=== PATIENT | male | born 1940 | race Caucasian/White ===

== ENCOUNTER 2020-07-16 11:27 | Outpatient (CLI) | payer OTHER, MEDICARE, SELFPAY ==
[2020-07-16 12:07] LABS: Abs Immature Grans 0.06 10^3/uL (0.0-0.06); Absolute Basophil Count 0.01 10^3/uL (0.0-0.2); Absolute Eosinophil Count 0.08 10^3/uL (0.0-0.7); Absolute Lymphocyte Count 0.37 10^3/uL (1.2-3.4); Absolute Monocyte Count 2.04 10^3/uL (0.1-0.8); Absolute Neutrophil Count 3.18 10^3/uL (1.2-6.7); Basophils % 0.2; Eosinophils % 1.4; HCT 31.6 % (40.0-50.0); Lymphocytes % 6.4; MCH 28.6 pg (27.0-33.0); MCHC 31.6 % (32.0-36.0); MCV 90.3 fL (80-95); MPV 10.1 fL (8.0-11.0); Monocytes % 35.5; Neutrophils % 55.5; Nucleated RBC 0 %; Platelet Count 267 10^3/uL (130-400); RDW 13.7 % (11.8-14.1); RDW-SD 44.8 fL; Reticulocyte 1.6 % (0.5-2.4); WBC 5.74 10^3/uL (4.4-10.8)
[2020-07-16 12:20] LABS: ALT 19 U/L (16-63); AST 54 U/L (15-37); Albumin 2.1 g/dL (3.4-5.0); Alkaline Phosphatase 94 U/L (46-116); Anion Gap 10.7 mmol/L (3-11); BUN 37 mg/dL (7-18); Bilirubin, Total 0.6 mg/dL (0.2-1.0); CO2 30.3 mmol/L (21.0-32.0); CREATININE 1.9 mg/dL (0.70-1.30); Calcium 9.4 mg/dL (8.5-10.1); Chloride 91 mmol/L (98-107); Estimated GFR 34.37 (mL/min/1.73m2); Glucose 144 mg/dL (74-106); LDH 265 U/L (85-227); Potassium 3.2 mmol/L (3.5-5.1); Sodium 132 mmol/L (136-145); Total Protein 8.3 g/dL (6.4-8.2)
[2020-07-16 12:21] LABS: Diff Comment Agrees w/ Instrument; Polychromasia Present
[2020-07-16 12:44] LABS: ESR 111 mm/hr (1-20)
== END 2020-07-16 11:47 ==
PROVIDERS: PCP Family Medicine; Visit Provider Internal Medicine Hematology & Oncology
DX: C81.72 Other Hodgkin lymphoma, intrathoracic lymph nodes (principal)
CPT/HCPCS: 36415; 80053; 85652; 83615; 85025; 85045

== ENCOUNTER 2020-08-13 02:42 | Outpatient (RCR) | payer OTHER, MEDICARE, SELFPAY ==
[2020-07-30] MEDS: Normal Saline Flush 10 ML SYR IVP (08:55)
[2020-07-30 09:01] LABS: Abs Immature Grans 0.38 10^3/uL (0.0-0.06); Absolute Basophil Count 0.01 10^3/uL (0.0-0.2); Absolute Eosinophil Count 0.03 10^3/uL (0.0-0.7); Absolute Lymphocyte Count 0.31 10^3/uL (1.2-3.4); Absolute Monocyte Count 1.66 10^3/uL (0.1-0.8); Absolute Neutrophil Count 4.73 10^3/uL (1.2-6.7); Basophils % 0.1; Eosinophils % 0.4; HCT 28.1 % (40.0-50.0); HGB 8.6 g/dL (13.5-17.5); Immature Grans % 5.3; Lymphocytes % 4.4; MCH 27.6 pg (27.0-33.0); MCHC 30.6 % (32.0-36.0); MCV 90.1 fL (80-95); MPV 10.1 fL (8.0-11.0); Monocytes % 23.3; Neutrophils % 66.5; Nucleated RBC 0 %; RBC 3.12 10^6/uL (4.36-5.78); RDW 14.8 % (11.8-14.1); RDW-SD 48.4 fL; WBC 7.12 10^3/uL (4.4-10.8)
[2020-07-30 09:16] LABS: ALT 37 U/L (16-63); AST 60 U/L (15-37); Albumin 1.8 g/dL (3.4-5.0); Alkaline Phosphatase 116 U/L (46-116); Anion Gap 12.5 mmol/L (3-11); BUN 43 mg/dL (7-18); Bilirubin, Total 0.9 mg/dL (0.2-1.0); CO2 29.5 mmol/L (21.0-32.0); CREATININE 1.7 mg/dL (0.70-1.30); Calcium 9.3 mg/dL (8.5-10.1); Chloride 97 mmol/L (98-107); Estimated GFR 39.07 (mL/min/1.73m2); Glucose 127 mg/dL (74-106); Potassium 3.3 mmol/L (3.5-5.1); Sodium 139 mmol/L (136-145); Total Protein 7.7 g/dL (6.4-8.2)
[2020-07-30 09:26] LABS: LDH 223 U/L (85-227)
[2020-07-30 09:32] LABS: Diff Comment Agrees w/ Instrument; Hypochromasia 2+; Platelet Count 252 10^3/uL (130-400)
[2020-07-30 09:33] LABS: Poikilocytes 2+; Polychromasia Present
[2020-07-30 10:01] LABS: Magnesium 1.1 mg/dL (1.8-2.4); PHOSPHORUS 3.4 mg/dL (2.6-4.7); Uric Acid 5.4 mg/dL (3.5-7.2)
[2020-07-30 15:28] LABS: ESR 56 mm/hr (<or=20)
[2020-08-06 09:50] LABS: ALT 23 U/L (16-63); AST 52 U/L (15-37); Albumin 2.1 g/dL (3.4-5.0); Alkaline Phosphatase 117 U/L (46-116); Anion Gap 10.9 mmol/L (3-11); BUN 15 mg/dL (7-18); Bilirubin, Total 0.7 mg/dL (0.2-1.0); CO2 28.1 mmol/L (21.0-32.0); CREATININE 1.3 mg/dL (0.70-1.30); Calcium 8.5 mg/dL (8.5-10.1); Chloride 97 mmol/L (98-107); Estimated GFR 53.25 (mL/min/1.73m2); Glucose 112 mg/dL (74-106); LDH 304 U/L (85-227); PHOSPHORUS 3.3 mg/dL (2.6-4.7); Sodium 136 mmol/L (136-145); Total Protein 7.2 g/dL (6.4-8.2); Uric Acid 4.7 mg/dL (3.5-7.2)
[2020-08-06 09:58] LABS: Abs Immature Grans 0.07 10^3/uL (0.0-0.06); Absolute Lymphocyte Count 0.29 10^3/uL (1.2-3.4); Absolute Monocyte Count 0.44 10^3/uL (0.1-0.8); Absolute Neutrophil Count 1.03 10^3/uL (1.2-6.7); HCT 24.5 % (40.0-50.0); HGB 7.5 g/dL (13.5-17.5); Immature Grans % 3.8; Lymphocytes % 15.8; MCH 27.3 pg (27.0-33.0); MCHC 30.6 % (32.0-36.0); MCV 89.1 fL (80-95); MPV 10.5 fL (8.0-11.0); Neutrophils % 56.4; Nucleated RBC 0 %; Platelet Count 170 10^3/uL (130-400); Potassium 2.8 mmol/L (3.5-5.1); RBC 2.75 10^6/uL (4.36-5.78); RDW 14.2 % (11.8-14.1); RDW-SD 45.9 fL; Reticulocyte 0.6 % (0.5-2.4)
[2020-08-06 10:36] LABS: WBC 1.83 10^3/uL (4.4-10.8)
[2020-08-06 10:37] LABS: Diff Comment Diff Reviewed
[2020-08-06 10:38] LABS: Hypochromasia 1+
[2020-08-06 14:58] LABS: ESR 43 mm/hr (<or=20)
== END 2020-08-16 23:59 | disposition home or self-care (01) ==
LOC: INF 02:42
PROVIDERS: PCP Family Medicine; Visit Provider Internal Medicine Hematology & Oncology
DX: C81.12 Nodular sclerosis Hodgkin lymphoma, intrathoracic lymph nodes (principal)
CPT/HCPCS: 36415; 80053; 85652; 83615; 83735; 84100; 84550; 85025; 85045

== ENCOUNTER 2020-09-10 08:20 | Outpatient (RCR) | payer OTHER, SELFPAY ==
[2020-08-20 09:41] LABS: Abs Immature Grans 0.37 10^3/uL (0.0-0.06); HCT 30.2 % (40.0-50.0); HGB 9.6 g/dL (13.5-17.5); MCH 28.6 pg (27.0-33.0); MCHC 31.8 % (32.0-36.0); MCV 89.9 fL (80-95); MPV 10.2 fL (8.0-11.0); Nucleated RBC 0 %; RBC 3.36 10^6/uL (4.36-5.78); RDW 19.6 % (11.8-14.1); RDW-SD 46.7 fL
[2020-08-20 10:00] LABS: ALT 31 U/L (16-63); AST 35 U/L (15-37); Albumin 2.6 g/dL (3.4-5.0); Alkaline Phosphatase 100 U/L (46-116); BUN 25 mg/dL (7-18); Bilirubin, Total 0.7 mg/dL (0.2-1.0); CREATININE 1.4 mg/dL (0.70-1.30); Calcium 8.2 mg/dL (8.5-10.1); Chloride 96 mmol/L (98-107); Estimated GFR 48.89 (mL/min/1.73m2); Glucose 100 mg/dL (74-106); LDH 558 U/L (85-227); Magnesium 1.8 mg/dL (1.8-2.4); PHOSPHORUS 3.7 mg/dL (2.6-4.7); Potassium 3.4 mmol/L (3.5-5.1); Sodium 134 mmol/L (136-145); Total Protein 6.6 g/dL (6.4-8.2); Uric Acid 6.8 mg/dL (3.5-7.2)
[2020-08-20 10:02] LABS: Absolute Lymphocyte Count 1.22 10^3/uL (1.2-3.4); Absolute Monocyte Count 2.04 10^3/uL (0.1-0.8); Absolute Neutrophil Count 3.26 10^3/uL (1.2-6.7); Diff Comment Manual Differential; Metamyelocytes % 3; Myelocytes % 1
[2020-08-20 10:03] LABS: Anisocytosis 3+; Polychromasia Present
[2020-08-20 10:04] LABS: Platelet Count 249 10^3/uL (130-400); Poikilocytes 1+; Reticulocyte 7.3 % (0.5-2.4)
[2020-08-20] MEDS: Normal Saline Flush 10 ML SYR IVP (10:34)
[2020-08-20 23:24] LABS: ESR 45 mm/hr (<or=20)
[2020-09-10 08:51] LABS: Absolute Basophil Count 0.02 10^3/uL (0.0-0.2); Absolute Eosinophil Count 0.17 10^3/uL (0.0-0.7); Absolute Lymphocyte Count 1.32 10^3/uL (1.2-3.4); Absolute Monocyte Count 0.75 10^3/uL (0.1-0.8); Absolute Neutrophil Count 3.46 10^3/uL (1.2-6.7); Basophils % 0.3; Eosinophils % 2.9; HCT 30.1 % (40.0-50.0); HGB 9.5 g/dL (13.5-17.5); Immature Grans % 1.7; Lymphocytes % 22.7; MCH 30.8 pg (27.0-33.0); MCHC 31.6 % (32.0-36.0); MCV 97.7 fL (80-95); MPV 10.1 fL (8.0-11.0); Monocytes % 12.9; Neutrophils % 59.5; Nucleated RBC 0 %; Platelet Count 234 10^3/uL (130-400); RBC 3.08 10^6/uL (4.36-5.78); RDW 20.6 % (11.8-14.1); RDW-SD 73.6 fL; WBC 5.82 10^3/uL (4.4-10.8)
[2020-09-10 09:06] LABS: ALT 30 U/L (16-63); AST 49 U/L (15-37); Albumin 3.2 g/dL (3.4-5.0); Alkaline Phosphatase 69 U/L (46-116); Anion Gap 10.6 mmol/L (3-11); BUN 35 mg/dL (7-18); Bilirubin, Total 0.5 mg/dL (0.2-1.0); CO2 29.4 mmol/L (21.0-32.0); CREATININE 1.4 mg/dL (0.70-1.30); Calcium 10.3 mg/dL (8.5-10.1); Chloride 99 mmol/L (98-107); Estimated GFR 48.89 (mL/min/1.73m2); Glucose 104 mg/dL (74-106); Potassium 3.3 mmol/L (3.5-5.1); Sodium 139 mmol/L (136-145); Total Protein 7.8 g/dL (6.4-8.2)
[2020-09-10] MEDS: Normal Saline Flush 10 ML SYR IVP (10:08)
[2020-09-10 14:06] LABS: ESR 74 mm/hr (<or=20)
== END 2020-09-16 23:59 | disposition home or self-care (01) ==
LOC: INF 08:20
PROVIDERS: PCP Family Medicine; Visit Provider Internal Medicine Hematology & Oncology
DX: C81.72 Other Hodgkin lymphoma, intrathoracic lymph nodes (principal); Z45.2 Encounter for adjustment and management of vascular access device
CPT/HCPCS: 36415; 80053; 85652; 83615; 83735; 84100; 84550; 85025; 85045

== ENCOUNTER 2020-10-15 01:47 | Outpatient (RCR) | payer OTHER, SELFPAY ==
[2020-09-24 12:36] LABS: Abs Immature Grans 0.04 10^3/uL (0.0-0.06); HCT 26.6 % (40.0-50.0); HGB 8.8 g/dL (13.5-17.5); MCH 32.1 pg (27.0-33.0); MCHC 33.1 % (32.0-36.0); MCV 97.1 fL (80-95); MPV 9.8 fL (8.0-11.0); Platelet Count 186 10^3/uL (130-400); RBC 2.74 10^6/uL (4.36-5.78); RDW 17.7 % (11.8-14.1); WBC 3.14 10^3/uL (4.4-10.8)
[2020-09-24] MEDS: Normal Saline Flush 10 ML SYR IVP (12:37)
[2020-09-24 12:39] LABS: ESR 29 mm//hr (0-20)
[2020-09-24 12:50] LABS: ALT 23 U/L (16-63); AST 39 U/L (15-37); Albumin 3.4 g/dL (3.4-5.0); Alkaline Phosphatase 67 U/L (46-116); Anion Gap 6.7 mmol/L (3-11); BUN 23 mg/dL (7-18); Bilirubin, Total 0.7 mg/dL (0.2-1.0); CO2 32.3 mmol/L (21.0-32.0); CREATININE 1.3 mg/dL (0.70-1.30); Calcium 9.3 mg/dL (8.5-10.1); Chloride 100 mmol/L (98-107); Estimated GFR 53.25 (mL/min/1.73m2); Glucose 98 mg/dL (74-106); Potassium 3.2 mmol/L (3.5-5.1); Sodium 139 mmol/L (136-145); Total Protein 7.5 g/dL (6.4-8.2)
[2020-09-24 13:12] LABS: Absolute Lymphocyte Count 1.73 10^3/uL (1.2-3.4); Absolute Monocyte Count 0.31 10^3/uL (0.1-0.8); Atypical Lymphocytes % 0; Bands % 0; Nucleated RBC 1 %
[2020-09-24 13:15] LABS: Diff Comment Manual Differential
[2020-09-24 13:17] LABS: Basophilic Stippling Present; Microcytosis 1+; Polychromasia Present
[2020-10-01 08:14] LABS: Abs Immature Grans 0.02 10^3/uL (0.0-0.06); Absolute Eosinophil Count 0.01 10^3/uL (0.0-0.7); Absolute Lymphocyte Count 1.12 10^3/uL (1.2-3.4); Absolute Monocyte Count 0.72 10^3/uL (0.1-0.8); Absolute Neutrophil Count 0.76 10^3/uL (1.2-6.7); Eosinophils % 0.4; HCT 27.5 % (40.0-50.0); HGB 9.2 g/dL (13.5-17.5); Immature Grans % 0.8; Lymphocytes % 42.6; MCH 32.7 pg (27.0-33.0); MCHC 33.5 % (32.0-36.0); MCV 97.9 fL (80-95); MPV 10.1 fL (8.0-11.0); Monocytes % 27.4; Neutrophils % 28.8; Nucleated RBC 0 %; Platelet Count 150 10^3/uL (130-400); RBC 2.81 10^6/uL (4.36-5.78); RDW 19.3 % (11.8-14.1); RDW-SD 68.3 fL; WBC 2.63 10^3/uL (4.4-10.8)
[2020-10-01 08:24] LABS: ALT 21 U/L (16-63); AST 29 U/L (15-37); Albumin 3.5 g/dL (3.4-5.0); Alkaline Phosphatase 60 U/L (46-116); Anion Gap 8.8 mmol/L (3-11); BUN 23 mg/dL (7-18); Bilirubin, Total 0.6 mg/dL (0.2-1.0); CO2 32.2 mmol/L (21.0-32.0); CREATININE 1.3 mg/dL (0.70-1.30); Calcium 9.4 mg/dL (8.5-10.1); Chloride 101 mmol/L (98-107); Estimated GFR 53.25 (mL/min/1.73m2); Glucose 145 mg/dL (74-106); Potassium 3.3 mmol/L (3.5-5.1); Sodium 142 mmol/L (136-145); Total Protein 7.3 g/dL (6.4-8.2)
[2020-10-01] MEDS: Normal Saline Flush 10 ML SYR IVP (08:29)
[2020-10-01 08:31] LABS: ESR 21 mm//hr (0-20)
[2020-10-01 08:34] LABS: Anisocytosis 1+; Diff Comment Diff Reviewed; Polychromasia Present
[2020-10-08] MEDS: Normal Saline Flush 10 ML SYR IVP (07:15)
[2020-10-08 07:33] LABS: Abs Immature Grans 0.06 10^3/uL (0.0-0.06); Absolute Basophil Count 0.02 10^3/uL (0.0-0.2); Absolute Eosinophil Count 0.07 10^3/uL (0.0-0.7); Absolute Monocyte Count 0.93 10^3/uL (0.1-0.8); Absolute Neutrophil Count 0.83 10^3/uL (1.2-6.7); Basophils % 0.6; Eosinophils % 2.1; HCT 31.3 % (40.0-50.0); HGB 10.2 g/dL (13.5-17.5); Immature Grans % 1.8; MCH 32.4 pg (27.0-33.0); MCHC 32.6 % (32.0-36.0); MCV 99.4 fL (80-95); MPV 10.6 fL (8.0-11.0); Monocytes % 27.3; Neutrophils % 24.2; Nucleated RBC 0 %; Platelet Count 141 10^3/uL (130-400); RBC 3.15 10^6/uL (4.36-5.78); RDW 16.8 % (11.8-14.1); RDW-SD 62.4 fL; WBC 3.41 10^3/uL (4.4-10.8)
[2020-10-08 07:37] LABS: ESR 34 mm//hr (0-20)
[2020-10-08 07:40] LABS: ALT 17 U/L (16-63); AST 28 U/L (15-37); Albumin 3.6 g/dL (3.4-5.0); Alkaline Phosphatase 60 U/L (46-116); Anion Gap 6.3 mmol/L (3-11); BUN 26 mg/dL (7-18); Bilirubin, Total 0.7 mg/dL (0.2-1.0); CO2 31.7 mmol/L (21.0-32.0); CREATININE 1.3 mg/dL (0.70-1.30); Calcium 9.4 mg/dL (8.5-10.1); Chloride 102 mmol/L (98-107); Estimated GFR 53.25 (mL/min/1.73m2); Glucose 90 mg/dL (74-106); Potassium 3.3 mmol/L (3.5-5.1); Sodium 140 mmol/L (136-145); Total Protein 7.6 g/dL (6.4-8.2)
[2020-10-08 07:55] LABS: Anisocytosis 1+; Diff Comment Agrees w/ Instrument
[2020-10-08 07:56] LABS: Polychromasia Present
== END 2020-10-16 23:59 | disposition home or self-care (01) ==
LOC: INF 01:47
PROVIDERS: PCP Family Medicine; Visit Provider Internal Medicine Hematology & Oncology
DX: C81.72 Other Hodgkin lymphoma, intrathoracic lymph nodes (principal); Z45.2 Encounter for adjustment and management of vascular access device
CPT/HCPCS: 36591; 80053; 85652; 86900; 86901; 85025

== ENCOUNTER 2020-11-05 02:46 | Outpatient (RCR) | payer OTHER, SELFPAY ==
[2020-10-22] MEDS: Normal Saline Flush 10 ML SYR IVP (08:05)
[2020-10-22 08:16] LABS: HCT 28.6 % (40.0-50.0); HGB 9.5 g/dL (13.5-17.5); MCH 32.3 pg (27.0-33.0); MCHC 33.2 % (32.0-36.0); MCV 97.3 fL (80-95); MPV 10.5 fL (8.0-11.0); Nucleated RBC 0 %; Platelet Count 184 10^3/uL (130-400); RBC 2.94 10^6/uL (4.36-5.78); RDW 13.7 % (11.8-14.1); RDW-SD 49.3 fL; WBC 14.06 10^3/uL (4.4-10.8)
[2020-10-22 08:22] LABS: ESR 32 mm//hr (0-20)
[2020-10-22 08:37] LABS: Absolute Basophil Count 0.14 10^3/uL (0.0-0.2); Absolute Lymphocyte Count 4.08 10^3/uL (1.2-3.4); Absolute Monocyte Count 1.41 10^3/uL (0.1-0.8); Absolute Neutrophil Count 8.15 10^3/uL (1.2-6.7); Bands % 17; Diff Comment Manual Differential; RBC Morphology Normal
[2020-10-22 08:38] LABS: ALT 15 U/L (16-63); AST 25 U/L (15-37); Albumin 3.5 g/dL (3.4-5.0); Alkaline Phosphatase 76 U/L (46-116); Anion Gap 7.5 mmol/L (3-11); BUN 20 mg/dL (7-18); Bilirubin, Total 0.3 mg/dL (0.2-1.0); CO2 32.5 mmol/L (21.0-32.0); CREATININE 1.3 mg/dL (0.70-1.30); Calcium 9.1 mg/dL (8.5-10.1); Chloride 100 mmol/L (98-107); Estimated GFR 53.25 (mL/min/1.73m2); Glucose 139 mg/dL (74-106); Potassium 3.2 mmol/L (3.5-5.1); Sodium 140 mmol/L (136-145); Total Protein 7.7 g/dL (6.4-8.2)
[2020-10-22 08:57] LABS: Vitamin D 25 Total 33.2 ng/mL (30-100)
[2020-10-22 10:13] LABS: Metamyelocytes % 2
== END 2020-11-16 23:59 | disposition home or self-care (01) ==
LOC: INF 02:46
PROVIDERS: PCP Family Medicine; Visit Provider Internal Medicine Hematology & Oncology
DX: C44.622 Squamous cell carcinoma of skin of right upper limb, including shoulder (principal); C81.12 Nodular sclerosis Hodgkin lymphoma, intrathoracic lymph nodes; E43 Unspecified severe protein-calorie malnutrition; C81.72 Other Hodgkin lymphoma, intrathoracic lymph nodes; Z45.2 Encounter for adjustment and management of vascular access device
CPT/HCPCS: 36591; 80053; 82306; 85652; 85025

== ENCOUNTER 2020-12-10 13:00 | Outpatient (RCR) | payer OTHER, SELFPAY ==
[2020-12-10] MEDS: Heparin 500 UNITS/5 ML SYRINGE (13:33)
[2020-12-10] MEDS: Normal Saline Flush 10 ML SYR IVP (13:34)
[2020-12-10 13:41] LABS: Abs Immature Grans 0.08 10^3/uL (0.0-0.06); Absolute Eosinophil Count 0.03 10^3/uL (0.0-0.7); Absolute Lymphocyte Count 0.72 10^3/uL (1.2-3.4); Absolute Monocyte Count 0.65 10^3/uL (0.1-0.8); Absolute Neutrophil Count 2.58 10^3/uL (1.2-6.7); Eosinophils % 0.7; HCT 27.9 % (40.0-50.0); Lymphocytes % 17.7; MCH 31.3 pg (27.0-33.0); MCHC 32.3 % (32.0-36.0); MCV 96.9 fL (80-95); MPV 10.6 fL (8.0-11.0); Neutrophils % 63.6; Nucleated RBC 0 %; RBC 2.88 10^6/uL (4.36-5.78); RDW-SD 59.5 fL; WBC 4.06 10^3/uL (4.4-10.8)
[2020-12-10 13:46] LABS: ESR 45 mm/hr (0-20)
[2020-12-10 13:56] LABS: ALT 14 U/L (16-63); AST 18 U/L (15-37); Albumin 3.1 g/dL (3.4-5.0); Alkaline Phosphatase 56 U/L (46-116); BUN 19 mg/dL (7-18); Bilirubin, Total 0.7 mg/dL (0.2-1.0); CREATININE 1.3 mg/dL (0.70-1.30); Chloride 102 mmol/L (98-107); Estimated GFR 53.25 (mL/min/1.73m2); Glucose 112 mg/dL (74-106); Potassium 4.4 mmol/L (3.5-5.1); Sodium 139 mmol/L (136-145); Total Protein 7.6 g/dL (6.4-8.2)
[2020-12-10 13:59] LABS: Anisocytosis 1+; Diff Comment Diff Reviewed; Polychromasia Present
[2020-12-10 14:00] LABS: Platelet Count 99 10^3/uL (130-400)
== END 2020-12-16 23:59 | disposition home or self-care (01) ==
LOC: INF 13:00
PROVIDERS: PCP Family Medicine; Visit Provider Internal Medicine Hematology & Oncology
DX: C81.72 Other Hodgkin lymphoma, intrathoracic lymph nodes (principal); Z45.2 Encounter for adjustment and management of vascular access device
CPT/HCPCS: 80053; 85652; 85025

== ENCOUNTER 2020-12-31 03:04 | Outpatient (RCR) | payer OTHER, SELFPAY ==
[2020-12-31 10:36] LABS: Abs Immature Grans 0.05 10^3/uL (0.0-0.06); Absolute Basophil Count 0.01 10^3/uL (0.0-0.2); Absolute Eosinophil Count 0.14 10^3/uL (0.0-0.7); Absolute Lymphocyte Count 1.57 10^3/uL (1.2-3.4); Absolute Monocyte Count 0.66 10^3/uL (0.1-0.8); Basophils % 0.2; Eosinophils % 3.5; HCT 30.3 % (40.0-50.0); HGB 9.6 g/dL (13.5-17.5); Immature Grans % 1.2; MCH 31.8 pg (27.0-33.0); MCHC 31.7 % (32.0-36.0); MCV 100.3 fL (80-95); Monocytes % 16.4; Neutrophils % 39.7; Nucleated RBC 0 %; Platelet Count 145 10^3/uL (130-400); RBC 3.02 10^6/uL (4.36-5.78); RDW 17.8 % (11.8-14.1); RDW-SD 65.1 fL; WBC 4.03 10^3/uL (4.4-10.8)
[2020-12-31] MEDS: Normal Saline Flush 10 ML SYR IVP (10:39)
[2020-12-31 10:51] LABS: ALT 12 U/L (16-63); AST 20 U/L (15-37); Albumin 3.5 g/dL (3.4-5.0); Alkaline Phosphatase 55 U/L (46-116); Anion Gap 6.8 mmol/L (3-11); BUN 26 mg/dL (7-18); Bilirubin, Total 0.5 mg/dL (0.2-1.0); CO2 29.2 mmol/L (21.0-32.0); CREATININE 1.3 mg/dL (0.70-1.30); Calcium 9.1 mg/dL (8.5-10.1); Chloride 103 mmol/L (98-107); Estimated GFR 53.25 (mL/min/1.73m2); Glucose 96 mg/dL (74-106); Potassium 3.8 mmol/L (3.5-5.1); Sodium 139 mmol/L (136-145); Total Protein 7.8 g/dL (6.4-8.2)
[2020-12-31 14:10] LABS: ESR 27 mm/hr (0-20)
== END 2021-01-16 23:59 | disposition home or self-care (01) ==
LOC: INF 03:04
PROVIDERS: PCP Family Medicine; Visit Provider Internal Medicine Hematology & Oncology
DX: C81.72 Other Hodgkin lymphoma, intrathoracic lymph nodes (principal); Z45.2 Encounter for adjustment and management of vascular access device
CPT/HCPCS: 36591; 80053; 85652; 85025

== ENCOUNTER 2021-02-25 07:25 | Outpatient (RCR) | payer MEDICARE, OTHER, SELFPAY ==
[2021-02-25] MEDS: Normal Saline Flush 10 ML SYR IVP (09:13)
[2021-02-25 09:34] LABS: Abs Immature Grans 0.03 10^3/uL (0.0-0.06); Absolute Basophil Count 0.02 10^3/uL (0.0-0.2); Absolute Eosinophil Count 0.15 10^3/uL (0.0-0.7); Absolute Monocyte Count 1.02 10^3/uL (0.1-0.8); Absolute Neutrophil Count 1.58 10^3/uL (1.2-6.7); Basophils % 0.4; Eosinophils % 3.3; HCT 36.8 % (40.0-50.0); HGB 11.9 g/dL (13.5-17.5); Immature Grans % 0.7; Lymphocytes % 37.8; MCH 31.5 pg (27.0-33.0); MCHC 32.3 % (32.0-36.0); MCV 97.4 fL (80-95); MPV 10.5 fL (8.0-11.0); Monocytes % 22.7; Neutrophils % 35.1; Nucleated RBC 0 %; Platelet Count 123 10^3/uL (130-400); RBC 3.78 10^6/uL (4.36-5.78); RDW-SD 45.7 fL
[2021-02-25 09:46] LABS: ALT 16 U/L (16-63); AST 18 U/L (15-37); Albumin 3.9 g/dL (3.4-5.0); Alkaline Phosphatase 65 U/L (46-116); Anion Gap 9.7 mmol/L (3-11); BUN 32 mg/dL (7-18); Bilirubin, Total 0.4 mg/dL (0.2-1.0); CO2 26.3 mmol/L (21.0-32.0); CREATININE 1.3 mg/dL (0.70-1.30); Calcium 9.1 mg/dL (8.5-10.1); Chloride 106 mmol/L (98-107); Estimated GFR 53.12 (mL/min/1.73m2); Glucose 93 mg/dL (74-106); Potassium 4.1 mmol/L (3.5-5.1); Sodium 142 mmol/L (136-145); Total Protein 8.3 g/dL (6.4-8.2)
== END 2021-03-18 23:59 | disposition home or self-care (01) ==
LOC: INF 07:25
PROVIDERS: PCP Family Medicine; Visit Provider Internal Medicine Hematology & Oncology
DX: C81.72 Other Hodgkin lymphoma, intrathoracic lymph nodes (principal); Z45.2 Encounter for adjustment and management of vascular access device
CPT/HCPCS: 36591; 80053; 85025

== ENCOUNTER 2021-05-27 02:28 | Outpatient (RCR) | payer MEDICARE, OTHER, SELFPAY ==
[2021-05-27] MEDS: Normal Saline Flush 10 ML SYR IVP (13:27)
[2021-05-27 13:36] LABS: Abs Immature Grans 0.04 10^3/uL (0.0-0.06); Absolute Basophil Count 0.03 10^3/uL (0.0-0.2); Absolute Eosinophil Count 0.13 10^3/uL (0.0-0.7); Absolute Lymphocyte Count 1.96 10^3/uL (1.2-3.4); Absolute Monocyte Count 0.97 10^3/uL (0.1-0.8); Absolute Neutrophil Count 2.61 10^3/uL (1.2-6.7); Basophils % 0.5; Eosinophils % 2.3; HCT 40.9 % (40.0-50.0); HGB 13.6 g/dL (13.5-17.5); Immature Grans % 0.7; Lymphocytes % 34.1; MCH 31.4 pg (27.0-33.0); MCHC 33.3 % (32.0-36.0); MCV 94.5 fL (80-95); MPV 9.7 fL (8.0-11.0); Monocytes % 16.9; Neutrophils % 45.5; Nucleated RBC 0 %; Platelet Count 129 10^3/uL (130-400); RBC 4.33 10^6/uL (4.36-5.78); RDW-SD 44.6 fL; WBC 5.74 10^3/uL (4.4-10.8)
[2021-05-27 13:38] LABS: ESR 21 mm/hr (0-20)
[2021-05-27 13:51] LABS: ALT 12 U/L (16-63); AST 20 U/L (15-37); Albumin 4.4 g/dL (3.4-5.0); Alkaline Phosphatase 54 U/L (46-116); BUN 42 mg/dL (7-18); Bilirubin, Total 0.6 mg/dL (0.2-1.0); CREATININE 1.4 mg/dL (0.70-1.30); Calcium 9.5 mg/dL (8.5-10.1); Chloride 103 mmol/L (98-107); Estimated GFR 48.76 (mL/min/1.73m2); Glucose 94 mg/dL (74-106); Potassium 3.6 mmol/L (3.5-5.1); Sodium 140 mmol/L (136-145); Total Protein 8.8 g/dL (6.4-8.2)
[2021-05-27 17:42] LABS: FREE T4 0.82 ng/dL (0.76-1.46); TSH 2.41 uIU/mL (0.36-3.74)
== END 2021-06-18 23:59 | disposition home or self-care (01) ==
LOC: INF 02:28
PROVIDERS: PCP Family Medicine; Visit Provider Internal Medicine Hematology & Oncology
DX: C81.72 Other Hodgkin lymphoma, intrathoracic lymph nodes (principal); E06.4 Drug-induced thyroiditis; Z45.2 Encounter for adjustment and management of vascular access device
CPT/HCPCS: 36591; 80053; 85652; 84439; 84443; 85025

== ENCOUNTER 2021-07-12 02:53 | Outpatient (RCR) | payer MEDICARE, OTHER, SELFPAY ==
[2021-06-24] MEDS: Normal Saline Flush 10 ML SYR IVP (08:29)
[2021-06-24 08:52] LABS: Abs Immature Grans 0.06 10^3/uL (0.0-0.06); Absolute Basophil Count 0.04 10^3/uL (0.0-0.2); Absolute Eosinophil Count 0.38 10^3/uL (0.0-0.7); Absolute Lymphocyte Count 1.69 10^3/uL (1.2-3.4); Absolute Neutrophil Count 3.53 10^3/uL (1.2-6.7); Basophils % 0.6; Eosinophils % 5.4; HCT 37.8 % (40.0-50.0); HGB 12.6 g/dL (13.5-17.5); Immature Grans % 0.9; Lymphocytes % 24.1; MCH 31.9 pg (27.0-33.0); MCHC 33.3 % (32.0-36.0); MCV 95.7 fL (80-95); MPV 9.6 fL (8.0-11.0); Monocytes % 18.6; Neutrophils % 50.4; Nucleated RBC 0 %; Platelet Count 153 10^3/uL (130-400); RBC 3.95 10^6/uL (4.36-5.78); RDW 12.5 % (11.8-14.1); RDW-SD 44.1 fL
[2021-06-24 09:08] LABS: ALT 12 U/L (16-63); AST 22 U/L (15-37); Albumin 4.1 g/dL (3.4-5.0); Alkaline Phosphatase 61 U/L (46-116); Anion Gap 10.6 mmol/L (3-11); BUN 28 mg/dL (7-18); Bilirubin, Total 0.7 mg/dL (0.2-1.0); CO2 25.4 mmol/L (21.0-32.0); CREATININE 1.5 mg/dL (0.70-1.30); Calcium 9.1 mg/dL (8.5-10.1); Chloride 105 mmol/L (98-107); Estimated GFR 45.03 (mL/min/1.73m2); Glucose 105 mg/dL (74-106); Potassium 3.8 mmol/L (3.5-5.1); Sodium 141 mmol/L (136-145); Total Protein 8.5 g/dL (6.4-8.2)
[2021-07-12 08:50] LABS: Abs Immature Grans 0.03 10^3/uL (0.0-0.06); Absolute Basophil Count 0.02 10^3/uL (0.0-0.2); Absolute Eosinophil Count 0.35 10^3/uL (0.0-0.7); Absolute Lymphocyte Count 1.15 10^3/uL (1.2-3.4); Absolute Monocyte Count 0.91 10^3/uL (0.1-0.8); Basophils % 0.5; Eosinophils % 8.2; HCT 35.9 % (40.0-50.0); HGB 11.7 g/dL (13.5-17.5); Immature Grans % 0.7; Lymphocytes % 26.9; MCH 31.5 pg (27.0-33.0); MCHC 32.6 % (32.0-36.0); MCV 96.8 fL (80-95); MPV 10.2 fL (8.0-11.0); Monocytes % 21.3; Neutrophils % 42.4; Nucleated RBC 0 %; Platelet Count 114 10^3/uL (130-400); RBC 3.71 10^6/uL (4.36-5.78); RDW 12.8 % (11.8-14.1); RDW-SD 45.5 fL; WBC 4.28 10^3/uL (4.4-10.8)
[2021-07-12 08:52] LABS: Absolute Neutrophil Count 1.81 10^3/uL (1.2-6.7)
[2021-07-12] MEDS: Normal Saline Flush 10 ML SYR IVP (09:04)
[2021-07-12 09:10] LABS: ALT 9 U/L (16-63); AST 19 U/L (15-37); Albumin 3.9 g/dL (3.4-5.0); Alkaline Phosphatase 62 U/L (46-116); Anion Gap 9.6 mmol/L (3-11); BUN 22 mg/dL (7-18); Bilirubin, Total 0.5 mg/dL (0.2-1.0); CO2 25.4 mmol/L (21.0-32.0); CREATININE 1.4 mg/dL (0.70-1.30); Calcium 8.7 mg/dL (8.5-10.1); Chloride 106 mmol/L (98-107); Estimated GFR 48.76 (mL/min/1.73m2); Glucose 100 mg/dL (74-106); Potassium 3.9 mmol/L (3.5-5.1); Sodium 141 mmol/L (136-145); Total Protein 7.9 g/dL (6.4-8.2)
== END 2021-07-19 23:59 | disposition home or self-care (01) ==
LOC: INF 02:53
PROVIDERS: PCP Family Medicine; Visit Provider Internal Medicine Hematology & Oncology
DX: C81.72 Other Hodgkin lymphoma, intrathoracic lymph nodes (principal); Z45.2 Encounter for adjustment and management of vascular access device
CPT/HCPCS: 36591; 80053; 85025

== ENCOUNTER 2021-08-05 01:28 | Outpatient (RCR) | payer MEDICARE, OTHER, SELFPAY ==
[2021-08-05] MEDS: Normal Saline Flush 10 ML SYR IVP (08:32)
[2021-08-05 08:46] LABS: Abs Immature Grans 0.04 10^3/uL (0.0-0.06); Absolute Basophil Count 0.03 10^3/uL (0.0-0.2); Absolute Eosinophil Count 0.28 10^3/uL (0.0-0.7); Absolute Lymphocyte Count 1.79 10^3/uL (1.2-3.4); Absolute Monocyte Count 1.04 10^3/uL (0.1-0.8); Absolute Neutrophil Count 1.96 10^3/uL (1.2-6.7); Basophils % 0.6; Eosinophils % 5.4; HCT 38.7 % (40.0-50.0); HGB 12.9 g/dL (13.5-17.5); Immature Grans % 0.8; Lymphocytes % 34.8; MCH 31.6 pg (27.0-33.0); MCHC 33.3 % (32.0-36.0); MCV 94.9 fL (80-95); MPV 10.2 fL (8.0-11.0); Monocytes % 20.2; Neutrophils % 38.2; Nucleated RBC 0 %; Platelet Count 114 10^3/uL (130-400); RBC 4.08 10^6/uL (4.36-5.78); RDW 13.1 % (11.8-14.1); RDW-SD 45.7 fL; WBC 5.14 10^3/uL (4.4-10.8)
[2021-08-05 09:15] LABS: ALT 11 U/L (16-63); AST 17 U/L (15-37); Alkaline Phosphatase 63 U/L (46-116); Anion Gap 10.4 mmol/L (3-11); BUN 16 mg/dL (7-18); Bilirubin, Total 0.6 mg/dL (0.2-1.0); CO2 27.6 mmol/L (21.0-32.0); CREATININE 1.3 mg/dL (0.70-1.30); Calcium 8.8 mg/dL (8.5-10.1); Chloride 105 mmol/L (98-107); Estimated GFR 53.12 (mL/min/1.73m2); Glucose 102 mg/dL (74-106); Potassium 3.7 mmol/L (3.5-5.1); Sodium 143 mmol/L (136-145); TSH 3.71 uIU/mL (0.36-3.74)
== END 2021-08-16 23:59 | disposition home or self-care (01) ==
LOC: INF 01:28
PROVIDERS: PCP Family Medicine; Visit Provider Internal Medicine Hematology & Oncology
DX: C81.12 Nodular sclerosis Hodgkin lymphoma, intrathoracic lymph nodes (principal); E06.4 Drug-induced thyroiditis; Z45.2 Encounter for adjustment and management of vascular access device
CPT/HCPCS: 36591; 80053; 84436; 84443; 85025

== ENCOUNTER 2021-09-16 02:55 | Outpatient (RCR) | payer MEDICARE, OTHER, SELFPAY ==
[2021-08-26] MEDS: Normal Saline Flush 10 ML SYR IVP (09:38)
[2021-08-26 10:02] LABS: Abs Immature Grans 0.02 10^3/uL (0.0-0.06); Absolute Basophil Count 0.03 10^3/uL (0.0-0.2); Absolute Eosinophil Count 0.15 10^3/uL (0.0-0.7); Absolute Lymphocyte Count 1.62 10^3/uL (1.2-3.4); Absolute Monocyte Count 0.88 10^3/uL (0.1-0.8); Absolute Neutrophil Count 2.17 10^3/uL (1.2-6.7); Basophils % 0.6; Eosinophils % 3.1; HCT 40.5 % (40.0-50.0); HGB 13.6 g/dL (13.5-17.5); Immature Grans % 0.4; Lymphocytes % 33.3; MCH 31.4 pg (27.0-33.0); MCHC 33.6 % (32.0-36.0); MCV 93.5 fL (80-95); MPV 9.9 fL (8.0-11.0); Monocytes % 18.1; Neutrophils % 44.5; Nucleated RBC 0 %; Platelet Count 124 10^3/uL (130-400); RBC 4.33 10^6/uL (4.36-5.78); RDW-SD 44.5 fL; WBC 4.87 10^3/uL (4.4-10.8)
[2021-08-26 10:29] LABS: ALT 7 U/L (16-63); AST 20 U/L (15-37); Albumin 4.4 g/dL (3.4-5.0); Alkaline Phosphatase 61 U/L (46-116); Anion Gap 11.2 mmol/L (3-11); BUN 23 mg/dL (7-18); Bilirubin, Total 1.1 mg/dL (0.2-1.0); CO2 25.8 mmol/L (21.0-32.0); CREATININE 1.4 mg/dL (0.70-1.30); Calcium 9.4 mg/dL (8.5-10.1); Chloride 105 mmol/L (98-107); Estimated GFR 48.76 (mL/min/1.73m2); Glucose 100 mg/dL (74-106); Potassium 3.7 mmol/L (3.5-5.1); Sodium 142 mmol/L (136-145); TSH 2.04 uIU/mL (0.36-3.74); Total Protein 8.6 g/dL (6.4-8.2)
[2021-08-26 10:38] LABS: T4 7.8 ug/mL (4.7-13.3)
[2021-09-16] MEDS: Normal Saline Flush 10 ML SYR IVP (07:13)
[2021-09-16 07:27] LABS: Abs Immature Grans 0.03 10^3/uL (0.0-0.06); Absolute Basophil Count 0.03 10^3/uL (0.0-0.2); Absolute Eosinophil Count 0.14 10^3/uL (0.0-0.7); Absolute Lymphocyte Count 1.71 10^3/uL (1.2-3.4); Absolute Monocyte Count 0.85 10^3/uL (0.1-0.8); Absolute Neutrophil Count 2.05 10^3/uL (1.2-6.7); Basophils % 0.6; Eosinophils % 2.9; HCT 40.5 % (40.0-50.0); HGB 13.6 g/dL (13.5-17.5); Immature Grans % 0.6; Lymphocytes % 35.6; MCH 31.6 pg (27.0-33.0); MCHC 33.6 % (32.0-36.0); MPV 10.2 fL (8.0-11.0); Monocytes % 17.7; Neutrophils % 42.6; Nucleated RBC 0 %; Platelet Count 105 10^3/uL (130-400); RBC 4.31 10^6/uL (4.36-5.78); RDW 12.6 % (11.8-14.1); RDW-SD 43.4 fL; WBC 4.81 10^3/uL (4.4-10.8)
[2021-09-16 07:48] LABS: ALT 20 U/L (16-63); AST 18 U/L (15-37); Albumin 4.4 g/dL (3.4-5.0); Alkaline Phosphatase 57 U/L (46-116); Anion Gap 9.6 mmol/L (3-11); BUN 25 mg/dL (7-18); Bilirubin, Total 0.8 mg/dL (0.2-1.0); CO2 28.4 mmol/L (21.0-32.0); CREATININE 1.4 mg/dL (0.70-1.30); Calcium 9.3 mg/dL (8.5-10.1); Chloride 104 mmol/L (98-107); Estimated GFR 48.76 (mL/min/1.73m2); Glucose 116 mg/dL (74-106); Potassium 3.7 mmol/L (3.5-5.1); Sodium 142 mmol/L (136-145); TSH 2.32 uIU/mL (0.36-3.74); Total Protein 8.4 g/dL (6.4-8.2)
== END 2021-09-16 23:59 | disposition home or self-care (01) ==
LOC: INF 02:55
PROVIDERS: PCP Family Medicine; Visit Provider Internal Medicine Hematology & Oncology
DX: C81.12 Nodular sclerosis Hodgkin lymphoma, intrathoracic lymph nodes (principal); E06.4 Drug-induced thyroiditis; Z45.2 Encounter for adjustment and management of vascular access device
CPT/HCPCS: 36591; 80053; 84436; 84439; 84443; 85025

== ENCOUNTER 2021-10-07 01:57 | Outpatient (RCR) | payer MEDICARE, OTHER, SELFPAY ==
[2021-10-07 07:01] LABS: Abs Immature Grans 0.03 10^3/uL (0.0-0.06); Absolute Basophil Count 0.03 10^3/uL (0.0-0.2); Absolute Eosinophil Count 0.13 10^3/uL (0.0-0.7); Absolute Lymphocyte Count 1.91 10^3/uL (1.2-3.4); Absolute Monocyte Count 0.78 10^3/uL (0.1-0.8); Basophils % 0.7; HCT 39.2 % (40.0-50.0); HGB 13.1 g/dL (13.5-17.5); Immature Grans % 0.7; Lymphocytes % 43.6; MCH 31.6 pg (27.0-33.0); MCHC 33.4 % (32.0-36.0); MCV 94.5 fL (80-95); MPV 9.9 fL (8.0-11.0); Monocytes % 17.8; Neutrophils % 34.2; Platelet Count 107 10^3/uL (130-400); RBC 4.15 10^6/uL (4.36-5.78); RDW 12.4 % (11.8-14.1); RDW-SD 42.8 fL; WBC 4.38 10^3/uL (4.4-10.8)
[2021-10-07] MEDS: Normal Saline Flush 10 ML SYR IVP (07:01)
[2021-10-07 07:05] LABS: ESR 10 mm/hr (0-20)
[2021-10-07 07:29] LABS: ALT 14 U/L (16-63); AST 19 U/L (15-37); Albumin 4.1 g/dL (3.4-5.0); Alkaline Phosphatase 53 U/L (46-116); Anion Gap 5.6 mmol/L (3-11); BUN 18 mg/dL (7-18); Bilirubin, Total 0.7 mg/dL (0.2-1.0); CO2 29.4 mmol/L (21.0-32.0); CREATININE 1.4 mg/dL (0.70-1.30); Chloride 106 mmol/L (98-107); Estimated GFR 48.76 (mL/min/1.73m2); Glucose 91 mg/dL (74-106); Potassium 4.1 mmol/L (3.5-5.1); Sodium 141 mmol/L (136-145); TSH 2.68 uIU/mL (0.36-3.74)
[2021-10-07 13:44] LABS: T4 8.1 ug/mL (4.7-13.3)
== END 2021-10-16 23:59 | disposition home or self-care (01) ==
LOC: INF 01:57
PROVIDERS: PCP Family Medicine; Visit Provider Internal Medicine Hematology & Oncology
DX: E06.4 Drug-induced thyroiditis (principal); Z45.2 Encounter for adjustment and management of vascular access device; C81.12 Nodular sclerosis Hodgkin lymphoma, intrathoracic lymph nodes
CPT/HCPCS: 36591; 80053; 85652; 84436; 84443; 85025

== ENCOUNTER 2021-10-28 01:46 | Outpatient (RCR) | payer MEDICARE, OTHER, SELFPAY ==
[2021-10-28] MEDS: Normal Saline Flush 10 ML SYR IVP (09:09)
[2021-10-28 09:20] LABS: Abs Immature Grans 0.04 10^3/uL (0.0-0.06); Absolute Basophil Count 0.02 10^3/uL (0.0-0.2); Absolute Eosinophil Count 0.16 10^3/uL (0.0-0.7); Absolute Lymphocyte Count 1.36 10^3/uL (1.2-3.4); Absolute Monocyte Count 1.16 10^3/uL (0.1-0.8); Absolute Neutrophil Count 1.05 10^3/uL (1.2-6.7); Basophils % 0.5; Eosinophils % 4.2; HCT 40.7 % (40.0-50.0); HGB 13.4 g/dL (13.5-17.5); Immature Grans % 1.1; Lymphocytes % 35.9; MCH 31.5 pg (27.0-33.0); MCHC 32.9 % (32.0-36.0); MCV 96 fL (80-95); MPV 10.2 fL (8.0-11.0); Monocytes % 30.6; Neutrophils % 27.7; RBC 4.25 10^6/uL (4.36-5.78); RDW 12.9 % (11.8-14.1); RDW-SD 45.3 fL; WBC 3.79 10^3/uL (4.4-10.8)
[2021-10-28 09:23] LABS: ESR 22 mm/hr (0-20)
[2021-10-28 09:39] LABS: ALT 10 U/L (16-63); AST 18 U/L (15-37); Albumin 4.1 g/dL (3.4-5.0); Alkaline Phosphatase 61 U/L (46-116); Anion Gap 10.5 mmol/L (3-11); BUN 24 mg/dL (7-18); Bilirubin, Total 0.6 mg/dL (0.2-1.0); CO2 25.5 mmol/L (21.0-32.0); CREATININE 1.4 mg/dL (0.70-1.30); Calcium 8.8 mg/dL (8.5-10.1); Chloride 105 mmol/L (98-107); Estimated GFR 48.76 (mL/min/1.73m2); Glucose 104 mg/dL (74-106); Sodium 141 mmol/L (136-145); T4 6.3 ug/mL (4.7-13.3); TSH 2.57 uIU/mL (0.36-3.74); Total Protein 8.2 g/dL (6.4-8.2)
[2021-10-28 10:07] LABS: Platelet Count 86 10^3/uL (130-400)
== END 2021-11-16 23:59 | disposition home or self-care (01) ==
LOC: INF 01:46
PROVIDERS: PCP Family Medicine; Visit Provider Internal Medicine Hematology & Oncology
DX: C81.12 Nodular sclerosis Hodgkin lymphoma, intrathoracic lymph nodes (principal); E06.4 Drug-induced thyroiditis; Z45.2 Encounter for adjustment and management of vascular access device
CPT/HCPCS: 36591; 80053; 85652; 84436; 84443; 85025

== ENCOUNTER 2021-12-09 03:08 | Outpatient (RCR) | payer MEDICARE, OTHER, SELFPAY ==
[2021-12-09] MEDS: Normal Saline Flush 10 ML SYR IVP (08:33)
[2021-12-09 08:43] LABS: Abs Immature Grans 0.05 10^3/uL (0.0-0.06); Absolute Basophil Count 0.03 10^3/uL (0.0-0.2); Absolute Eosinophil Count 0.09 10^3/uL (0.0-0.7); Absolute Lymphocyte Count 1.46 10^3/uL (1.2-3.4); Absolute Monocyte Count 1.17 10^3/uL (0.1-0.8); Basophils % 0.5; Eosinophils % 1.6; HCT 37.9 % (40.0-50.0); Immature Grans % 0.9; Lymphocytes % 25.2; MCH 32.3 pg (27.0-33.0); MCHC 34.3 % (32.0-36.0); MCV 94 fL (80-95); MPV 10.5 fL (8.0-11.0); Monocytes % 20.2; Neutrophils % 51.6; Platelet Count 145 10^3/uL (130-400); RBC 4.03 10^6/uL (4.36-5.78); RDW 13.4 % (11.8-14.1); RDW-SD 46.8 fL
[2021-12-09 09:00] LABS: ESR 29 mm/hr (0-20)
[2021-12-09 09:17] LABS: ALT 9 U/L (16-63); AST 18 U/L (15-37); Alkaline Phosphatase 65 U/L (46-116); Anion Gap 8.9 mmol/L (3-11); BUN 30 mg/dL (7-18); Bilirubin, Total 0.6 mg/dL (0.2-1.0); CO2 28.1 mmol/L (21.0-32.0); CREATININE 1.2 mg/dL (0.70-1.30); Calcium 9.2 mg/dL (8.5-10.1); Chloride 102 mmol/L (98-107); Estimated GFR 58.26 (mL/min/1.73m2); Glucose 102 mg/dL (74-106); Potassium 4.3 mmol/L (3.5-5.1); Sodium 139 mmol/L (136-145); T4 8.3 ug/mL (4.7-13.3); TSH 2.99 uIU/mL (0.36-3.74); Total Protein 8.7 g/dL (6.4-8.2)
== END 2021-12-16 23:59 | disposition home or self-care (01) ==
LOC: INF 03:08
PROVIDERS: PCP Family Medicine; Visit Provider Internal Medicine Hematology & Oncology
DX: C81.12 Nodular sclerosis Hodgkin lymphoma, intrathoracic lymph nodes (principal); E06.4 Drug-induced thyroiditis; Z45.2 Encounter for adjustment and management of vascular access device
CPT/HCPCS: 36591; 80053; 85652; 84436; 84443; 85025

== ENCOUNTER 2022-01-20 02:44 | Outpatient (RCR) | payer MEDICARE, OTHER, SELFPAY ==
[2022-01-20] MEDS: Normal Saline Flush 10 ML SYR IVP (08:27)
[2022-01-20 08:55] LABS: Absolute Basophil Count 0.03 10^3/uL (0.0-0.2); Absolute Eosinophil Count 0.15 10^3/uL (0.0-0.7); Absolute Lymphocyte Count 1.74 10^3/uL (1.2-3.4); Absolute Monocyte Count 0.93 10^3/uL (0.1-0.8); Absolute Neutrophil Count 2.46 10^3/uL (1.2-6.7); Basophils % 0.6; Eosinophils % 2.8; HCT 39.9 % (40.0-50.0); HGB 13.4 g/dL (13.5-17.5); Immature Grans % 1.8; Lymphocytes % 32.2; MCH 32.1 pg (27.0-33.0); MCHC 33.6 % (32.0-36.0); MCV 96 fL (80-95); Monocytes % 17.2; Neutrophils % 45.4; Platelet Count 112 10^3/uL (130-400); RBC 4.18 10^6/uL (4.36-5.78); RDW 13.2 % (11.8-14.1); RDW-SD 46.6 fL; WBC 5.41 10^3/uL (4.4-10.8)
[2022-01-20 08:58] LABS: ESR 25 mm/hr (0-20)
[2022-01-20 09:15] LABS: ALT 9 U/L (16-63); AST 18 U/L (15-37); Albumin 4.1 g/dL (3.4-5.0); Alkaline Phosphatase 54 U/L (46-116); Anion Gap 9.8 mmol/L (3-11); BUN 30 mg/dL (7-18); Bilirubin, Total 0.6 mg/dL (0.2-1.0); CO2 27.2 mmol/L (21.0-32.0); CREATININE 1.4 mg/dL (0.70-1.30); Calcium 9.1 mg/dL (8.5-10.1); Chloride 104 mmol/L (98-107); Estimated GFR 48.76 (mL/min/1.73m2); Glucose 97 mg/dL (74-106); Potassium 4.3 mmol/L (3.5-5.1); Sodium 141 mmol/L (136-145); T4 8.6 ug/mL (4.7-13.3); TSH 3.14 uIU/mL (0.36-3.74); Total Protein 8.7 g/dL (6.4-8.2)
== END 2022-02-16 23:59 | disposition home or self-care (01) ==
LOC: INF 02:44
PROVIDERS: PCP Family Medicine; Visit Provider Internal Medicine Hematology & Oncology
DX: C81.12 Nodular sclerosis Hodgkin lymphoma, intrathoracic lymph nodes (principal); E06.4 Drug-induced thyroiditis; Z45.2 Encounter for adjustment and management of vascular access device
CPT/HCPCS: 36591; 80053; 85652; 84436; 84443; 85025

== ENCOUNTER 2022-03-03 03:24 | Outpatient (RCR) | payer MEDICARE, OTHER, SELFPAY ==
[2022-03-03 08:33] LABS: Abs Immature Grans 0.07 10^3/uL (0.0-0.06); Absolute Basophil Count 0.03 10^3/uL (0.0-0.2); Absolute Eosinophil Count 0.14 10^3/uL (0.0-0.7); Absolute Lymphocyte Count 1.74 10^3/uL (1.2-3.4); Absolute Monocyte Count 1.17 10^3/uL (0.1-0.8); Absolute Neutrophil Count 2.85 10^3/uL (1.2-6.7); Basophils % 0.5; Eosinophils % 2.3; HCT 38.9 % (40.0-50.0); HGB 13.5 g/dL (13.5-17.5); Immature Grans % 1.2; MCH 32.8 pg (27.0-33.0); MCHC 34.7 % (32.0-36.0); MCV 94 fL (80-95); MPV 9.9 fL (8.0-11.0); Monocytes % 19.5; Neutrophils % 47.5; Platelet Count 117 10^3/uL (130-400); RBC 4.12 10^6/uL (4.36-5.78); RDW 12.6 % (11.8-14.1); RDW-SD 43.4 fL
[2022-03-03 08:34] LABS: ESR 18 mm/hr (0-20)
[2022-03-03] MEDS: Normal Saline Flush 10 ML SYR IVP (09:00)
[2022-03-03 09:07] LABS: ALT 9 U/L (16-63); AST 15 U/L (15-37); Albumin 3.9 g/dL (3.4-5.0); Alkaline Phosphatase 68 U/L (46-116); Anion Gap 7.2 mmol/L (3-11); BUN 30 mg/dL (7-18); Bilirubin, Total 0.5 mg/dL (0.2-1.0); CO2 28.8 mmol/L (21.0-32.0); CREATININE 1.5 mg/dL (0.70-1.30); Calcium 9.2 mg/dL (8.5-10.1); Chloride 104 mmol/L (98-107); Estimated GFR 46.48 (mL/min/1.73m2); Glucose 131 mg/dL (74-106); Potassium 3.6 mmol/L (3.5-5.1); Sodium 140 mmol/L (136-145); TSH 2.36 uIU/mL (0.36-3.74); Total Protein 8.5 g/dL (6.4-8.2)
[2022-03-03 09:18] LABS: T4 8.9 ug/mL (4.7-13.3)
== END 2022-03-18 23:59 | disposition home or self-care (01) ==
LOC: INF 03:24
PROVIDERS: PCP Family Medicine; Visit Provider Internal Medicine Hematology & Oncology
DX: C81.12 Nodular sclerosis Hodgkin lymphoma, intrathoracic lymph nodes (principal); E06.4 Drug-induced thyroiditis; Z45.2 Encounter for adjustment and management of vascular access device
CPT/HCPCS: 36591; 80053; 85652; 84436; 84443; 85025

== ENCOUNTER 2022-04-21 08:22 | Outpatient (RCR) | payer MEDICARE, OTHER, SELFPAY ==
[2022-04-21] MEDS: Normal Saline Flush 10 ML SYR IVP (08:56)
[2022-04-21 09:00] LABS: Abs Immature Grans 0.06 10^3/uL (0.0-0.06); Absolute Basophil Count 0.03 10^3/uL (0.0-0.2); Absolute Eosinophil Count 0.09 10^3/uL (0.0-0.7); Absolute Lymphocyte Count 1.88 10^3/uL (1.2-3.4); Absolute Monocyte Count 1.01 10^3/uL (0.1-0.8); Absolute Neutrophil Count 2.97 10^3/uL (1.2-6.7); Basophils % 0.5; Eosinophils % 1.5; HCT 39.7 % (40.0-50.0); HGB 13.3 g/dL (13.5-17.5); Lymphocytes % 31.1; MCH 31.8 pg (27.0-33.0); MCHC 33.5 % (32.0-36.0); MCV 95 fL (80-95); Monocytes % 16.7; Neutrophils % 49.2; Platelet Count 119 10^3/uL (130-400); RBC 4.18 10^6/uL (4.36-5.78); RDW 12.3 % (11.8-14.1); RDW-SD 43.3 fL; WBC 6.04 10^3/uL (4.4-10.8)
[2022-04-21 09:02] LABS: ESR 26 mm/hr (0-20)
[2022-04-21 09:23] LABS: ALT 12 U/L (16-63); AST 24 U/L (15-37); Albumin 4.3 g/dL (3.4-5.0); Alkaline Phosphatase 62 U/L (46-116); Anion Gap 7.9 mmol/L (3-11); BUN 27 mg/dL (7-18); Bilirubin, Total 0.6 mg/dL (0.2-1.0); CO2 28.1 mmol/L (21.0-32.0); CREATININE 1.4 mg/dL (0.70-1.30); Calcium 9.3 mg/dL (8.5-10.1); Chloride 104 mmol/L (98-107); Estimated GFR 50.49 (mL/min/1.73m2); Glucose 97 mg/dL (74-106); Potassium 4.1 mmol/L (3.5-5.1); Sodium 140 mmol/L (136-145); TSH 3.69 uIU/mL (0.36-3.74); Total Protein 8.8 g/dL (6.4-8.2)
== END 2022-05-18 23:59 | disposition home or self-care (01) ==
LOC: INF 08:22
PROVIDERS: PCP Family Medicine; Visit Provider Internal Medicine Hematology & Oncology
DX: C81.12 Nodular sclerosis Hodgkin lymphoma, intrathoracic lymph nodes (principal); E06.4 Drug-induced thyroiditis; Z45.2 Encounter for adjustment and management of vascular access device
CPT/HCPCS: 36591; 80053; 85652; 84436; 84443; 85025

== ENCOUNTER 2022-06-02 02:21 | Outpatient (RCR) | payer MEDICARE, OTHER, SELFPAY ==
[2022-06-02] MEDS: Normal Saline Flush 10 ML SYR IVP (08:27)
[2022-06-02 08:34] LABS: Abs Immature Grans 0.09 10^3/uL (0.0-0.06); Absolute Basophil Count 0.02 10^3/uL (0.0-0.2); Absolute Eosinophil Count 0.11 10^3/uL (0.0-0.7); Absolute Lymphocyte Count 0.83 10^3/uL (1.2-3.4); Absolute Monocyte Count 1.08 10^3/uL (0.1-0.8); Absolute Neutrophil Count 3.71 10^3/uL (1.2-6.7); Basophils % 0.3; Eosinophils % 1.9; HCT 40.1 % (40.0-50.0); HGB 13.4 g/dL (13.5-17.5); Immature Grans % 1.5; Lymphocytes % 14.2; MCH 31.6 pg (27.0-33.0); MCHC 33.4 % (32.0-36.0); MCV 95 fL (80-95); MPV 9.8 fL (8.0-11.0); Monocytes % 18.5; Neutrophils % 63.6; Platelet Count 129 10^3/uL (130-400); RBC 4.24 10^6/uL (4.36-5.78); RDW 12.7 % (11.8-14.1); RDW-SD 43.8 fL; WBC 5.84 10^3/uL (4.4-10.8)
[2022-06-02 08:41] LABS: ESR 29 mm/hr (0-20)
[2022-06-02 08:56] LABS: ALT 12 U/L (16-63); AST 21 U/L (15-37); Albumin 4.2 g/dL (3.4-5.0); Alkaline Phosphatase 70 U/L (46-116); Anion Gap 9.8 mmol/L (3-11); BUN 31 mg/dL (7-18); Bilirubin, Total 0.7 mg/dL (0.2-1.0); CO2 27.2 mmol/L (21.0-32.0); CREATININE 1.6 mg/dL (0.70-1.30); Calcium 9.3 mg/dL (8.5-10.1); Chloride 102 mmol/L (98-107); Estimated GFR 43.02 (mL/min/1.73m2); Glucose 114 mg/dL (74-106); Potassium 4.2 mmol/L (3.5-5.1); Sodium 139 mmol/L (136-145); T4 8.5 ug/dL (4.7-13.3); TSH 2.36 uIU/mL (0.36-3.74); Total Protein 8.6 g/dL (6.4-8.2)
== END 2022-06-18 23:59 | disposition home or self-care (01) ==
LOC: INF 02:21
PROVIDERS: PCP Family Medicine; Visit Provider Internal Medicine Hematology & Oncology
DX: C81.12 Nodular sclerosis Hodgkin lymphoma, intrathoracic lymph nodes (principal); Z45.2 Encounter for adjustment and management of vascular access device; E06.4 Drug-induced thyroiditis
CPT/HCPCS: 36591; 80053; 85652; 84436; 84443; 85025

== ENCOUNTER 2022-07-14 02:11 | Outpatient (RCR) | payer MEDICARE, OTHER, SELFPAY ==
[2022-07-14] MEDS: Normal Saline Flush 10 ML SYR IVP (08:27)
[2022-07-14 08:47] LABS: Abs Immature Grans 0.07 10^3/uL (0.0-0.06); Absolute Basophil Count 0.03 10^3/uL (0.0-0.2); Absolute Eosinophil Count 0.12 10^3/uL (0.0-0.7); Absolute Lymphocyte Count 1.44 10^3/uL (1.2-3.4); Absolute Monocyte Count 1.43 10^3/uL (0.1-0.8); Absolute Neutrophil Count 2.71 10^3/uL (1.2-6.7); Basophils % 0.5; Eosinophils % 2.1; HCT 37.3 % (40.0-50.0); HGB 12.9 g/dL (13.5-17.5); Immature Grans % 1.2; Lymphocytes % 24.8; MCH 32.2 pg (27.0-33.0); MCHC 34.6 % (32.0-36.0); MCV 93 fL (80-95); MPV 10.1 fL (8.0-11.0); Monocytes % 24.7; Neutrophils % 46.7; Platelet Count 139 10^3/uL (130-400); RBC 4.01 10^6/uL (4.36-5.78); RDW 13.1 % (11.8-14.1); RDW-SD 44.6 fL
[2022-07-14 08:55] LABS: ESR 26 mm/hr (0-20)
[2022-07-14 09:07] LABS: ALT 14 U/L (16-63); AST 31 U/L (15-37); Albumin 4.1 g/dL (3.4-5.0); Alkaline Phosphatase 65 U/L (46-116); Anion Gap 8.7 mmol/L (3-11); BUN 24 mg/dL (7-18); Bilirubin, Total 0.4 mg/dL (0.2-1.0); CO2 26.3 mmol/L (21.0-32.0); CREATININE 1.4 mg/dL (0.70-1.30); Calcium 9.3 mg/dL (8.5-10.1); Chloride 105 mmol/L (98-107); Estimated GFR 50.49 (mL/min/1.73m2); Glucose 108 mg/dL (74-106); Potassium 3.8 mmol/L (3.5-5.1); Sodium 140 mmol/L (136-145); T4 9.8 ug/dL (4.7-13.3); Total Protein 8.2 g/dL (6.4-8.2)
== END 2022-07-19 23:59 | disposition home or self-care (01) ==
LOC: INF 02:11
PROVIDERS: PCP Family Medicine; Visit Provider Internal Medicine Hematology & Oncology
DX: C81.12 Nodular sclerosis Hodgkin lymphoma, intrathoracic lymph nodes (principal); Z45.2 Encounter for adjustment and management of vascular access device
CPT/HCPCS: 36591; 80053; 85652; 84436; 84443; 85025

== ENCOUNTER 2022-09-14 01:46 | Outpatient (RCR) | payer MEDICARE, OTHER, SELFPAY ==
[2022-08-25] MEDS: Normal Saline Flush 10 ML SYR IVP (09:06)
[2022-08-25 09:17] LABS: Abs Immature Grans 0.07 10^3/uL (0.0-0.06); Absolute Basophil Count 0.03 10^3/uL (0.0-0.2); Absolute Eosinophil Count 0.12 10^3/uL (0.0-0.7); Absolute Lymphocyte Count 1.65 10^3/uL (1.2-3.4); Absolute Neutrophil Count 2.41 10^3/uL (1.2-6.7); Basophils % 0.6; Eosinophils % 2.3; HCT 36.3 % (40.0-50.0); HGB 12.6 g/dL (13.5-17.5); Immature Grans % 1.3; Lymphocytes % 31.3; MCH 32.1 pg (27.0-33.0); MCHC 34.7 % (32.0-36.0); MCV 93 fL (80-95); MPV 9.7 fL (8.0-11.0); Monocytes % 18.9; Neutrophils % 45.6; Platelet Count 135 10^3/uL (130-400); RBC 3.92 10^6/uL (4.36-5.78); RDW 13.2 % (11.8-14.1); RDW-SD 43.7 fL; WBC 5.28 10^3/uL (4.4-10.8)
[2022-08-25 09:19] LABS: ESR 24 mm/hr (0-20)
[2022-08-25 09:40] LABS: ALT 13 U/L (16-63); AST 18 U/L (15-37); Albumin 3.8 g/dL (3.4-5.0); Alkaline Phosphatase 60 U/L (46-116); Anion Gap 9.1 mmol/L (3-11); BUN 17 mg/dL (7-18); Bilirubin, Total 0.4 mg/dL (0.2-1.0); CO2 28.9 mmol/L (21.0-32.0); CREATININE 1.4 mg/dL (0.70-1.30); Calcium 8.8 mg/dL (8.5-10.1); Chloride 106 mmol/L (98-107); Estimated GFR 50.49 (mL/min/1.73m2); Glucose 154 mg/dL (74-106); Potassium 3.4 mmol/L (3.5-5.1); Sodium 144 mmol/L (136-145); Total Protein 7.8 g/dL (6.4-8.2)
[2022-08-25 09:55] LABS: T4 8.6 ug/dL (4.7-13.3)
[2022-09-14] MEDS: Normal Saline Flush 10 ML SYR IVP (09:19)
[2022-09-14] MEDS: Heparin 500 UNITS/5 ML SYRINGE IV (09:20)
[2022-09-14 09:46] LABS: Abs Immature Grans 0.89 10^3/uL (0.0-0.06); HGB 10.9 g/dL (13.5-17.5); MCH 30.8 pg (27.0-33.0); MCHC 34.1 % (32.0-36.0); MCV 90 fL (80-95); Platelet Count 126 10^3/uL (130-400); RBC 3.54 10^6/uL (4.36-5.78); RDW 12.6 % (11.8-14.1); WBC 17.81 10^3/uL (4.4-10.8)
[2022-09-14 09:59] LABS: ALT 15 U/L (16-63); AST 24 U/L (15-37); Albumin 3.3 g/dL (3.4-5.0); Alkaline Phosphatase 106 U/L (46-116); Anion Gap 12.7 mmol/L (3-11); BUN 16 mg/dL (7-18); Bilirubin, Total 0.5 mg/dL (0.2-1.0); CO2 28.3 mmol/L (21.0-32.0); CREATININE 1.4 mg/dL (0.70-1.30); Calcium 8.5 mg/dL (8.5-10.1); Chloride 103 mmol/L (98-107); Estimated GFR 50.49 (mL/min/1.73m2); Glucose 101 mg/dL (74-106); Sodium 144 mmol/L (136-145); Total Protein 7.6 g/dL (6.4-8.2)
[2022-09-14 10:01] LABS: Absolute Lymphocyte Count 1.25 10^3/uL (1.2-3.4); Absolute Monocyte Count 1.25 10^3/uL (0.1-0.8); Atypical Lymphocytes % 4; Bands % 1
[2022-09-14 10:02] LABS: Diff Comment Manual Differential; Metamyelocytes % 3; Myelocytes % 1; RBC Morphology Normal
[2022-09-14 10:11] LABS: Potassium 2.9 mmol/L (3.5-5.1)
== END 2022-09-16 23:59 | disposition home or self-care (01) ==
LOC: INF 01:46
PROVIDERS: PCP Family Medicine; Visit Provider Internal Medicine Hematology & Oncology
DX: C81.12 Nodular sclerosis Hodgkin lymphoma, intrathoracic lymph nodes (principal); Z45.2 Encounter for adjustment and management of vascular access device; Z79.899 Other long term (current) drug therapy
CPT/HCPCS: 36591; 80053; 85652; 84436; 84443; 85025

== ENCOUNTER 2022-10-03 11:00 | Inpatient (IN) | payer OTHER, SELFPAY ==
[2022-10-03] VITALS (20 sets, daily range): BP systolic 100–126; BP diastolic 45–71; PULSE 64–93; RESP 17–35; TEMP 36.4–36.5; O2SAT 92–96
--- NOTE | 2022-10-03 11:00 | RT.EKG_ITS ---
APPROVED REPORT Exam: Resting ECG Reason for Exam: weakness Patient Location: E HR:84 bpm ECG Measurements Heart Rate 84 AXIS OK [id number] P [id number] QRSd 104 QRS -43 QT 413 T 128 QTc 484 Conclusion Atrial flutter...A-rate 277 Inferior infarct, old...Q >35mS, II III aVF Nonspecific T abnormalities, lateral leads...T <-0.10mV, I aVL V5 V6 afib, let axis, PVC, t wave inversions V1 V2
[2022-10-03] MEDS: Lactated Ringers 1,000 ML 500 ML IV (11:25)
[2022-10-03 11:26] LABS: Lactate 1.6 mmol/L (0.6-1.4)
[2022-10-03 11:27] LABS: Abs Immature Grans 0.27 10^3/uL (0.0-0.06); Absolute Monocyte Count 2.43 10^3/uL (0.1-0.8); Basophils % 0.3; Eosinophils % 0.5; HCT 24.1 % (40.0-50.0); HGB 8.4 g/dL (13.5-17.5); Immature Grans % 1.8; Lymphocytes % 1.6; MCH 31.6 pg (27.0-33.0); MCHC 34.9 % (32.0-36.0); MCV 91 fL (80-95); Monocytes % 16.6; Neutrophils % 79.2; RBC 2.66 10^6/uL (4.36-5.78); RDW 13.6 % (11.8-14.1); RDW-SD 43.7 fL; WBC 14.66 10^3/uL (4.4-10.8)
--- NOTE | 2022-10-03 11:27 | W.ED.GENAD ---
Discharge Plan Discharge Details Chief Complaint: GenMedical Admit Date/Time: 10/03/22 17:10 Admit Provider: Peyman Godfrey Attending Provider: Peyman Godfrey Primary Care Provider: Moo Mora ED Provider: Elsa Davalos Discharge Data Discharge Date/Time-TO BE ENTERED AT DEPARTURE: 10/03/22 18:12 Medical Decision Making <LUZ Mitchell - Last Filed: 10/04/22 04:03> Patient is a pleasant 82-year-old presenting today with chief complaint of weakness. I was notified about patient's arrival prior to him coming in by his oncology team. Patient currently being treated for Hodgkin's lymphoma at [facility]. Received chemotherapy, brentuximab and Bendamustine on 09/22/2022 and 09/23/2022. He states that he has had increased weakness and fatigue. While he feels like he runs out of breath more readily than typical, he is denying any shortness of breath. Sounds to be more fatigue driven. He denies any chest pain. Past medical history significant for hypertension, hypercholesterolemia, CABG. Patient denies any recent medication changes although we do not have his past medical history of current medications as typically receives his care at [facility]. We will request these records. His oncology team did let me know that he did not tolerate the first cycle of his chemotherapy well either and that [place] have [place] stay [place] [facility] [place]. Patient does not want to have this happen again and adamantly refuses to be transferred to a [place] [facility] [place]. He does live alone, brother is nearby. He does state that it feels similar to that but not as extreme as at that time he was also suffering from stool incontinence. His chemotherapy regimen has been changed since that initial intolerance. On exam, patient appears fatigued but otherwise nontoxic. He is slightly tachycardic with a heart rate of 93. He does appear dry with dry mucous membranes. His cardio vascular exam is significant for a systolic murmur best heard over the aortic region which patient reports is chronic. No lower extremity edema. 2+ distal pulses. His lungs are clear in all neal. Abdomen is benign. Concern for dehydration as he has had decreased appetite since his most recent cycle. He is denying any pain or acute change otherwise. With his cardiac history, also considered ACS although I do find this less likely. Also considered pulmonary embolism. He does state that he had history of DVT, is not actively anticoagulated. Will screen with D-dimer. Lab called, concerned about elevated troponin of 68. He has no CP, this may be a type II ECG reviewed, concerning for a fib, no ST elevation. Pacer interigated, appears to be functioning well, no recent significant events recorded. We will consult with oncology team. Consulted with Dr. Johns, she advised low Hgb, low platelets associated with chemo. He got neulasta which would drive the leukocytosis. Advised that the fatigue, weakness, decrease PO intake likely associated with chemotherapy. SHe advised that with the platelets, we could still continue with anticoagulation based on CHADS VASC2 with Lovenox or Eliquis. We will continue with trending the troponin. He has not had any bleeding that he is aware of. Advised anticoagulation can be full dose with the platelets D-dimer elevated, will obtain CTA. Contacted by radiologist, concerning for large mass, concerning for cancerous mass, that is within the mediastinum right lung, obstructing right bronchus. CHEST: PULMONARY ARTERIES: There are no intraluminal filling defects to suggest acute pulmonary emboli. LUNGS: There is a malignant-appearing spiculated mass in the right hilar-suprahilar region.? This extends around the nonoccluded azygos vein into the mediastinum and outward into the lung tissue..? The right upper lobe bronchus is occluded by this mass.? There is also a moderate-large size ipsilateral right pleural effusion evident.? There is partial collapse of the basal segments of the right lower lobe related to this pleural effusion.? There are no findings in the opposite-left lung.? No adenoma in the subcarinal region.? No adenopathy in the anterior mediastinal fat. MEDIASTINUM: As above CARDIAC: Heart size upper normal.? Sternotomy wires.? Cardiac pacemaker wires.? No pericardial effusion.Caliber of the thoracic aorta is within upper normal limits.? There is no significant shift of the interventricular septum. PARTIALLY VISUALIZED UPPERMOST ABDOMEN: No obvious findings OSSEOUS: No lytic osseous lesions.? No acute fractures.Wedge compression of a mid vertebra appears to be possibly developmental. IMPRESSION: 1. Main finding here is a prominent malignant-appearing mass in the right suprahilar region involving the right upper lobe and mediastinum and surrounding the nonoccluded azygos vein arch..There is an ipsilateral moderate-large pleural effusion. 2. Cardiac pacemaker wires.? Sternotomy wires.? Heart size upper normal.? No pericardial effusion. Troponin is stable at 65. Patient reports feeling improved with the fluids. He is drinking/eating, asymptomatic. He was unaware of the mass in his lung. Consulted with oncology again, they advised that this is his Hodgkin lymphoma. They advised that this is not new for the patient. They were able to compare the images, aedvised that he previously had pleural effusion and right sided mass which does not appear different compared to his baseline. She advied this would not cause any of his symptoms. She did advise that patient should be observed overnight with the elevated troponin and significant weakness at home. Page hospitalist, awaiting to hear back. Care transitioned to Elsa Davalos PA-C at the end of my shift. Case was discussed with Dr. Godfrey who will accept patient to his care for observation, he is full CODE STATUS after confirming with patient <LUZ Fontaine - Last Filed: 10/03/22 23:28> Patient is a pleasant 82-year-old presenting today with chief complaint of weakness. I was notified about patient's arrival prior to him coming in by his oncology team. Patient currently being treated for Hodgkin's lymphoma at [facility]. Received chemotherapy, brentuximab and Bendamustine on 09/22/2022 and 09/23/2022. He states that he has had increased weakness and fatigue. While he feels like he runs out of breath more readily than typical, he is denying any shortness of breath. Sounds to be more fatigue driven. He denies any chest pain. Past medical history significant for hypertension, hypercholesterolemia, CABG. Patient denies any recent medication changes although we do not have his past medical history of current medications as typically receives his care at [facility]. We will request these records. His oncology team did let me know that he did not tolerate the first cycle of his chemotherapy well either and that he did have [place] stay [place]. Patient does not want to have this happen again and adamantly refuses to be transferred to a [place]. He does live alone, brother is nearby. He does state that it feels similar to that but not as extreme as at that time he was also suffering from stool incontinence. His chemotherapy regimen has been changed since that initial intolerance. On exam, patient appears fatigued but otherwise nontoxic. He is slightly tachycardic with a heart rate of 93. He does appear dry with dry mucous membranes. His cardio vascular exam is significant for a systolic murmur best heard over the aortic region which patient reports is chronic. No lower extremity edema. 2+ distal pulses. His lungs are clear in all neal. Abdomen is benign. Concern for dehydration as he has had decreased appetite since his most recent cycle. He is denying any pain or acute change otherwise. With his cardiac history, also considered ACS although I do find this less likely. Also considered pulmonary embolism. He does state that he had history of DVT, is not actively anticoagulated. Will screen with D-dimer. Lab called, concerned about elevated troponin of 68. He has no CP, this may be a type II ECG reviewed, concerning for a fib, no ST elevation. We will consult with oncology team. Consulted with Dr. Johns, she advised low Hgb, low platelets associated with chemo. He got neulasta which would drive the leukocytosis. Advised that the fatigue, weakness, decrease PO intake likely associated with chemotherapy. SHe advised that with the platelets, we could still continue with anticoagulation based on CHADS VASC2 with Lovenox or Eliquis. We will continue with trending the troponin. He has not had any bleeding that he is aware of. Advised anticoagulation can be full dose with the platelets D-dimer elevated, will obtain CTA. Contacted by radiologist, concerning for large mass, concerning for cancerous mass, that is within the mediastinum right lung, obstructing right bronchus. CHEST: PULMONARY ARTERIES: There are no intraluminal filling defects to suggest acute pulmonary emboli. LUNGS: There is a malignant-appearing spiculated mass in the right hilar-suprahilar region.? This extends around the nonoccluded azygos vein into the mediastinum and outward into the lung tissue..? The right upper lobe bronchus is occluded by this mass.? There is also a moderate-large size ipsilateral right pleural effusion evident.? There is partial collapse of the basal segments of the right lower lobe related to this pleural effusion.? There are no findings in the opposite-left lung.? No adenoma in the subcarinal region.? No adenopathy in the anterior mediastinal fat. MEDIASTINUM: As above CARDIAC: Heart size upper normal.? Sternotomy wires.? Cardiac pacemaker wires.? No pericardial effusion.Caliber of the thoracic aorta is within upper normal limits.? There is no significant shift of the interventricular septum. PARTIALLY VISUALIZED UPPERMOST ABDOMEN: No obvious findings OSSEOUS: No lytic osseous lesions.? No acute fractures.Wedge compression of a mid vertebra appears to be possibly developmental. IMPRESSION: 1. Main finding here is a prominent malignant-appearing mass in the right suprahilar region involving the right upper lobe and mediastinum and surrounding the nonoccluded azygos vein arch..There is an ipsilateral moderate-large pleural effusion. 2. Cardiac pacemaker wires.? Sternotomy wires.? Heart size upper normal.? No pericardial effusion. Troponin is stable at 65. Patient reports feeling improved with the fluids. He is drinking/eating, asymptomatic. He was unaware of the mass in his lung. Consulted with oncology again, they advised that this is his Hodgkin lymphoma. They advised that this is not new for the patient. They were able to compare the images, aedvised that he previously had pleural effusion and right sided mass which does not appear different compared to his baseline. She advied this would not cause any of his symptoms. She did advise that patient should be observed overnight with the elevated troponin and significant weakness at home. Daija hospitalist, awaiting to hear back. Care transitioned to Elsa Dvaalos PA-C. Case was discussed with Dr. Godfrey who will accept patient to his care for observation, he is full CODE STATUS after confirming with patient HPI <LUZ Mitchell - Last Filed: 10/04/22 04:03> General Date/Time Provider Initiated Documentation: 10/03/22 11:08. Limitations to Documentation: no limitations. Information obtained by: patient, RN notes reviewed and old records reviewed. History of Present Illness 82 year old M presents to the emergency department with the chief complaint of weakness, difficulty with ADLs at home after recent chemo treatment, described as moderate and similar to prior episodes (had similar issue after previous chemo treatment, was hospitalized at ), Quality is described as other (denies any pain, just fatigued, decreased appetite and generally weak feeling), Patient started experiencing this day(s) and it has been constant. No relieving factors improve symptom(s), Medication worsens symptoms (chemo) . Patient notes loss of appetite and malaise; denies chest pain, cough, fever/chills, headaches, nausea/vomiting (denies N/V, feels that appetite is down and food does not taste good), rash and shortness of breath. Patient did receive the following treatments prior to arrival, none Related Data Home Medications Medication Instructions Recorded Confirmed acetaminophen 500 mg tablet 1,000 mg PO Q6H PRN 10/03/22 10/03/22 aspirin 81 mg tablet,delayed 81 mg PO DAILY 10/03/22 10/03/22 release gabapentin 100 mg tablet 100 mg PO DAILY 10/03/22 10/03/22 loratadine 10 mg tablet 10 mg PO QDAY 10/03/22 10/03/22 metoprolol tartrate 25 mg tablet 12.5 mg PO BID 10/03/22 10/03/22 multivitamin 1 cap PO DAILY 10/03/22 10/03/22 niacinamide 500 mg tablet 500 mg PO BID 10/03/22 10/03/22 prochlorperazine maleate 10 mg 10 mg PO Q6H PRN 10/03/22 10/03/22 tablet rosuvastatin 40 mg tablet 40 mg PO DAILY 10/03/22 10/03/22 Allergies Allergy/AdvReac Type Severity Reaction Status Date / Time allopurinol AdvReac Intermediate Skin Rash Unverified 10/03/22 11:46 cephalexin [From Keflex] AdvReac Intermediate Skin Rash Unverified 10/03/22 11:46 General Stated Complaint: GenMedical CHAD: 3 Review of Systems <LUZ Mitchell - Last Filed: 10/04/22 04:03> Constitutional Constitutional: Reports as per HPI, Denies chills, Reports fatigue, Denies fever(s), Denies headache(s), Reports lethargy, Reports malaise and Reports poor appetite Eyes Eyes: Denies change in vision ENT Ears, Nose, Mouth, and Throat: Denies dizziness and Denies headache(s) Cardiovascular Cardiovascular: Reports as per HPI, Denies chest pain at rest, Denies chest pain with activity, Reports irregular heart rhythm (hx a fib with pacer), Denies claudication, Denies leg edema, Denies lightheadedness, Denies dyspnea (feels more fatigued and winded easier but denies SOB) and Denies dyspnea on exertion Respiratory Respiratory: Reports as per HPI, Denies chest congestion, Denies cough, Denies pain on inspiration, Denies pain with cough, Denies dyspnea (feels more fatigued and winded easier but denies SOB) and Denies dyspnea on exertion Gastrointestinal Gastrointestinal: Reports as per HPI, Denies abdominal pain, Reports change in bowel habits (one loose stool today), Denies nausea and Denies vomiting Genitourinary Genitourinary: Denies system reviewed and no additional complaints, except as documented (denies change in urinary habits) Musculoskeletal Musculoskeletal: Reports as per HPI and Denies back pain Integumentary/Breasts Skin/Breast: Reports as per HPI and Denies rash Neurologic Neurologic: Reports as per HPI, Denies dizziness and Denies headache(s) Endocrine Endocrine: Reports fatigue PFSH <LUZ Mitchell - Last Filed: 10/04/22 04:03> All Active Problems (Updated 10/03/22 @ 19:33 by Peyman Godfrey MD) Atrial fibrillation (Chronic) DVT prophylaxis (Acute) Leukocytosis, unspecified (Acute) Port-A-Cath in place (Acute) BPH (benign prostatic hyperplasia) (Chronic) Essential hypertension (Acute) Hypokalemia (Acute) Hypomagnesemia (Acute) Dehydration (Acute) Hodgkins lymphoma (Chronic) Medical History (Updated 10/03/22 @ 19:33 by Peyman Godfrey MD) Coronary atherosclerosis Surgical History (Updated 10/03/22 @ 19:21 by Peyman Godfrey MD) History of tonsillectomy Pacemaker Status post coronary artery bypass graft (~1995) Family History (Updated 10/03/22 @ 19:24 by Peyman Godfrey MD) Father , age 54 from CAD Heart disease Paternal Grandfather , in his 50's from CAD Heart disease Social History (Updated 10/03/22 @ 19:22 by Peyman Godfrey MD) Smoking/Tobacco Use Status: Current-Occasional Tobacco Type: cigarettes Years smoked: 64 Smoking risk assessment performed?: Yes Alcohol Intake: never Drug use: Never Substance use type: does not use Exam <LUZ Mitchell - Last Filed: 10/04/22 04:03> Const General: cooperative, comfortable, no acute distress, well developed and ill appearing chronically (appears fatigued) Nutritional Appearance: well nourished and overweight Orientation: alert, awake and oriented x3 HENMT Head: normal to inspection Ears: hearing grossly normal bilaterally Mouth: mucous membranes dry (appears dry) Chest Chest: normal inspection of the chest, normal palpation of entire chest wall and no crepitus Resp Effort & Inspection: normal respiratory effort, able to speak in complete sentences and no respiratory distress Auscultation: diminished lung sounds on the left in the lower lung neal, no rales, no rhonchi and no wheezes Cardio Rate: regular rate Rhythm: regular rhythm Heart Sounds: murmur systolic at the right sternal border GI Inspection: normal to inspection, no edema and non-distended Palpation: soft, no hepatosplenomegaly, not firm, no guarding, not rigid and nontender Auscultation: normal bowel sounds Back/Spine/Pelvis Back: no CVA tenderness Skin General skin exam: no rashes or lesions noted Trauma: no lacerations or abrasions Neuro General: patient alert, patient awake and patient oriented x3 Cognition: normal cognition Speech: speech normal Motor: muscle tone normal throughout Extrem General: normal to inspection, capillary refill normal, no pedal edema and no calf tenderness Psych Appearance: grossly normal and well kempt Mental Status: mental status grossly normal Speech and Movement: speech and movement normal Course <LUZ Mitchell - Last Filed: 10/04/22 04:03> Vital Signs Vital signs: Vital Signs Temperature 36.4 C 10/03/22 11:03 Pulse 93 H 10/03/22 11:03 Respiratory Rate 20 10/03/22 11:03 Blood Pressure 106/60 10/03/22 11:03 Pulse Oximetry 96 10/03/22 11:03 Temperature 36.4 C 10/03/22 11:03 Temperature Source Oral 10/03/22 11:03 Pulse 93 H 10/03/22 11:03 Respiratory Rate 20 10/03/22 11:03 Respiratory Effort Short of Breath, Labored 10/03/22 11:08 Blood Pressure 106/60 10/03/22 11:03 Blood Pressure Position Sitting 10/03/22 11:03 Pulse Oximetry 96 10/03/22 11:03 Oxygen Delivery Method Room Air 10/03/22 11:03 Oxygen Flow Rate 0 10/03/22 11:03 Lab/Test Results Lab/Test Results: Laboratory Tests Range/Units 10/03/22 11:20 VBG Lactate (0.6-1.4) mmol/L 1.6 H Sign Out <LUZ Mitchell - Last Filed: 10/04/22 04:03> Sign Out Data: Sign Out Comment: Care transition to Elsa Davalos PA-C, with disposition pending. Patient here with weakness and inability to care for himself at home, slightly elevated troponin in the setting of being dehydrated and anemic while receiving chemotherapy care. Oncology recommended observation. Patient only received 1 L of fluids thus far, began hydrating orally, this was completed slowly given his cardiac history. Last updated by Marion Sanchez PA at 10/03/22 16:41
[2022-10-03 11:35] LABS: Absolute Basophil Count 0.04 10^3/uL (0.0-0.2); Absolute Eosinophil Count 0.07 10^3/uL (0.0-0.7); Absolute Lymphocyte Count 0.23 10^3/uL (1.2-3.4); Absolute Neutrophil Count 11.61 10^3/uL (1.2-6.7)
[2022-10-03 11:52] LABS: ALT 14 U/L (16-63); AST 25 U/L (15-37); Albumin 3.5 g/dL (3.4-5.0); Alkaline Phosphatase 130 U/L (46-116); Anion Gap 13.6 mmol/L (3-11); BUN 27 mg/dL (7-18); Bilirubin, Total 0.6 mg/dL (0.2-1.0); CO2 24.4 mmol/L (21.0-32.0); CREATININE 1.7 mg/dL (0.70-1.30); Chloride 105 mmol/L (98-107); Glucose 117 mg/dL (74-106); Magnesium 1.1 mg/dL (1.8-2.4); Potassium 3.2 mmol/L (3.5-5.1); Sodium 143 mmol/L (136-145); Total Protein 7.5 g/dL (6.4-8.2)
[2022-10-03 11:53] LABS: Troponin I 68 ng/L (<or=60)
[2022-10-03 12:01] LABS: Diff Comment Diff Reviewed; Platelet Count 64 10^3/uL (130-400); RBC Morphology Normal
[2022-10-03 12:18] LABS: Source Nasal/Nares
[2022-10-03 12:28] LABS: D-Dimer 4045 ng/mlFEU (<500)
--- NOTE | 2022-10-03 12:30 | DI.CT_ITS ---
Exam(s) CT CHEST PE CTA EXAM: CT CHEST PE CTA CLINICAL HISTORY: elevated d-dimer, fatigue, a fib. TECHNIQUE: Imaging Protocol: CT angiography of the chest was performed using pulmonary embolus tejas col. Multi planar reconstructions were performed. CONTRAST MATERIAL: Intravenous: Omnipaque 350 Contrast volume: 100 cc COMPARISON: CR XR CHEST 2V PA LATERAL from 10/03/2022 FINDINGS: CHEST: PULMONARY ARTERIES: There are no intraluminal filling defects to suggest acute pulmonary emboli. LUNGS: There is a malignant-appearing spiculated mass in the right hilar-suprahilar region. This ext ends around the nonoccluded azygos vein into the mediastinum and outward into the lung tissue.. The right upper lobe bronchus is occluded by this mass. There is also a moderate-large size ipsilateral right pleural effusion evident. There is partial collapse of the basal segments of the right lower l obe related to this pleural effusion. There are no findings in the opposite-left lung. No adenoma i n the subcarinal region. No adenopathy in the anterior mediastinal fat. MEDIASTINUM: As above CARDIAC: Heart size upper normal. Sternotomy wires. Cardiac pacemaker wires. No pericardial effusi on.Caliber of the thoracic aorta is within upper normal limits. There is no significant shift of the interventricular septum. PARTIALLY VISUALIZED UPPERMOST ABDOMEN: No obvious findings OSSEOUS: No lytic osseous lesions. No acute fractures.Wedge compression of a mid vertebra appears to be possibly developmental. IMPRESSION: 1. Main finding here is a prominent malignant-appearing mass in the right suprahilar region involving the right upper lobe and mediastinum and surrounding the nonoccluded azygos vein arch..There is an i psilateral moderate-large pleural effusion. 2. Cardiac pacemaker wires. Sternotomy wires. Heart size upper normal. No pericardial effusion. Discussed with ER provider RADIATION DOSE DELIVERED: 342.97mGy.cm Total DLP DATA REPOSITORY: All CT scans at this facility are submitted to the National Radiology Data Registry (NRDR) Dose Index Registry (DIR) with the [employer] ([employer]). RADIATION OPTIMIZATION: All CT scans at this facility use at least one of these dose optimization te chniques: automated exposure control; mA and/or kV adjustment per patient size (includes targeted exa ms where dose is matched to clinical indication); or iterative reconstruction.
[2022-10-03] MEDS: POTASSIUM CHLORIDE 20 MEQ, POTASSIUM CHLORIDE 10 MEQ 30 MEQ PO (12:33)
--- NOTE | 2022-10-03 12:33 | DI.RAD_ITS ---
Exam(s) XR CHEST 2V PA LATERAL EXAM: XR CHEST 2V PA LATERAL CLINICAL HISTORY: weakness, elevated troponin. TECHNIQUE: 2D digital imaging was performed. COMPARISON: No exams were available for comparison FINDINGS: 2 views: There is a bipolar left subclavian pacemaker with lead tips in right atrium and right ventricle. The re is also a right supra kv Port-A-Cath with distal tip in the mid-lower right atrium. There are sternotomy wires. Heart size upper normal mediastinum is not widened. Left lung is clear. However, there is a moderate size pleural effusion on the right side. No nodule s nor infiltrates above this level. IMPRESSION: Moderate size unilateral right pleural effusion. Left lung is clear. Sternotomy wires. Bipolar pacemaker. Port-A-Cath with distal tip in right atrium. DATA REPOSITORY: RADIATION DOSE DELIVERED:
--- NOTE | 2022-10-03 12:55 | NUR.NOTE ---
Nursing Note: Patient noted to have runs of multiple PVC's in a row while in room. Patient asymptomatic, converted to NSR spontaneously. LUZ Mahan notified.
[2022-10-03] MEDS: Magnesium Oxide 400 MG TAB 800 MG PO (13:00)
[2022-10-03 13:08] LABS: COVID-19 PCR Negative (Negative)
[2022-10-03 13:20] LABS: Bilirubin Negative (Negative); Blood Trace-intact (Negative); Clarity Clear (Clear); Glucose Negative (Negative); Ketones Negative (Negative); Leukocyte Esterase Negative (Negative); Nitrite Negative (Negative); pH 5.5 (5-8)
[2022-10-03 13:29] LABS: Bacteria Rare HPF (Negative); C & S Indicated? No; Casts Negative LPF (Negative); Crystals Negative HPF (Negative); Epithelial Cells Negative HPF (Negative); Mucus Trace (Negative); Other Cells Negative (Negative); RBC 0-2 HPF (0-2); WBC Negative HPF (0-5)
[2022-10-03] MEDS: Normal Saline - Diluent 50 ML VIAL IJ (13:52)
[2022-10-03 13:53] LABS: INR 1.1 (0.9-1.1); PTT Activated 28.3 sec (21.5-31.9); Prothrombin Time 11.2 sec (9.3-11.0)
[2022-10-03] MEDS: Omnipaque 350 MG/ML 500 ML BTL-Imaging package IJ (13:53)
[2022-10-03 15:00] LABS: Troponin I 65 ng/L (<or=60)
[2022-10-03] MEDS: Acetaminophen 325 MG TAB PO (17:46)
--- NOTE | 2022-10-03 18:43 | W.PM.HP.N ---
Date of service: 10/03/22 Time of Service: 18:43 Assessment and Plan Assessment and plan (1) Dehydration: Status: Acute Assessment and plan: continue iv fluid rehydration gently w/ LR @ 100 mL/hr for another liter; monitor oral intake, vital signs, repeat BMP in the morning; order antiemetics; replace electrolytes (potassium and magnesium) Professional time spent interviewing and examining patient, discussion of goals of care with hospital team (care management, nursing and consulting professionals) was 60 minutes. (2) Hypomagnesemia: Status: Acute Assessment and plan: patient given mag oxide 800 mg po in the ED. He will need further iv bolus to correct his magnesium of 1.1. I have ordered magnsium sulfate 4 gm tonight along w/ potassium replacement. I presume his Mg and K deficiency arer due to his chemotherapy and poor oral intake along w/ the diarrhea. (3) Hypokalemia: Status: Acute Assessment and plan: replace and recheck in the a.m. (4) Atrial fibrillation: Status: Chronic Assessment and plan: unclear as to how old this dx however, he has not been on any chronic anticoagulation. [facility] if he has had afib in the past. (5) Coronary atherosclerosis: Assessment and plan: minimal elevated troponin; will monitor, repeat EKG and check echocardiogram in the a.m. I presume this is demand ischemia and does not appear to be a plaque rupture. continue his aspirin. (6) Essential hypertension: Status: Acute Assessment and plan: continue his home dose of metoprolol, monitor BP (7) Leukocytosis, unspecified: Status: Acute (8) DVT prophylaxis: Status: Acute Assessment and plan: enoxaparin SC 30 mg q24h (reduced for his LORENZO), he has thrombocytopenia from his chemotherapy but as long as platelets are above 50,000 ok to use enoxaparin. History of Present Illness History of Present Illness Chief Complaint: weakness and dehydration from chemotherapy Narrative: 82-year-old male with history of Hodgkin's lymphoma currently undergoing chemotherapy treatment with brentuximab and Bendamustine last dose on 09/22/2022 and 09/23/2022. Patient states that every time he gets his chemotherapy he gets loss of appetite and tends to get dehydrated. He denies any vomiting. He has had recent diarrhea after his chemotherapy. He reportedly has been drinking ice water but not been able to eat anything. Complains of generalized weakness and fatigue but no associated night sweats or fever or rigors. He gets short of breath with minimal physical activity but has no orthopnea or PND and no pedal edema. Denies any chest pain or pressure or palpitations. Evaluation in the emergency department clued a chest x-ray and a chest CT scan. Chest x-ray demonstrated moderate size unilateral right pleural effusion left lung was clear he has sternotomy wires and a right sided Port-A-Cath with the distal tip in the right atrium. CT scan showed a prominent malignant appearing mass in the right suprahilar region involving right upper lobe and mediastinum and surrounding the nonoccluded azygos vein arch with an ipsilateral moderate to large sized pleural effusion. Patient has a cardiac pacemaker with wires. He has no pericardial effusion. Laboratory studies include CBC that shows a leukocytosis of 14,600 with increased neutrophils 11,600. He has a normocytic normochromic anemia with a hemoglobin 8.4 g and hematocrit 24% with platelet count 64,000. Pro time is minimally elevated 11.2 with an INR 1.1 and normal PTT of 20.3. Blood lactate was elevated at 1.6, CMP demonstrated a low potassium and magnesium and elevated BUN and creatinine. Potassium 3.2 magnesium 1.1 BUN 27 creatinine 1.7. Transaminases were normal except for an alkaline phosphatase of 130. Troponin I levels were elevated at 68 on admission and repeat 3 hours later was 65 and a current level on admission to the floor is now 63. Urinalysis showed specific gravity was increased at 1.020 with 100 mg/dL protein trace of blood negative for nitrites negative bilirubin negative leukocyte Estrace and negative crystals or white cells in his urine and bacteria was rare. ECG demonstrates atrial fibrillation at a rate of [address]-T wave abnormalities in limb leads I and aVL as well as across the precordial leads. Primarily that there is flattening of the T waves with a slight inversion in 1 and aVL. No acute ST elevation. He has evidence of an old inferior NH. Patient is now admitted for IV fluid replacement and correction of his electrolytes and monitoring of his troponin levels. Of note patient has a leukocytosis but also reportedly had Neupogen after his chemotherapy treatment. Review of Systems All systems reviewed & are unremarkable except as noted in HPI and below PFSH All Active Problems (Updated 10/03/22 @ 19:33 by Peyman Godfrey MD) Atrial fibrillation (Chronic) DVT prophylaxis (Acute) Leukocytosis, unspecified (Acute) Port-A-Cath in place (Acute) BPH (benign prostatic hyperplasia) (Chronic) Essential hypertension (Acute) Hypokalemia (Acute) Hypomagnesemia (Acute) Dehydration (Acute) Hodgkins lymphoma (Chronic) Medical History (Updated 10/03/22 @ 19:33 by Peyman Godfrey MD) Coronary atherosclerosis Surgical History (Updated 10/03/22 @ 19:21 by Peyman Godfrey MD) History of tonsillectomy Pacemaker Status post coronary artery bypass graft (~1995) Family History (Updated 10/03/22 @ 19:23 by Peyman Godfrey MD) Father , age 54 from CAD Heart disease Paternal Grandfather , in his 50's from CAD Heart disease Social History (Updated 10/03/22 @ 19:22 by Peyman Godfrey MD) Smoking/Tobacco Use Status: Current-Occasional Tobacco Type: cigarettes Years smoked: 64 Smoking risk assessment performed?: Yes Alcohol Intake: never Drug use: Never Substance use type: does not use Meds Allergies and Home Medications Allergies Allergy/AdvReac Type Severity Reaction Status Date / Time allopurinol AdvReac Intermediate Skin Rash Unverified 10/03/22 11:46 cephalexin [From Keflex] AdvReac Intermediate Skin Rash Unverified 10/03/22 11:46 Home Medications Medication Instructions Recorded Confirmed Type acetaminophen 500 mg tablet 1,000 mg PO Q6H PRN 10/03/22 10/03/22 History aspirin 81 mg tablet,delayed 81 mg PO DAILY 10/03/22 10/03/22 History release gabapentin 100 mg tablet 100 mg PO DAILY 10/03/22 10/03/22 History loratadine 10 mg tablet 10 mg PO QDAY 10/03/22 10/03/22 History metoprolol tartrate 25 mg tablet 12.5 mg PO BID 10/03/22 10/03/22 History multivitamin 1 cap PO DAILY 10/03/22 10/03/22 History niacinamide 500 mg tablet 500 mg PO BID 10/03/22 10/03/22 History prochlorperazine maleate 10 mg 10 mg PO Q6H PRN 10/03/22 10/03/22 History tablet rosuvastatin 40 mg tablet 40 mg PO DAILY 10/03/22 10/03/22 History Exam Narrative Exam Narrative: Obese elderly male who is alert and oriented person place time circumstance in no acute respiratory distress HEENT patient wears glasses, dentures upper and lower with partials on the lower full set on the upper no exudate Neck supple no overt JVD normal carotid pulses but irregular irregular Chest pacemaker underneath the left infraclavicular space, Port-A-Cath over the right upper anterior chest, no induration or erythema Lungs are clear to auscultation Heart is irregularly irregular with a harsh systolic murmur over the aortic outflow tract Abdomen obese soft nontender no palpable masses no bruits Lower extremities no peripheral cyanosis or edema no calf tenderness Neuro exam grossly intact no focal motor deficits no normal range of motion and strength in both upper and lower extremities Results Labs 10/03/22 11:20 10/03/22 11:20 Labs: Laboratory Results - last 24 hr 10/03/22 10/03/22 10/03/22 11:20 11:20 11:20 WBC 14.66 H RBC 2.66 L Hgb 8.4 L Hct 24.1 L MCV 91 MCH 31.6 MCHC 34.9 RDW 13.6 Plt Count 64 L MPV 12.0 H Immature Gran % 1.8 Neutrophils % 79.2 Lymphocytes % 1.6 Monocytes % 16.6 Eosinophils % 0.5 Basophils % 0.3 Nucleated RBC % 0.0 Absolute Neutrophils 11.61 H Absolute Lymphocytes 0.23 L Absolute Monocytes 2.43 H Absolute Eosinophils 0.07 Absolute Basophils 0.04 RBC Morphology Normal PT INR APTT D-Dimer VBG Lactate 1.6 H Sodium 143 Potassium 3.2 L Chloride 105 Carbon Dioxide 24.4 Anion Gap 13.6 H BUN 27 H Creatinine 1.7 H Est GFR (CKD-EPI 2020) 40.00 Glucose 117 H Calcium 9.0 Magnesium 1.1 L Total Bilirubin 0.6 AST 25 ALT 14 L Alkaline Phosphatase 130 H Troponin I 68 H* Total Protein 7.5 Albumin 3.5 Urine Color Urine Clarity Urine pH Ur Specific [place] Urine Protein Urine Ketones Urine Blood Urine Nitrite Urine Bilirubin Urine Urobilinogen Ur Leukocyte Esterase Urine RBC Urine WBC Ur Epithelial Cells Urine Crystals Urine Bacteria Urine Casts Urine Mucus Urine Other Ur Culture Indicated? Urine Glucose COVID-19 Source SARS-CoV-2 (PCR) 10/03/22 10/03/22 10/03/22 11:20 11:45 12:15 WBC RBC Hgb Hct MCV MCH MCHC RDW Plt Count MPV Immature Gran % Neutrophils % Lymphocytes % Monocytes % Eosinophils % Basophils % Nucleated RBC % Absolute Neutrophils Absolute Lymphocytes Absolute Monocytes Absolute Eosinophils Absolute Basophils RBC Morphology PT INR APTT D-Dimer 4045 H VBG Lactate Sodium Potassium Chloride Carbon Dioxide Anion Gap BUN Creatinine Est GFR (CKD-EPI 2020) Glucose Calcium Magnesium Total Bilirubin AST ALT Alkaline Phosphatase Troponin I Cancelled Total Protein Albumin Urine Color Urine Clarity Urine pH Ur Specific [place] Urine Protein Urine Ketones Urine Blood Urine Nitrite Urine Bilirubin Urine Urobilinogen Ur Leukocyte Esterase Urine RBC Urine WBC Ur Epithelial Cells Urine Crystals Urine Bacteria Urine Casts Urine Mucus Urine Other Ur Culture Indicated? Urine Glucose COVID-19 Source Nasal/Nares SARS-CoV-2 (PCR) Negative 10/03/22 10/03/22 10/03/22 13:00 13:15 14:32 WBC RBC Hgb Hct MCV MCH MCHC RDW Plt Count MPV Immature Gran % Neutrophils % Lymphocytes % Monocytes % Eosinophils % Basophils % Nucleated RBC % Absolute Neutrophils Absolute Lymphocytes Absolute Monocytes Absolute Eosinophils Absolute Basophils RBC Morphology PT 11.2 H INR 1.1 APTT 28.3 D-Dimer VBG Lactate Sodium Potassium Chloride Carbon Dioxide Anion Gap BUN Creatinine Est GFR (CKD-EPI 2020) Glucose Calcium Magnesium Total Bilirubin AST ALT Alkaline Phosphatase Troponin I 65 H* Total Protein Albumin Urine Color Yellow Urine Clarity Clear Urine pH 5.5 Ur Specific [place] 1.020 Urine Protein 100 H Urine Ketones Negative Urine Blood Trace-intact H Urine Nitrite Negative Urine Bilirubin Negative Urine Urobilinogen 1.0 H Ur Leukocyte Esterase Negative Urine RBC 0-2 Urine WBC Negative Ur Epithelial Cells Negative Urine Crystals Negative Urine Bacteria Rare Urine Casts Negative Urine Mucus Trace Urine Other Negative Ur Culture Indicated? No Urine Glucose Negative COVID-19 Source SARS-CoV-2 (PCR) Last Vital Signs Temp 36.5 C 10/03/22 18:20 Pulse 88 10/03/22 18:20 Resp 17 10/03/22 18:20 BP 118/70 10/03/22 18:20 Pulse Ox 96 10/03/22 18:20 Time Spent Time spent with Patient: 55-74 minutes Time was spent: preparing to see the patient(eg.review tests), obtaining and/or reviewing separately otained hiistory, ordering medications,tests, procedures, referring, communicating with other health behavioral health care coordinator, indepentently interpreting results, counseling the patient and care coordination
[2022-10-03 18:48] LABS: Troponin I 63 ng/L (<or=60)
[2022-10-03] MEDS: Lactated Ringers 1,000 ML 100 ML IV (18:49)
[2022-10-03] MEDS: Normal Saline Flush 10 ML SYR IVP (18:54)
[2022-10-03 19:09] LABS: Lactate 1.1 mmol/L (0.6-1.4)
[2022-10-03] MEDS: MAGNESIUM SULFATE 4 GM/100 ML BAG IVPB (19:22)
--- NOTE | 2022-10-03 19:22 | TELEP.MEDR_ITS ---
Date of service: 10/03/22 Time of [facility]: 19:23 [facility] Allergies Allergies: allopurinol Adverse Reaction (Intermediate, Unverified 10/03/22 11:46) Skin Rash cephalexin [From Keflex] Adverse Reaction (Intermediate, Unverified 10/03/22 11:46) Skin Rash Interview Person Interviewed: patient Quality Quality of Interview/Accuracy of Medication List: Fair Sources Sources used to compile medication list: [employer] Medication List, Patient List and [employer] Changes made to Home Medication List: ADDITIONS: Patient describes wearing a patch after chemotherapy and he is not sure the name of the patch - this may be neulasta but i could not find a record of any patch so this has nto been updated on his profile DELETIONS: mupirocin and fluorouracil topical CHANGES: none Additional Notes Additional Notes: [facility] patient has Recommended Changes Recommended Changes(reason for recommendation): He has prochlorperazine on hand but has not needed any yet. Attestation: The home medication list is now updated to the best of my knowledge and is ready to be reconciled by the provider. Please contact the [facility] Medication Reconciliation Pharmacist at for any questions.
[2022-10-03] MEDS: POTASSIUM CHLORIDE 10 MEQ/100 ML BAG 100 MEQ IVPB ×4 (19:23→22:41)
[2022-10-03 20:03] LABS: Procalcitonin 0.8 ng/mL
[2022-10-03] MEDS: Enoxaparin 30 MG/0.3 ML SYR SC (20:27)
[2022-10-03] MEDS: Metoprolol 12.5 MG TAB PO (20:27)
[2022-10-04] VITALS (13 sets, daily range): BP systolic 103–117; BP diastolic 59–71; PULSE 59–92; RESP 16–24; TEMP 36–36.9; O2SAT 93–98
[2022-10-04 05:46] LABS: Absolute Basophil Count 0.02 10^3/uL (0.0-0.2); Absolute Eosinophil Count 0.08 10^3/uL (0.0-0.7); Absolute Lymphocyte Count 0.15 10^3/uL (1.2-3.4); Absolute Monocyte Count 1.63 10^3/uL (0.1-0.8); Basophils % 0.2; Eosinophils % 0.8; Immature Grans % 1.9; Lymphocytes % 1.5; MCH 30.8 pg (27.0-33.0); MCHC 33.5 % (32.0-36.0); MCV 92 fL (80-95); MPV 11.8 fL (8.0-11.0); Monocytes % 15.9; Neutrophils % 79.7; RBC 2.24 10^6/uL (4.36-5.78); RDW 13.7 % (11.8-14.1); RDW-SD 43.7 fL; WBC 10.28 10^3/uL (4.4-10.8)
[2022-10-04 05:55] LABS: HCT 20.6 % (40.0-50.0); HGB 6.9 g/dL (13.5-17.5)
[2022-10-04 06:04] LABS: Anion Gap 9.2 mmol/L (3-11); BUN 23 mg/dL (7-18); CO2 26.8 mmol/L (21.0-32.0); CREATININE 1.5 mg/dL (0.70-1.30); Calcium 8.3 mg/dL (8.5-10.1); Chloride 105 mmol/L (98-107); Estimated GFR 46.48 (mL/min/1.73m2); Glucose 113 mg/dL (74-106); Magnesium 2.3 mg/dL (1.8-2.4); Potassium 3.9 mmol/L (3.5-5.1); Sodium 141 mmol/L (136-145)
[2022-10-04 06:18] LABS: TSH (W/Ref FT4) 1.77 uIU/mL (0.36-3.74); Troponin I 53 ng/L (<or=60)
[2022-10-04 06:43] LABS: Diff Comment Diff Reviewed; Platelet Count 51 10^3/uL (130-400); RBC Morphology Normal
--- NOTE | 2022-10-04 08:00 | DI.US_ITS ---
APPROVED REPORT EXAM: Comprehensive 2D, Doppler, and color-flow Echocardiogram Patient Location: In-Patient Room/Bed: 226 Park[address] Line Painter: Terrance Bear RDMS, RVT Indications: elevated troponin, HTN, Afib, evaluate LV and RV function Other Information Study Quality: Adequate. Technically limited study due to inability to position patient. Conclusion Normal left ventricular wall thickness and chamber size. Estimated ejection fraction is 55 to 60%. No wall motion abnormalities are identified Right ventricle is not well visualized Both atria are normal in size Device lead noted in the right heart The aortic valve is calcified and trileaflet with mild stenosis. Peak gradient is 27 mean 20 mmHg. Calculated aortic valve area is 1.71 cm??. There is mild aortic regurgitation Normal mitral valve with mild regurgitation Normal tricuspid valve with trace regurgitation Dilated ascending aorta measuring 3.72 cm Wall motion Left Ventricle The left ventricle is normal size. The left ventricular systolic function is normal. The left ventric ular ejection fraction is within the normal range. There is normal left ventricular wall thickness. T here is normal LV segmental wall motion. There is no ventricular septal defect visualized. LVEF is 55 -60%. Right Ventricle Right ventricle is not well visualized. Right ventricular systolic function could not be assessed. P acemaker lead is present in the right ventricle. Atria The left atrium size is normal. The right atrium size is normal. The interatrial septum is intact wit h no evidence for an atrial septal defect. Aortic Valve Aortic valve is calcified. Aortic valve is trileaflet. Mild aortic stenosis. Peak aortic valve gradi ent is 26.9 mmHg. Highest mean aortic valve gradient is 19.8 mmHg. Calculated ARCHIE by the continuity e quation is 1.71 cm2. Mild aortic regurgitation. Mitral Valve The mitral valve is normal in structure. No evidence of mitral valve stenosis. Mild mitral regurgitat ion. Tricuspid Valve The tricuspid valve is normal in structure. There is no tricuspid valve stenosis. Trace tricuspid reg urgitation. Pulmonic Valve The pulmonary valve is normal in structure. There is no pulmonic valvular stenosis. There is no pulmo gaby valvular regurgitation. Great Vessels The aortic root is normal in size. The ascending aorta is mildly dilated. IVC is normal in size and c ollapses >50% with inspiration. Pericardium There is no pericardial effusion. Moderate left pleural effusion. 2D Dimensions IVSD d PLAX 0.69 cm M: 0.6-1.2 LVPW d PLAX 0.76 cm M: 0.6 - 1.2 LVID d PLAX 4.36 cm M: 4.2 - 5.8 LVDs 2.90 cm M: 2.5 - 4.0 Ao Root d 2.65 cm M: 3.1 - 3.7 Ao Asc Diam d 3.72 cm M: 2.6 - 3.4 LV EF Teichholz 61.6 % FS 32.85 % LV Diastology E/A Ratio 1.5 MV E Vmax 1.13 (0.4-1.3 m/s) MV A Vmax 0.75 (0.4-1.3 m/s) MV E/A Ratio 1.49 Aortic Valve LVOT Area 3.66 cm2 AoV Area Vmax 1.71 cm2 LVOT Vmax 1.21 m/s AoV Area/ BSA (Vmax) 0.93 cm2/m2 LVOT Mean Kaz. 0.95 m/s ARCHIE Mean Kaz. 1.64 cm2 LVOT Peak Grad 5.9 mmHg ARCHIE Mean Kaz. Index 0.89 cm2/m2 LVOT Mean Grad 3.9 mmHg AR DT 1617 msec LVOT VTI 0.308 m AR PHT 469 msec LVOT Diam s 2.15 cm AoV Vmax 2.59 m/s Velocity Ratio 0.47 AoV Mean Kaz. 2.13 m/s AoV Peak Grad 26.9 mmHg LVOT SV 112.78 mL AoV Mean Grad 19.8 mmHg AoV VTI 0.512 m AoV Area VTI 2.20 cm2 AoV Area/ BSA (VTI) 1.20 cm/m2 Mitral Valve MV DT 103 (160-240 msec) MV PHT 30 msec MV Area PHT 7.35 cm2 MV VTI 0.383 m MV Area VTI 2.95 (4.0-6.0 cm2) Pulmonary Valve PV Vmax 1.30 (0.5-1.5 m/s) RVOT Peak Gr. 2.28 mmHg PV Peak Grad 6.7 mmHg RVOT Mean Gr. 1.60 mmHg PV Mean Grad 3.9 mmHg RVOT VTI 0.141 m PV VTI 0.265 m RVOT Vmax 0.75 m/s Tricuspid Valve RA Pressure 3.00 mmHg
[2022-10-04 09:08] LABS: Ferritin 877 ng/mL (26-388)
[2022-10-04 10:26] LABS: HCT 21.7 % (40.0-50.0); HGB 7.3 g/dL (13.5-17.5)
[2022-10-04] MEDS: Rosuvastatin 10 MG TAB 40 MG PO (10:28)
[2022-10-04] MEDS: Metoprolol 12.5 MG TAB PO ×2 (10:28→19:26)
[2022-10-04] MEDS: Aspirin E.C. 81 MG TABEC PO (10:30)
[2022-10-04] MEDS: Multivitamin TAB 1 TAB PO (10:30)
[2022-10-04] MEDS: Loratidine 10 MG TAB PO (10:30)
[2022-10-04] MEDS: Gabapentin 100 MG CAP PO (10:30)
[2022-10-04] MEDS: Acetaminophen 325 MG TAB PO ×2 (10:35→19:26)
[2022-10-04 10:48] LABS: Iron 144 ug/dL (65-175); Total Iron Binding Capacity 262 ug/dL (250-450); Transferrin Sat 55 % (20-55)
--- NOTE | 2022-10-04 11:13 | IN_ITS ---
Date of service: 10/04/22 Time of Service: 10:28 PT Notes Visit Reasons: Dehydration,Hypokalemia,Hypomagnesemia, Physical Therapy Inpatient Initial Evaluation Date: 10/04/2022 Referring Doctor: Peyman Godfrey MD PT Orders: PT CONSULT: Fall Safety assessment. Safety consult for D/C Precautions: Fall. Standard. Activity as tolerated. Patient Profile/Admitting Diagnosis: Antwan is an 82-year-old male with Hodgkin's lymphoma and is currently on chemo therapy who presented to the ED on 10/03/2022 due to worsening weakness. Patient is admitted for management of dehydration, hypomagnesemia, hypokalemia, atrial fibrillation, CAD, and essential hypertension. Recently completed third chemotherapy session the first week of September 2022. PMHX: All Active Problems?(Updated 10/03/22 @ 19:33 by Peyman Godfrey MD) Atrial fibrillation (Chronic) DVT prophylaxis (Acute) Leukocytosis, unspecified (Acute) Port-A-Cath in place (Acute) BPH (benign prostatic hyperplasia) (Chronic) Essential hypertension (Acute) Hypokalemia (Acute) Hypomagnesemia (Acute) Dehydration (Acute) Hodgkins lymphoma (Chronic) Medical History?(Updated 10/03/22 @ 19:33 by Peyman Godfrey MD) Coronary atherosclerosis Surgical History?(Updated 10/03/22 @ 19:21 by Peyman Godfrey MD) History of tonsillectomy Pacemaker Status post coronary artery bypass graft (~1995) Social History/Home Situation: Lives alone in a private home with 3 steps to enter with rails on both sides. Independent with all mobility ADLs without assistive device prior to admission. Equipment Owned/DME: None Subjective: Patient reports weakness, fatigue, and shortness of breath but is willing to walk a short distance inside his room for this session. Denies headache, chest pain, and lightheadedness throughout session. patient adds that he has not been eating as much as he should, does not know why his appetite is declining, willing to work with the car painter to address this issue. Agreeable to trying out a 4WW for longer distance walk this afternoon. Per Nurse Ann patient's hemoglobin is 6.9 g/dL earlier this morning and so may get transfused with RBCs later. Objective: General Observation: Seated on bedside chair. IV access in R UE. Mental Status: Alert and oriented as to person, place, time, and purpose. Able to pay attention, focus, and respond appropriately. Pain: Denies Vital Signs: WNL as closley monitored by nursing staff ROM: Right Upper Extremity: Shoulder Flexion WFL. Shoulder abduction WFL. Elbow flexion WFL. Wrist flexion WFL. Functional opening and closing of hand WFL. Left Upper Extremity: Shoulder Flexion WFL. Shoulder abduction WFL. Elbow flexion WFL. Wrist flexion WFL. Functional opening and closing of hand WFL. Right Lower Extremity: Hip flexion WFL. Hip abduction WFL. Knee flexion WFL. Ankle dorsiflexion WFL. Ankle plantarflexion WFL. Left Lower Extremity: Hip flexion WFL. Hip abduction WFL. Knee flexion WFL. Ankle dorsiflexion WFL. Ankle plantarflexion WFL. Strength: Right Upper Extremity: Shoulder flexors 4-/5. Shoulder abductors 4-/5. Elbow flexors 4/5. Elbow extensors 4/5. Sales Administration Manager strong. Left Upper Extremity: Shoulder flexors 4-/5. Shoulder abductors 4-/5. Elbow flexors 4/5. Elbow extensors 4/5. Sales Administration Manager strong. Right Lower Extremity: Hip flexors 4-/5. Hip abductors 4-/5. Knee flexors 4-/5. Knee extensors 4-/5. Ankle dorsiflexors 4-/5. Ankle plantarflexors 4-/5. Left Lower Extremity: Hip flexors 4-/5. Hip abductors 4-/5. Knee flexors 4-/5. Knee extensors 4-/5. Ankle dorsiflexors 4-/5. Ankle plantarflexors 4-/5. Bed Mobility/Transfers: Sit to stand with contact guard assist Stand to sit with contact guard assist Gait: Instructed patient with level surface ambulation of 40 feet requiring contcat guard assist. Verenice decreased. Step height decreased. Step length decreased. Complained of mild shortness of breath and fatigue after activity. Balance: Static Sitting: Normal Dynamic Sitting: Normal Static Standing: Fair Dynamic Standing: Fair Special Tests: Mobility Limitations Standardized Measure [facility] AM-PAC 6 clicks Basic Mobility Inpatient Short Form: Raw Score: 23 CMS Score: 11% deficit Informed Consent/Education: Patient was instructed in purpose of PT consult and plan of care. Agreeable to proceed with established PT POC to achieve personal goals. Assessment: Patient presents with clinical signs and symptoms consistent with current/admitting diagnoses that have resulted to mobility limitations, gait instability, generalized weakness, and overall ADL decline as demonstrated by the following impairment level findings: 1. Decreased strength to B UE/LE major muscle groups 2. Impaired sitting/standing balance 3. Impaired activity tolerance 4. Shortness of breath Impairments are contributing to the following functional limitations: 1. Difficulty with ambulation without assistive device and physical assistance 2. Increased completion time for mobility ADL performance 3. Increased risk for falls 4. Difficulty with managing steps alone safely Patient is assessed as a 16530 moderate complexity based on the following: History: 82-year-old male with past medical history as indicated above Examination: Demonstrable impairment in strength, balance, and mobility level with underlying impairments and functional limitations as exhibited above as well as deficit score of 11% utilizing the [facility] Mobility Inpatient Short Form Presentation: Evolving Decision Makin moderate complexity Goals: Goals X1 week 1. Supine-Sit independent 2. Sit-Supine independent 3. Sit-Stand independent 4. Stand-Sit independent with 4WW 5. Bed-Chair independent with 4WW 6. Chair-Bed independent with 4WW 7. Independent gait on level surface with use of 4WW for at least 300 feet without report of pain nor dyspnea 8. Independent stair negotiation while holding onto B rails for at least 5 steps without report of pain nor dyspnea 9. Independent with home exercise program 10. Good static and dynamic standing balance/tolerance Plan of Care/Treatment Plan: 1-2x/day, 7 days/week x 1 week. Plan of care has been reviewed with the BUSINESS PLANNER providing the service under Physical Therapy direction. Initiate Physical Therapy intervention for pain management as needed, strengthening, bed mobility, transfers, gait, stairs, balance training, and use of assistive device. DISCHARGE RECOMMENDATIONS: [] Home with no services [] [X] Home with services. Patient will benefit from home health PT services in order to progress mobility level using least restrictive assistive ambulatory device, assess home safety, identify additional equipment needs, and establish a functional maintenance program that will increase ability of patient to remain at home. [] Home with outpatient PT [] [] SNF for continued rehabilitation [] [] Automotive Engineering Teacher Care [] [] SNF versus LTC based on ability to participate and progress [] TREATMENT CODE/TIME: 24994 x 22 minutes beginning at 9:38 AM. Thank you for the opportunity to participate in the care of this patient. Rachel Broderick PT, DPT, CLT [facility] [place], [place]
--- NOTE | 2022-10-04 12:19 | PDOC.CMIN ---
- If Service Date Differs Date of service: 10/04/22 Time of Service: 12:19 Care Management Initial Assess REASON FOR HOSPITALIZATION:: Dehydration, hypokalemia, hypomagnesemia, elevated troponin PAST MEDICAL HISTORY/PAST SURGICAL HISTORY:: All Active Problems. Atrial fibrillation (Chronic). DVT prophylaxis (Acute). Leukocytosis, unspecified (Acute). Port-A-Cath in place (Acute). BPH (benign prostatic hyperplasia) (Chronic). Essential hypertension (Acute). Hypokalemia (Acute). Hypomagnesemia (Acute). Dehydration (Acute). Hodgkins lymphoma (Chronic). Medical History. Coronary atherosclerosis. Surgical History. History of tonsillectomy. Pacemaker. Status post coronary artery bypass graft (~1995) PREVIOUS FUNCTIONAL STATUS/SOCIAL/FAMILY SUPPORTS:: Antwan lives in [place], alone, in an upstairs apartment. His brother Kai lives nearby in [place]. Antwan reports that he is independent with his ADL's at baseline. CURRENT FUNCTIONAL STATUS:: Antwan was sitting up in his chair when CM met with him. He reported that he is feeling much better today than when he arrived. He stated that he met with Palliative care today, and he reported that they were talking about making plans for when he can no longer care for himself. He stated that he is currently able to care for himself, and he will take every day as it comes. Per report, he is receiving a unit of blood today, and will be evaluated by PT. CM will continue to follow. ADVANCE DIRECTIVES:: None on file, Palliative is consulted on this admission to discuss goals of care. Has patient been provided with info about the portal/API?: Yes Did the patient sign up for the portal?: No CODE STATUS:: Full Code INSURANCE COVERAGE / FINANCIAL ISSUES:: [place] CURRENT HOME/COMMUNITY SERVICES/EQUIPMENT:: None PRIMARY CARE PHYSICIAN:: Moo Mora POTENTIAL DISCHARGE NEEDS:: Evaluations for further needs, follow up appointments. PATIENT/FAMILY EDUCATION NEEDS:: Review discharge instructions and limitations, discussion of self care needs including ask me three. ANTICIPATED BARRIERS TO DISCHARGE:: None. TRANSPORTATION:: Via private vehicle by family. PLAN:: Anticipate Antwan will return home once medically cleared. PT is evaluating for further needs, and Palliative is consulted to discuss goals of care. He will follow up with his PCP and discharge plan of care. CM will continue to follow.
--- NOTE | 2022-10-04 12:44 | PGE_ITS ---
Date of Service Date of service: 10/04/22 Time of Service: 12:44 Assessment and Plan Assessment and plan (1) Dehydration: Status: Acute Assessment and plan: Patient appears to be rehydrated and feeling better today however he is now more anemic. We will proceed with a transfusion of 1 unit packed red cells recheck his hemoglobin hematocrit. If he has no active bleeding and his blood count remained stable overnight I will plan on discharging him home in the morning. Stool was checked and found to be Hemoccult negative per his bowel movement this morning. Professional time spent interviewing and examining patient, discussion of goals of care with hospital team (care management, nursing and consulting professionals) was 30 minutes. (2) Hypomagnesemia: Status: Acute Assessment and plan: Potassium and magnesium have been repleted. Magnesium is up to 2.3 while his potassium is now 3.9. We will continue on oral supplementation. (3) Hypokalemia: Status: Acute Assessment and plan: Repleted (4) Atrial fibrillation: Status: Chronic Assessment and plan: unclear as to how old this dx however, he has not been on any chronic anticoagulation. [facility] if he has had afib in the past. He remains in ventricular paced rhythm with underlying atrial fibrillation (5) Coronary atherosclerosis: Assessment and plan: minimal elevated troponin; will monitor, repeat EKG and check echocardiogram in the a.m. I presume this is demand ischemia and does not appear to be a plaque rupture. continue his aspirin. 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 Continue to monitor his platelet count if he drops below 50,000 then enoxaparin should be discontinued. Subjective Subjective Interval history since last seen: Patient feels better today he is less fatigued less dyspneic. However overnight his hemoglobin has dropped. Hemoglobin is 8.4 g hematocrit 24% on admission and dropped down to 6.9 g and 20%. Platelet count dropped from 64,000 to 51,000. He denies any melena or hematochezia. No hx of PUD. I am recommending transfusion rather than more IV fluids for rehydration Exam Narrative Exam Narrative: Alert and oriented x3. No acute distress not in any respiratory discomfort not requiring any oxygen. Lungs are clear anteriorly and posteriorly Heart is regular with soft systolic murmur over the apex no thrill or heave Abdomen obese soft nontender Lower extremities without edema Objective Last Vital Signs Temp 36.9 C 10/04/22 12:32 Pulse 92 H 10/04/22 12:32 Resp 22 10/04/22 12:32 BP 112/63 10/04/22 12:32 Pulse Ox 93 10/04/22 12:32 Laboratory Results - last 24 hr 10/03/22 10/03/22 10/03/22 12:15 13:00 13:15 WBC RBC Hgb Hct MCV MCH MCHC RDW Plt Count MPV Immature Gran % Neutrophils % Lymphocytes % Monocytes % Eosinophils % Basophils % Nucleated RBC % Absolute Neutrophils Absolute Lymphocytes Absolute Monocytes Absolute Eosinophils Absolute Basophils RBC Morphology PT 11.2 H INR 1.1 APTT 28.3 VBG Lactate Sodium Potassium Chloride Carbon Dioxide Anion Gap BUN Creatinine Est GFR (CKD-EPI 2020) Glucose Calcium Magnesium Iron TIBC Transferrin % Sat Ferritin Troponin I Procalcitonin TSH Urine Color Yellow Urine Clarity Clear Urine pH 5.5 Ur Specific Switzer 1.020 Urine Protein 100 H Urine Ketones Negative Urine Blood Trace-intact H Urine Nitrite Negative Urine Bilirubin Negative Urine Urobilinogen 1.0 H Ur Leukocyte Esterase Negative Urine RBC 0-2 Urine WBC Negative Ur Epithelial Cells Negative Urine Crystals Negative Urine Bacteria Rare Urine Casts Negative Urine Mucus Trace Urine Other Negative Ur Culture Indicated? No Urine Glucose Negative SARS-CoV-2 (PCR) Negative Patient ABO/Rh Antibody Screen Crossmatch 10/03/22 10/03/22 10/03/22 14:32 18:04 18:56 WBC RBC Hgb Hct MCV MCH MCHC RDW Plt Count MPV Immature Gran % Neutrophils % Lymphocytes % Monocytes % Eosinophils % Basophils % Nucleated RBC % Absolute Neutrophils Absolute Lymphocytes Absolute Monocytes Absolute Eosinophils Absolute Basophils RBC Morphology PT INR APTT VBG Lactate Sodium Potassium Chloride Carbon Dioxide Anion Gap BUN Creatinine Est GFR (CKD-EPI 2020) Glucose Calcium Magnesium Iron TIBC Transferrin % Sat Ferritin Troponin I 65 H* 63 H* Procalcitonin 0.8 TSH Urine Color Urine Clarity Urine pH Ur Specific Switzer Urine Protein Urine Ketones Urine Blood Urine Nitrite Urine Bilirubin Urine Urobilinogen Ur Leukocyte Esterase Urine RBC Urine WBC Ur Epithelial Cells Urine Crystals Urine Bacteria Urine Casts Urine Mucus Urine Other Ur Culture Indicated? Urine Glucose SARS-CoV-2 (PCR) Patient ABO/Rh Antibody Screen Crossmatch 10/03/22 10/04/22 10/04/22 18:56 05:20 05:20 WBC RBC Hgb Hct MCV MCH MCHC RDW Plt Count MPV Immature Gran % Neutrophils % Lymphocytes % Monocytes % Eosinophils % Basophils % Nucleated RBC % Absolute Neutrophils Absolute Lymphocytes Absolute Monocytes Absolute Eosinophils Absolute Basophils RBC Morphology PT INR APTT VBG Lactate 1.1 Sodium 141 Potassium 3.9 Chloride 105 Carbon Dioxide 26.8 Anion Gap 9.2 BUN 23 H Creatinine 1.5 H Est GFR (CKD-EPI 2020) 46.48 Glucose 113 H Calcium 8.3 L Magnesium 2.3 Iron TIBC Transferrin % Sat Ferritin Troponin I 53 Procalcitonin TSH 1.77 Urine Color Urine Clarity Urine pH Ur Specific Switzer Urine Protein Urine Ketones Urine Blood Urine Nitrite Urine Bilirubin Urine Urobilinogen Ur Leukocyte Esterase Urine RBC Urine WBC Ur Epithelial Cells Urine Crystals Urine Bacteria Urine Casts Urine Mucus Urine Other Ur Culture Indicated? Urine Glucose SARS-CoV-2 (PCR) Patient ABO/Rh Antibody Screen Crossmatch 10/04/22 10/04/22 10/04/22 05:20 05:20 10:15 WBC 10.28 RBC 2.24 L Hgb 6.9 L* Hct 20.6 L* MCV 92 MCH 30.8 MCHC 33.5 RDW 13.7 Plt Count 51 L MPV 11.8 H Immature Gran % 1.9 Neutrophils % 79.7 Lymphocytes % 1.5 Monocytes % 15.9 Eosinophils % 0.8 Basophils % 0.2 Nucleated RBC % 0.0 Absolute Neutrophils 8.20 H Absolute Lymphocytes 0.15 L Absolute Monocytes 1.63 H Absolute Eosinophils 0.08 Absolute Basophils 0.02 RBC Morphology Normal PT INR APTT VBG Lactate Sodium Potassium Chloride Carbon Dioxide Anion Gap BUN Creatinine Est GFR (CKD-EPI 2020) Glucose Calcium Magnesium Iron TIBC Transferrin % Sat Ferritin 877 H Troponin I Procalcitonin TSH Urine Color Urine Clarity Urine pH Ur Specific Switzer Urine Protein Urine Ketones Urine Blood Urine Nitrite Urine Bilirubin Urine Urobilinogen Ur Leukocyte Esterase Urine RBC Urine WBC Ur Epithelial Cells Urine Crystals Urine Bacteria Urine Casts Urine Mucus Urine Other Ur Culture Indicated? Urine Glucose SARS-CoV-2 (PCR) Patient ABO/Rh O Positive Antibody Screen NEGATIVE Crossmatch See Detail 10/04/22 10/04/22 10:15 10:15 WBC RBC Hgb 7.3 L Hct 21.7 L MCV MCH MCHC RDW Plt Count MPV Immature Gran % Neutrophils % Lymphocytes % Monocytes % Eosinophils % Basophils % Nucleated RBC % Absolute Neutrophils Absolute Lymphocytes Absolute Monocytes Absolute Eosinophils Absolute Basophils RBC Morphology PT INR APTT VBG Lactate Sodium Potassium Chloride Carbon Dioxide Anion Gap BUN Creatinine Est GFR (CKD-EPI 2020) Glucose Calcium Magnesium Iron 144 TIBC 262 Transferrin % Sat 55 Ferritin Troponin I Procalcitonin TSH Urine Color Urine Clarity Urine pH Ur Specific Switzer Urine Protein Urine Ketones Urine Blood Urine Nitrite Urine Bilirubin Urine Urobilinogen Ur Leukocyte Esterase Urine RBC Urine WBC Ur Epithelial Cells Urine Crystals Urine Bacteria Urine Casts Urine Mucus Urine Other Ur Culture Indicated? Urine Glucose SARS-CoV-2 (PCR) Patient ABO/Rh Antibody Screen Crossmatch Time Spent with Patient Time Spent with Patient: 25-34 minutes Time was spent: preparing to see the patient(eg.review tests), ordering medications,tests, procedures, indepentently interpreting results, counseling the patient and care coordination
--- NOTE | 2022-10-04 12:45 | W.NUTCONSULT ---
Date of service: 10/04/22 Time of Service: 12:45 Nutritional Consult ASSESSMENT: Met with Antwan today. He was admitted with dehydration, hypo Mg, hypo K s/p chemo treatment last week for lymphoma. This was second round on chemo. Reports no food insecurity at home. No n/v but loss of appetite. Has compazine but states he does not take unless wants to vomit. Encouraged him to take as prescribed to help with po intake s/p chemo. Following regular/soft diet with poor intake. Only able to eat a couple of bites of lunch today. Prefers drinking ensure instead of eating meals. Estimated Needs: [id number] kcal, 60-70 g protein, 2000 ml fluid INTERVENTION: Provided education on macronutrient needs and encouraged him to have protein supplements like ensure at home after next chemo session. Goal is to drink at least 1 ensure plus for each meal missed. May benefit from appetite stimulant such as remeron or marinol. MONITORING AND EVALUATION: Will be available prn Time Spent in Nutritional Counseling and Treatment: 30
--- NOTE | 2022-10-04 13:34 | PCNE_ITS ---
Date of service: 10/04/22 Time of Service: 13:34 History of Present Illness Narrative: Mr. Simmons is an 82-year-old gentleman from [place], [place] with history of Hodgkin's lymphoma (currently being treated at [facility]), chronic atrial fibrillation, who was admitted to [facility] yesterday with dehydration/diarrhea (no vomiting) and electrolyte abnormalities due to anorexia after last course chemotherapy. Palliative care team has been asked to meet with him to go over goals of care, CODE STATUS, and offer report of care. Note that patient is a [place] and receives most of his health care through the [facility]. (Oncology through [facility]) Notes that after the last chemo 09/22 I've done nothing but go downhill, getting weaker, so weak I can't do anything. Labs upon admission revealed profound anemia. He is currently receiving PRBC transfusion during my visit History as per September 22, 2022 [facility] oncology note: Diagnosed June 2020 with Hodgkin's disease in his chest. Treated with 2 cycles of brentuximab with long interval due to poor performance status. He was then treated with 2 cycles of a AVD complicated by sepsis, hospitalization, C. difficile and rehab. Subsequently maintained for over a year on single agent Pembro. Last PET scan showed substantial progression despite immunotherapy. Oncologist recommended change of therapy to brentuximab and Bendamustine. Patient reports that he struggled with cycle 1 with diarrhea and dehydration following initial constipation.? Neulasta (09/22/2022). A month ago had to go to [facility] for IV hydration after second administration of new chemo. Has had total 3 treatments with new regimen. Care Team: Primary Care physician: Olegario Harkins MD ([facility]) Oncology: Dr. 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 Worked until Cancer dx. 4 times and 3 times, (2011 ). Estranged from 4 biological children (Darlynley no contact). No hobbies. States that since he was diagnosed with lymphoma 2 years ago I am just working on [employer]. Lives alone in apartment (15 stairs to apartment), dog 7 months ago. Brother Kai lives in same town. Nieces and nephews live in [place] nearby and he does have relationship with them. Likes to walk Resources: None. Is aware of [facility] resources and now plans to contact them to begin getting some home services Impression of currents health status:Getting better since a few days ago. Overall since Xmas, has gone downhill What bothers you the most:Feeling cold with the winter weather, not being able to do the things he used to do, being alone. What worries you the most: Getting old. I don't plan ahead since I got the cancer. What's important: being independent, prefers being with people, but less important that being independent. What would you do if you can no longer live at home? [facility] in [place]. This is an acceptable option to him. Current information preferences: Like to have someone look me in the eye and tell me straight Function: Ambulation: No aids ADLs: Independent iADLs:Independent, including financial. Still drives. Hearing: Pretty good Vision:Good Palliative Performance Scale % Ambulation Activity and Evidence of Disease Self Care Intake Level of Consciousness 100 Full Normal activity, no evidence of disease Full Normal Full 90 Full Normal activity, some evidence of disease Full Normal Full 80 Full Normal activity with effort, some evidence of disease Full Normal or reduced Full 70 Reduced Unable to do normal work, some evidence of disease Full Normal or reduced Full 60 Reduced Unable to do hobby or some housework, significant disease Occasional assist necessary Normal or reduced Full or confusion 50 Mainly sit/lie Unable to do any work, extensive disease Considerable assistance required Normal or reduced Full or confusion 40 Mainly in bed Unable to do any work, extensive disease Mainly assistance Normal or reduced Full, drowsy, or confusion 30 Totally bed bound Unable to do any work, extensive disease Total care Reduced Full, drowsy, or confusion 20 Totally bed bound Unable to do any work, extensive disease Total care Minimal sips Full, drowsy, or confusion 10 Totally bed bound Unable to do any work, extensive disease Total care Mouth care only Drowsy or coma 0 - - - - Patient Score: 70 Spiritual history:Believes in god, not churchgoer. Prayer helps. Prays nightly. 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 More so in the last 2 weeks GI symptoms:See HPI Appetite: Very poor for a while, much worse the last 3 weeks. Over the last year weight weight about the same, lost 9 lbs over the last week. Depression:A little a bit earlier in the winter, when it was cold(was feeling sorry for myself ). Never severe in the past, never needed meds. Anxiety: None Emotional Distress: Spiritual/Existential Distress: Labs: See below. CKD 3, stable at this admission. Significant profound new or anemia at this admission Advanced Care Planning: Advanced Directive:Says there is a AD in [place] that says that if there is no hope, pull the plug; Health Care Agent:Kai Simmons (older brother) Jonas.Tita and Miles Ritchie are alternates (Kierra) COLST: None. Wishes to be full code. Limitations: If I am a vegetable I want them to pull the plug Assessment and Plan Assessment and plan (1) Palliative care encounter: Status: Acute Assessment and plan: With recent progression of Hodgkin's lymphoma after over a year of stability on immunotherapy, and significant side effects from new chemotherapy regimen, ambreen guajardo is very appropriate for palliative care involvement. see discussion under advance care planning below. I am hoping patient can be connected with the [facility] palliative care team. Since he is a [facility] patient, [place] usually does not approve of outpatient visits from [facility] Palliative Team when the patients are outside of the hospital. However we are happy to meet with patient again if requested. (2) Advanced care planning/counseling discussion: Start date: 10/04/22 Start time: 16:00 Status: Acute Assessment and plan: What is most important to patient is remaining independent. However he is pr agmatic, and volunteers that he feels he now should avail himself of [place] home support services that he is eligible for. He also volunteers that when he can no longer live at home with that support, he would like to move to a veterans home. Patient reports that he has an advanced directive on file with [place]. He does not have a copy. We were unable to access. He says it states that if t here is no hope, pull the plug . Brothluci Garner is primary healthcare agent (visiting friend describes this older brother as actually in quite poor health). Alternate agents named above. Patient is very clear that he does not want to make any changes to those papers on file at the [place] , even light of progression of his Hodgkin's lymphoma after over a year of stability on immunotherapy. I work so hard to get everything in place, we cannot change anything . Regarding CODE STATUS: Patient says he would like to be full code. We reviewed what having CPR actually entails, risks, success rate, outcomes (in unlikely event he is resuscitated, likely will be less functional). Patient does not feel distressed by having this type of procedure performed on him I will not be aware of it, it is fine . He is very concerned about making any changes to his advance directives. I attempted to explore this with him, but he is consistent with his wishes. He remains a full code. Plan: -Case Management is going to check state database to see if advanced directive is on file. -Request that Case Management reach out to [place] to make referral to [facility]'s home palliative program. I believe this will trigger referral to multiple services. -Patient would benefit from ongoing connection with the palliative medicine program. [facility] has palliative care clinicians who do home visits. Given recent progression of his disease and poor response to this new chemotherapy regimen, hopefully he can be connected with home [place] palliative program and they can continue to offer additional support and further explore advance care planning. - (3) Hodgkins lymphoma: Status: Chronic Assessment and plan: As per [facility] oncologist. Unfortunately patient has had progression of his disease after a year of stability on immunotherapy. Now he has shown consistent side effects to new chemotherapy regiment including significant anorexia and dehydration (leading to hospitalization and anemia. (4) Severe anemia: Status: Acute Assessment and plan: Patient counseled on diagnosis and how this is affecting how he is feeling. He has 15 steps up to his apartment. PFSH All Active Problems (Updated 10/05/22 @ 07:58 by Kailey Meng MD) Severe anemia (Acute) Advanced care planning/counseling discussion (Acute) Palliative care encounter (Acute) Atrial fibrillation (Chronic) DVT prophylaxis (Acute) Port-A-Cath in place (Acute) BPH (benign prostatic hyperplasia) (Chronic) Essential hypertension (Acute) Hypokalemia (Acute) Hypomagnesemia (Acute) Dehydration (Acute) Hodgkins lymphoma (Chronic) Medical History (Updated 10/05/22 @ 07:58 by Kailey Meng MD) Coronary atherosclerosis Surgical History (Updated 10/03/22 @ 19:21 by Peyman Godfrey MD) History of tonsillectomy Pacemaker Status post coronary artery bypass graft (~1995) Family History (Updated 10/03/22 @ 19:24 by Peyman Godfrey MD) Father , age 54 from CAD Heart disease Paternal Grandfather , in his 50's from CAD Heart disease Social History (Updated 10/03/22 @ 19:22 by Peyman Godfrey MD) Smoking/Tobacco Use Status: Current-Occasional Tobacco Type: cigarettes Years smoked: 64 Smoking risk assessment performed?: Yes Alcohol Intake: never Drug use: Never Substance use type: does not use Exam Narrative Exam Narrative: Exceedingly pleasant elderly gentleman in no distress. Slightly pale. No dyspnea or cough. Able to move around in bed and sit up on his own unassisted. Needs to break interview for half an hour in the middle because of need to go to the bathroom. Results Last Vital Signs Temp 36.1 C L 10/04/22 12:47 Pulse 68 10/04/22 12:47 Resp 22 10/04/22 12:47 BP 103/64 10/04/22 12:47 Pulse Ox 96 10/04/22 12:47 Labs 10/04/22 10:15 10/04/22 05:20 Labs: Laboratory Results - last 24 hr 10/03/22 10/03/22 10/03/22 13:15 14:32 18:04 WBC RBC Hgb Hct MCV MCH MCHC RDW Plt Count MPV Immature Gran % Neutrophils % Lymphocytes % Monocytes % Eosinophils % Basophils % Nucleated RBC % Absolute Neutrophils Absolute Lymphocytes Absolute Monocytes Absolute Eosinophils Absolute Basophils RBC Morphology PT 11.2 H INR 1.1 APTT 28.3 VBG Lactate Sodium Potassium Chloride Carbon Dioxide Anion Gap BUN Creatinine Est GFR (CKD-EPI 2020) Glucose Calcium Magnesium Iron TIBC Transferrin % Sat Ferritin Troponin I 65 H* 63 H* Procalcitonin TSH Patient ABO/Rh Antibody Screen Crossmatch 10/03/22 10/03/22 10/04/22 18:56 18:56 05:20 WBC RBC Hgb Hct MCV MCH MCHC RDW Plt Count MPV Immature Gran % Neutrophils % Lymphocytes % Monocytes % Eosinophils % Basophils % Nucleated RBC % Absolute Neutrophils Absolute Lymphocytes Absolute Monocytes Absolute Eosinophils Absolute Basophils RBC Morphology PT INR APTT VBG Lactate 1.1 Sodium Potassium Chloride Carbon Dioxide Anion Gap BUN Creatinine Est GFR (CKD-EPI 2020) Glucose Calcium Magnesium Iron TIBC Transferrin % Sat Ferritin Troponin I 53 Procalcitonin 0.8 TSH 1.77 Patient ABO/Rh Antibody Screen Crossmatch 10/04/22 10/04/22 10/04/22 05:20 05:20 05:20 WBC 10.28 RBC 2.24 L Hgb 6.9 L* Hct 20.6 L* MCV 92 MCH 30.8 MCHC 33.5 RDW 13.7 Plt Count 51 L MPV 11.8 H Immature Gran % 1.9 Neutrophils % 79.7 Lymphocytes % 1.5 Monocytes % 15.9 Eosinophils % 0.8 Basophils % 0.2 Nucleated RBC % 0.0 Absolute Neutrophils 8.20 H Absolute Lymphocytes 0.15 L Absolute Monocytes 1.63 H Absolute Eosinophils 0.08 Absolute Basophils 0.02 RBC Morphology Normal PT INR APTT VBG Lactate Sodium 141 Potassium 3.9 Chloride 105 Carbon Dioxide 26.8 Anion Gap 9.2 BUN 23 H Creatinine 1.5 H Est GFR (CKD-EPI 2020) 46.48 Glucose 113 H Calcium 8.3 L Magnesium 2.3 Iron TIBC Transferrin % Sat Ferritin 877 H Troponin I Procalcitonin TSH Patient ABO/Rh Antibody Screen Crossmatch 10/04/22 10/04/22 10/04/22 10:15 10:15 10:15 WBC RBC Hgb 7.3 L Hct 21.7 L MCV MCH MCHC RDW Plt Count MPV Immature Gran % Neutrophils % Lymphocytes % Monocytes % Eosinophils % Basophils % Nucleated RBC % Absolute Neutrophils Absolute Lymphocytes Absolute Monocytes Absolute Eosinophils Absolute Basophils RBC Morphology PT INR APTT VBG Lactate Sodium Potassium Chloride Carbon Dioxide Anion Gap BUN Creatinine Est GFR (CKD-EPI 2020) Glucose Calcium Magnesium Iron 144 TIBC 262 Transferrin % Sat 55 Ferritin Troponin I Procalcitonin TSH Patient ABO/Rh O Positive Antibody Screen NEGATIVE Crossmatch See Detail
--- NOTE | 2022-10-04 16:21 | PT.INTREAT ---
PT Notes Visit Reasons: Dehydration,Hypokalemia,Hypomagnesemia, PRECAUTIONS: Activity as tolerated SUBJECTIVE: pt just finished blood transfusion, pt reports feeling very uncomfortable in the recliner, pt agreed to participate with therapy OBJECTIVE: ? Supine-sit: SBA? Sit-stand: SBA? Stand-sit: SBA ? GAIT? Assistive Device: 4WW ? Weight bearing: Full Assist: SBA ? Distance:? 50'x2, 100'x1? Therapeutic procedures 14388 10mins: Instruction in therapeutic exercises to develop strength and endurance, range of motion and flexibility. Provided skilled instruction in proper exercise performance: Provided skilled manual cues to facilitate proper muscle recruitment and/or movement pattern: ? Exercises: ? Seated quad setting [id number], seated hip flexion [id number], seated hip abduction/adduction [id number], seated knee flexion extension [id number], seated ankle pumping [id number].? ASSESSMENT:? Pt setup for 4WW, education with energy conservation strategies when using 4WW, brake management and DBE to help with GARCIA. PLAN: Continue with balance training, global strengthening and general conditioning for improved safety, mobility and activity tolerance. TREATMENT CODE/TIME: 3:40-4:05pm (25)? ROSI CORNEJO
[2022-10-04] MEDS: Magnesium Oxide 400 MG TAB PO (19:26)
[2022-10-04] MEDS: Potassium Chloride 10 MEQ CAPCR 20 MEQ PO (19:26)
[2022-10-05] VITALS (8 sets, daily range): BP systolic 106–122; BP diastolic 64–75; PULSE 61–94; RESP 16–22; TEMP 36–36.7; O2SAT 94–97
[2022-10-05 07:16] LABS: Abs Immature Grans 0.17 10^3/uL (0.0-0.06); Absolute Basophil Count 0.02 10^3/uL (0.0-0.2); Absolute Eosinophil Count 0.05 10^3/uL (0.0-0.7); Absolute Lymphocyte Count 0.15 10^3/uL (1.2-3.4); Absolute Monocyte Count 1.38 10^3/uL (0.1-0.8); Basophils % 0.2; Eosinophils % 0.5; HCT 22.7 % (40.0-50.0); HGB 7.7 g/dL (13.5-17.5); Immature Grans % 1.8; Lymphocytes % 1.6; MCH 31.7 pg (27.0-33.0); MCHC 33.9 % (32.0-36.0); MCV 93 fL (80-95); MPV 12.6 fL (8.0-11.0); Monocytes % 14.3; Neutrophils % 81.6; RBC 2.43 10^6/uL (4.36-5.78); RDW 13.7 % (11.8-14.1); RDW-SD 45.8 fL; WBC 9.67 10^3/uL (4.4-10.8)
[2022-10-05 07:27] LABS: Anion Gap 7.9 mmol/L (3-11); BUN 21 mg/dL (7-18); CO2 26.1 mmol/L (21.0-32.0); CREATININE 1.5 mg/dL (0.70-1.30); Calcium 8.8 mg/dL (8.5-10.1); Chloride 107 mmol/L (98-107); Estimated GFR 46.48 (mL/min/1.73m2); Glucose 106 mg/dL (74-106); Magnesium 1.8 mg/dL (1.8-2.4); Potassium 3.8 mmol/L (3.5-5.1); Sodium 141 mmol/L (136-145)
[2022-10-05 07:43] LABS: Diff Comment Diff Reviewed; Platelet Count 49 10^3/uL (130-400); RBC Morphology Normal
[2022-10-05] MEDS: Rosuvastatin 10 MG TAB 40 MG PO (08:36)
[2022-10-05] MEDS: Metoprolol 12.5 MG TAB PO ×2 (08:37→20:22)
[2022-10-05] MEDS: Potassium Chloride 10 MEQ CAPCR 20 MEQ PO ×2 (08:37→20:22)
[2022-10-05] MEDS: Aspirin E.C. 81 MG TABEC PO (08:37)
[2022-10-05] MEDS: Multivitamin TAB 1 TAB PO (08:37)
[2022-10-05] MEDS: Magnesium Oxide 400 MG TAB PO ×2 (08:37→20:22)
[2022-10-05] MEDS: Gabapentin 100 MG CAP PO (08:37)
[2022-10-05] MEDS: Acetaminophen 325 MG TAB PO ×2 (08:48→16:31)
--- NOTE | 2022-10-05 09:41 | PT.INTREAT ---
PT Notes Visit Reasons: Dehydration,Hypokalemia,Hypomagnesemia, Inpatient Physical Therapy Treatment Note [facility] Date: 10/05/22 SUBJECTIVE: Pt reports that he did not sleep well last night. He states that he had diarrhea last night as well. OBJECTIVE: Supine-sit: SBA Sit-supine: SBA Sit-stand: SBA Stand-sit: SBA GAIT Assistive Device: 4WW Weight bearing: Full Assist: SBA Distance: 50ft THEREX: Pt did not feel up to exercises today. Too tired. ASSESSMENT: Pt was very tired today. PLAN: Cont as per PT POC. TREATMENT CODE/TIME: 9:25-9:35 TA (10)
--- NOTE | 2022-10-05 10:17 | PGE_ITS ---
Date of Service Date of service: 10/05/22 Time of Service: 10:17 Assessment and Plan Assessment and plan (1) Dehydration: Status: Acute Assessment and plan: Patient was adequately rehydrated with IV fluids but has continued fluid losses with this diarrhea. Patient received 1 unit packed red cells for his anemia yesterday with an improvement in his hemoglobin to 7.7 g. We will check stool for C. difficile infection and bacterial antigens. We will start him on Metamucil to try and thicken his stools and use Imodium to slow down his diarrhea. I do not think he needs IV fluids as long as he is able to take adequate oral intake. I had hoped to discharge him today but with his ongoing diarrhea he is at increased risk becoming dehydrated again. He requires continued hospitalization until we have his diarrhea under control and he is taking adequate oral intake. Professional time spent interviewing and examining patient, discussion of goals of care with hospital team (care management, nursing and consulting professionals) was 30 minutes. (2) Hypomagnesemia: Status: Acute Assessment and plan: Potassium and magnesium have been repleted. Magnesium is up to 1.8 while his potassium is now 3.8 We will continue on oral supplementation. (3) Hypokalemia: Status: Acute Assessment and plan: Repleted (4) Atrial fibrillation: Status: Chronic Assessment and plan: unclear as to how old this dx however, he has not been on any chronic antico agulation. [facility] if he has had afib in the past. He remains in ventricular paced rhythm with underlying atrial fibrillation (5) Coronary atherosclerosis: Assessment and plan: minimal elevated troponin; will monitor, repeat EKG and check echocardiogram in the a.m. I presume this is demand ischemia and does not appear to be a plaque rupture. continue his aspirin. Echocardiogram has been done this morning results are pending (6) Essential hypertension: Status: Acute Assessment and plan: continue his home dose of metoprolol, monitor BP (7) Leukocytosis, unspecified: Status: Resolved Assessment and plan: Resolved (8) DVT prophylaxis: Status: Acute Assessment and plan: enoxaparin SC 30 mg q24h (reduced for his LORENZO), he has thrombocytopenia from his chemotherapy but as long as platelets are above 50,000 ok to use enoxaparin. Continue to monitor his platelet count if he drops below 50,000 then enoxaparin should be discontinued. Subjective Subjective Interval history since last seen: Patient still having diarrhea. No nausea vomiting no abdominal pain. Patient's had a history of diarrhea after previous chemotherapy episodes. Per palliative care doctors history with him who is found he had had previous C. difficile infection. We will get stool for C. difficile. Stool for occult blood was negative yesterday. Patient received a transfusion of 1 unit packed red cells. Hemoglobin is up to 7.7 g today. Patient denies any dyspnea cough or chest pain. Exam Narrative Exam Narrative: Obese elderly white male lying in bed in no acute distress. He states he did not sleep well last night because he was up all night with diarrhea. Denies abdominal pain or nausea or vomiting. Lungs with some fine end expiratory wheezes no rhonchi no rales Heart regular with soft systolic murmur over the apex no thrill no gallop Abdomen obese soft slightly distended nontender normal bowel sounds Lower extremities without peripheral cyanosis or edema Objective Last Vital Signs Temp 36.7 C 10/05/22 07:15 Pulse 94 H 10/05/22 07:15 Resp 16 10/05/22 07:15 BP 121/64 10/05/22 07:15 Pulse Ox 96 10/05/22 07:15 Laboratory Results - last 24 hr 10/04/22 10/04/22 10/04/22 10:15 10:15 10:15 WBC RBC Hgb 7.3 L Hct 21.7 L MCV MCH MCHC RDW Plt Count MPV Immature Gran % Neutrophils % Lymphocytes % Monocytes % Eosinophils % Basophils % Nucleated RBC % Absolute Neutrophils Absolute Lymphocytes Absolute Monocytes Absolute Eosinophils Absolute Basophils RBC Morphology Sodium Potassium Chloride Carbon Dioxide Anion Gap BUN Creatinine Est GFR (CKD-EPI 2020) Glucose Calcium Magnesium Iron 144 TIBC 262 Transferrin % Sat 55 Patient ABO/Rh O Positive Antibody Screen NEGATIVE Crossmatch See Detail 10/05/22 10/05/22 06:11 06:11 WBC 9.67 RBC 2.43 L Hgb 7.7 L Hct 22.7 L MCV 93 MCH 31.7 MCHC 33.9 RDW 13.7 Plt Count 49 L MPV 12.6 H Immature Gran % 1.8 Neutrophils % 81.6 Lymphocytes % 1.6 Monocytes % 14.3 Eosinophils % 0.5 Basophils % 0.2 Nucleated RBC % 0.0 Absolute Neutrophils 7.90 H Absolute Lymphocytes 0.15 L Absolute Monocytes 1.38 H Absolute Eosinophils 0.05 Absolute Basophils 0.02 RBC Morphology Normal Sodium 141 Potassium 3.8 Chloride 107 Carbon Dioxide 26.1 Anion Gap 7.9 BUN 21 H Creatinine 1.5 H Est GFR (CKD-EPI 2020) 46.48 Glucose 106 Calcium 8.8 Magnesium 1.8 Iron TIBC Transferrin % Sat Patient ABO/Rh Antibody Screen Crossmatch Time Spent with Patient Time Spent with Patient: 25-34 minutes Time was spent: preparing to see the patient(eg.review tests), ordering medications,tests, procedures, indepentently interpreting results, counseling the patient and care coordination
[2022-10-05] MEDS: Loperamide 2 MG CAP 4 MG PO (10:36)
[2022-10-05] MEDS: Psyllium PKT 1 EACH PO ×2 (10:37→20:22)
[2022-10-05 10:54] LABS: Lyme Ab w Rflx to Lyme Confirm Negative (Negative)
--- NOTE | 2022-10-05 12:23 | CMPROGNOTE_ITS ---
- If Service Date Differs Date of service: 10/05/22 Time of Service: 12:23 Care Management Progress Note S/O: Antwan was sitting up in his chair when CM met with him. He stated that he has had a difficult day because he didn't sleep well last night. He stated that he didn't work with PT today because he wasn't feeling up to it, but he plans to work with them tomorrow. He reported that he is generally independent, and his plan remains to return home once he is medically cleared. Per MD, he may be ready for discharge tomorrow, if his diarrhea has decreased, and his labs remain stable. CM will continue to follow. A: Antwan is an 82 year old male admitted to [facility] on 10/03/22 for dehydration, hypokalemia, hypomagnesemia. P: Anticipate Antwan will return home once medically cleared. PT is evaluating for further needs, and Palliative is consulted to discuss goals of care. He will follow up with his PCP and discharge plan of care. CM will continue to follow.
--- NOTE | 2022-10-05 14:38 | PT.INNT ---
PT Notes Visit Reasons: Dehydration,Hypokalemia,Hypomagnesemia, pt on hold this pm. I'm just too tired to do anything. Will see him in the am.
[2022-10-05] MEDS: Normal Saline Flush 10 ML SYR IVP (16:33)
[2022-10-05] MEDS: Mirtazapine 15 MG TAB PO (21:40)
[2022-10-06 06:11] LABS: Abs Immature Grans 0.16 10^3/uL (0.0-0.06); Absolute Basophil Count 0.02 10^3/uL (0.0-0.2); Absolute Eosinophil Count 0.06 10^3/uL (0.0-0.7); Absolute Lymphocyte Count 0.14 10^3/uL (1.2-3.4); Absolute Monocyte Count 1.45 10^3/uL (0.1-0.8); Absolute Neutrophil Count 7.13 10^3/uL (1.2-6.7); Basophils % 0.2; Eosinophils % 0.7; HCT 23.2 % (40.0-50.0); HGB 7.7 g/dL (13.5-17.5); Immature Grans % 1.8; Lymphocytes % 1.6; MCH 31.2 pg (27.0-33.0); MCHC 33.2 % (32.0-36.0); MCV 94 fL (80-95); MPV 12.7 fL (8.0-11.0); Monocytes % 16.2; Neutrophils % 79.5; RBC 2.47 10^6/uL (4.36-5.78); RDW-SD 47.1 fL; WBC 8.96 10^3/uL (4.4-10.8)
[2022-10-06 06:27] VITALS: BP 130/70; PULSE 89; RESP 20; TEMP 36.7; O2SAT 93
[2022-10-06 06:34] LABS: Anion Gap 7.9 mmol/L (3-11); BUN 19 mg/dL (7-18); CO2 27.1 mmol/L (21.0-32.0); CREATININE 1.4 mg/dL (0.70-1.30); Calcium 8.5 mg/dL (8.5-10.1); Chloride 106 mmol/L (98-107); Estimated GFR 50.49 (mL/min/1.73m2); Glucose 104 mg/dL (74-106); Magnesium 1.7 mg/dL (1.8-2.4); Potassium 4.3 mmol/L (3.5-5.1); Sodium 141 mmol/L (136-145)
[2022-10-06 06:59] LABS: Diff Comment RBC Morph Reviewed
[2022-10-06 07:00] LABS: Platelet Count 54 10^3/uL (130-400); Poikilocytes 1+
[2022-10-06 09:50] VITALS: BP 127/73; PULSE 98
[2022-10-06] MEDS: Potassium Chloride 10 MEQ CAPCR 20 MEQ PO (09:54)
[2022-10-06] MEDS: Gabapentin 100 MG CAP PO (09:54)
[2022-10-06] MEDS: Rosuvastatin 10 MG TAB 40 MG PO (09:54)
[2022-10-06] MEDS: Magnesium Oxide 400 MG TAB 800 MG PO (09:54)
[2022-10-06] MEDS: Aspirin E.C. 81 MG TABEC PO (09:54)
[2022-10-06] MEDS: Metoprolol 12.5 MG TAB PO (09:54)
[2022-10-06] MEDS: Multivitamin TAB 1 TAB PO (09:54)
[2022-10-06] MEDS: Acetaminophen 325 MG TAB PO (09:59)
[2022-10-06] MEDS: Psyllium PKT 1 EACH PO (10:29)
--- NOTE | 2022-10-06 12:57 | PT.INTREAT ---
Date of service: 10/06/22 Time of Service: 10:26 PT Notes Visit Reasons: Dehydration,Hypokalemia,Hypomagnesemia, Physical Therapy Inpatient Treatment Note [facility] [place], [place] PRECAUTIONS: On chemotherapy for Hodgkin's Lymphoma. Activity as tolerated SUBJECTIVE: Feels much better. Diarrhea episodes have resolved. Agreeable to continuing PT services today. Adds that last night was better for him than the previous one. OBJECTIVE: ? ? Denies pain. Seated on bedside chair. ? BED MOBILITY: Supine-sit: Independent? Sit-stand: Independent? Stand-sit: Independent ? GAIT? Assistive Device: 4WW ? Weight bearing: FWB Assist: Supervision? Distance:? 100 feet + 150 feet + 50 feet Remarks: Minimal cues given for more erect posture using 4WW. Has good handle of the 4WW, knows when to use breaks and to safely park walker prior to sitting down. Minimal shortness of breath with oxygen saturation range of 90% to 95% on RA. ? THERA EX: Instruction in therapeutic exercises to develop strength and endurance, range of motion and flexibility. Provided skilled instruction in proper exercise performance: Provided skilled manual cues to facilitate proper muscle recruitment and/or movement pattern:? Exercises: ? ? HEP Instrcution: - Standing Heel Raise with Support? - 1 x daily - 7 x weekly - 1 sets - 10 reps - 5 hold - Standing Partial Squat? - 1 x daily - 7 x weekly - 1 sets - 10 reps - 5 hold - Standing Hip Abduction with Counter Support? - 1 x daily - 7 x weekly - 1 sets - 10 reps - 5 hold - Sit to Stand with Counter Support? - 1 x daily - 7 x weekly - 1 sets - 10 reps - 5 hold - Seated Ankle Pumps? - 1 x daily - 7 x weekly - 1 sets - 10 reps - 5 hold Access Code: [email or web address] URL: [email or web address] Date: 10/06/2022 Prepared by: Rachel Broderick ? ASSESSMENT:? Patient demosntrates good 4WW management, is agreeable to contiuing standing level exercises at home, and is aware of when to rest/stop to minimize SOB. He will benefit from PT services to progress/maitian mobility level and minimize adverse effects of ongoing chemotherapy. PLAN: Continue with balance training, global strengthening, and general conditioning for improved safety, mobility and activity tolerance. DISCHARGE RECOMMENDATIONS: [] ? Home with no services [] [X] ? Home with services.? Patient will benefit from home health PT services in order to progress mobility level using least restrictive assistive ambulatory device, assess home safety, identify additional equipment needs, and establish a functional maintenance program that will increase ability of patient to remain at home. [] ? Home with outpatient PT [] [] ? SNF for continued rehabilitation [] [] ? Vacuum Metalizer Operator Care [] [] ? SNF versus LTC based on ability to participate and progress [] TREATMENT CODE/TIME: 65523 x 15 minutes, 24811 x 12 minutes beginning at 10:26 AM.
--- NOTE | 2022-10-06 13:30 | PT.INTREAT ---
Date of service: 10/06/22 Time of Service: 13:10 PT Notes Visit Reasons: Dehydration,Hypokalemia,Hypomagnesemia, Inpatient Physical Therapy Treatment Note [facility] Date: 10/06/22 PRECAUTIONS: On chemotherapy for Hodgkin's Lymphoma.? Activity as tolerated SUBJECTIVE: Patient found sleeping, wakes easily, agreeable to therapy, reports being tired but eager to go home. OBJECTIVE: PAIN: denies BED MOBILITY/TRANSFERS Rolling L/R: standby assist Supine-sit: standby assist Sit-supine: standby assist Sit-stand: standby assist Stand-sit: standby assist Bed-Chair: standby assist Chair-bed: standby assist GAIT Assistive Device: Rollator Weight bearing: Full Assist: CGA Distance: 150 Deviation: Minimal cues given for more erect posture using 4WW.? Has good handle of the 4WW,? knows when to use breaks and to safely park walker prior to sitting down.? Minimal shortness of breath with oxygen saturation range of 90% to 95% on RA.? STAIRS: Ascends and descends 10 stairs with bilateral railings, CGA. Becomes noteably short of breath with O2 SAT 89-91, recovers in under 2 minutes to 94. ASSESSMENT: Patient demosntrates good 4WW management,? is agreeable to contiuing standing level exercises at home,? and is aware of when to rest/stop to minimize SOB.? He will benefit from PT services to progress/maitian mobility level and minimize adverse effects of ongoing chemotherapy. PLAN: Patient expected to discharge home with home health PT services this afternoon. TREATMENT CODE/TIME: 12681 Gait 17 minutes
--- NOTE | 2022-10-06 14:33 | DSE_ITS ---
Date of service: 10/06/22 Time of Service: 14:33 DS: Diagnosis Discharge Diagnosis (1) Dehydration: Status: Resolved Asessment and Plan: Patient presented with nausea and diarrhea but no vomiting no abdominal pain. BUN/creatinine were elevated at 27 1.7 on admission and with IV fluid hydration declined down to 19 and 1.4. (2) Hypomagnesemia: Status: Acute Asessment and Plan: As it was low at 1.1 on admission and was corrected with IV and oral magnesium supplementation and peaked at 2.3 before drifting down to 1.7 at discharge. Patient will be discharged home on magnesium oxide 800 mg once a day. Repeat magnesium level is recommended in 1 week. (3) Hypokalemia: Status: Acute Asessment and Plan: Patient presented w/ low potassium at 3.2 this was corrected with IV and oral supplementation and at discharge potassium levels 4.3. (4) Atrial fibrillation: Status: Chronic Asessment and Plan: Patient's underlying rhythm is atrial fibrillation. He was monitored on telemetry however he remains ventricularly paced at a controlled rate. He remains on metoprolol 12.5 mg twice a day. Patient was not on anticoagulation on admission and was not discharged on any anticoagulation. Is felt that the decision to anticoagulate should be shared between his oncologist and his primary care provider or window treatment installer. (5) Coronary atherosclerosis: (6) Essential hypertension: Status: Acute (7) Leukocytosis, unspecified: Status: Resolved Asessment and Plan: Transient leukocytosis that resolved without antibiotics. Discharge Plan Disposition Patient Disposition: Home W/Home Health Services Condition: Improving Discharge Details Reason For Visit: Dehydration,Hypokalemia,Hypomagnesemia, Admit Date/Time: 10/05/22 11:17 Admit Provider: Peyman Godfrey Attending Provider: Peyman Godfrey Primary Care Provider: Moo Mora Hospital Course Hospital Course: 82-year-old male with history of Hodgkin's lymphoma currently undergoing chemotherapy treatment with brentuximab and Bendamustine last dose on 09/22/2022 and 09/23/2022 associated with loss of appetite decreased oral intake. Came in with diarrhea nausea but no vomiting and generalized weakness and fatigue. Evaluation included chest x-ray and CT scan of the chest. Chest x-ray demonstrated moderate size unilateral right pleural effusion and a right-sided Port-A-Cath with distal tip in the right atrium. CT scan showed a prominent malignant appearing mass in the right suprahilar region following right upper lobe and mediastinum and surrounding a nonoccluded azygous vein. He has moderate to large ipsilateral pleural effusion. Lab work-up showed him to be anemic with a hemoglobin of 8.4 g hematocrit 24% a white count of 14,600 and platelet count 64,000. Overnight his H&H dropped to 6.9 and 20.6 and platelets went down to 51,000. White count went down to 10,280. Patient was typed and crossmatch and transfuse 1 unit packed red cells which brought his hemoglobin up to 7.7 g prior to discharge. Chemistry profile demonstrated hypokalemia and hypomagnesemia with a potassium of 3.2 magnesium 1.1. BUN and creatinine are elevated at 27 1.7. Patient received IV fluids which brought his BUN down to 19 and creatinine down to 1.4. He was given parenteral and oral magnesium and potassium. Potassium was corrected and at discharge his potassium was 4.3. Magnesium came up transiently to 2.3 and then drifted down to 1.7 at discharge. Stool studies for C. difficile and bacterial antigens was ordered however his diarrhea has ceased with Metamucil and Imodium. Physical therapy was consulted they evaluated patient did well with the front wheel walker. They recommend home PT upon discharge. Patient was discharged in markedly improved condition. He should have follow-up lab work including CBC BMP and magnesium next week. Labs to be ordered by primary care provider. Home Meds and New Rx's Prescriptions: New magnesium oxide 500 mg tablet 500 mg PO DAILY Qty: 30 0RF potassium chloride 10 mEq capsule, extended release 10 meq PO DAILY Qty: 30 0RF Continued prochlorperazine maleate 10 mg tablet 10 mg PO Q6H PRN Patient Comments: TAKE ONE TABLET BY MOUTH EVERY 6 HOURS NEEDED FOR NAUSEA aspirin 81 mg Tablet,Delayed Release (Dr/Ec) 81 mg PO DAILY acetaminophen 500 mg Tablet 1,000 mg PO Q6H PRN niacinamide 500 mg tablet 500 mg PO BID multivitamin Capsule 1 cap PO DAILY rosuvastatin 40 mg tablet 40 mg PO DAILY metoprolol tartrate 25 mg tablet 12.5 mg PO BID gabapentin 100 mg Tablet 100 mg PO DAILY loratadine 10 mg tablet 10 mg PO QDAY Patient Comments: TAKE ONE TABLET BY MOUTH EVERY DAY FOR A FEW DAYS AFTER CHEMO TO BLOCK BONE PAIN FROM WBC GROWTH FACTOR Discharge Instructions Instructions: Dehydration (DC), Hypokalemia (DC), Acute Diarrhea (GEN), Hypomagnesemia (DC), Anemia (DC) Additional Instructions: You were admitted for severe dehydration and were found to be anemic and to have electrolyte problems including low potassium and magnesium. You had diarrhea which has since resolved w/ some imodium. Your potassium and magnesium were corrected w/ intravenous and oral replacements and your anemia was treated w/ one unit of blood transfusion. You should have your blood count and electrolytes rechecked either by your primary care provider or your oncologist. This should be done in the next week. Stand Alone Forms: Nursing Discharge Form Referrals: [facility] Cardiology [Other] - 10/28/22 (Cardio Echo at 08:30 Cardio Device placement at 10:00) Moo Mora [Primary Care Provider] - (Office will call you with appointment time and date.) Activity:: Activity as Tolerated Equipment/Supplies:: No Equipment Needed Diet:: Normal Diet Discharge Orders Discharge Orders: Discharge Order (Routine); Ordered 10/06/22 Ordered By: Peyman Godfrey Discharge Data Discharge Date/Time-TO BE ENTERED AT DEPARTURE: 10/06/22 15:25 DS: Summary Time Spent with Patient providing and/or coordinating discharge services: Less than 30 minutes Status at Discharge Functional status at discharge: uses cane/walker Overall status at discharge: patient is back to baseline Mental Status: mental status grossly normal Speech and Movement: speech and movement normal Mood: congruent mood Affect: normal affect Exam Narrative Exam Narrative: Anwtan is alert and oriented x3. No nausea vomiting diarrhea has ceased. Lungs are clear to auscultation Heart is regular rate and rhythm Abdomen soft nontender Extremities without peripheral edema. Psych Mental Status: mental status grossly normal Speech and Movement: speech and movement normal Mood: congruent mood Affect: normal affect DS: Data Vitals/I&O Vitals and I&O: Vital Signs Temperature 36.7 C 10/06/22 06:27 Temperature Source Tympanic 10/06/22 06:27 Pulse 98 H 10/06/22 09:50 Pulse Rhythm Regular 10/06/22 10:30 Pulse 83 10/03/22 15:20 Respiratory Rate 20 10/06/22 06:27 Respiratory Effort Normal 10/06/22 10:30 Respiratory Depth Normal 10/06/22 10:30 Respiratory Pattern Normal 10/06/22 10:30 Blood Pressure 127/73 10/06/22 09:50 Blood Pressure Mean 79 10/03/22 13:31 Blood Pressure Position Sitting 10/03/22 11:03 Pulse Oximetry 93 10/06/22 06:27 Oxygen Delivery Method Room Air 10/06/22 06:27 Oxygen Flow Rate 0 10/06/22 06:27 Pain Level 4 10/06/22 09:59 Intake & Output 10/05/22 10/06/22 10/06/22 23:59 11:59 23:59 Intake Total 360 / 360 Output Total 200 / 200 200 / 200 Balance 160 / 160 -200 / -200 Weight 79.2 kg Intake: Oral 360 / 360 Output: Urine 200 / 200 200 / 200 Other: Urine Color Yellow Yellow Urine Appearance Clear Clear Voiding Methods Toilet Data Completed and Pending Labs on day of discharge: Labs from last 24 hours 10/06/22 10/06/22 10/03/22 05:23 05:23 13:15 WBC 8.96 RBC 2.47 L Hgb 7.7 L Hct 23.2 L MCV 94 MCH 31.2 MCHC 33.2 RDW 14.0 Plt Count 54 L MPV 12.7 H Immature Gran % 1.8 Neutrophils % 79.5 Lymphocytes % 1.6 Monocytes % 16.2 Eosinophils % 0.7 Basophils % 0.2 Nucleated RBC % 0.0 Absolute Neutrophils 7.13 H Absolute Lymphocytes 0.14 L Absolute Monocytes 1.45 H Absolute Eosinophils 0.06 Absolute Basophils 0.02 RBC Morphology See Below Poikilocytosis 1+ Sodium 141 Potassium 4.3 Chloride 106 Carbon Dioxide 27.1 Anion Gap 7.9 BUN 19 H Creatinine 1.4 H Est GFR (CKD-EPI 2020) 50.49 Glucose 104 Calcium 8.5 Magnesium 1.7 L Lyme Disease Antibody Negative 10/04/22 10:40 Stool Stool Occult Blood (SILVIO) - Pending Preliminary micro results at discharge 10/03/22 13:30 Blood Culture - Preliminary Blood NO GROWTH 48 HOURS 10/03/22 13:15 Blood Culture - Preliminary Blood NO GROWTH 48 HOURS 10/04/22 10:40 Stool Occult Blood (SILVIO) - Pending Stool PFSH All Active Problems (Updated 10/06/22 @ 16:16 by Peyman Godfrey MD) Severe anemia (Acute) Advanced care planning/counseling discussion (Acute) Palliative care encounter (Acute) Atrial fibrillation (Chronic) DVT prophylaxis (Acute) Port-A-Cath in place (Acute) BPH (benign prostatic hyperplasia) (Chronic) Essential hypertension (Acute) Hypokalemia (Acute) Hypomagnesemia (Acute) Hodgkins lymphoma (Chronic) Medical History Coronary atherosclerosis Surgical History History of tonsillectomy Pacemaker Status post coronary artery bypass graft (~1995) Family History Father , age 54 from CAD Heart disease Paternal Grandfather , in his 50's from CAD Heart disease Social History Smoking/Tobacco Use Status: Current-Occasional Tobacco Type: cigarettes Years smoked: 64 Smoking risk assessment performed?: Yes Alcohol Intake: never Drug use: Never Substance use type: does not use Time Spent with Patient Time Spent with Patient: <45 minutes Time was spent: preparing to see the patient(eg.review tests), ordering medications,tests, procedures, counseling the patient and care coordination
--- NOTE | 2022-10-06 14:33 | PDOC.HHF2F ---
Home Health Referral Home Health Orders Clinical synopsis of why skilled professionals are needed: dehydration, anemia, general weakness. patient needs home physical therapy Medical diagnosis necessitation home health referral: as above Physical Therapist: Check all that apply Increase strength & endurance for safe mobility at home: Ordered To design/establish home maintenance program: Ordered Home Bound Status Requires the aid of supportive device (check all that apply): Walker Patient has a condition such that leaving home is medically contraindicated (Describe): generalized weakness and anemia and recent dehydration and electrolyte imbalance increases his risk of falls, necessitating home P.T. Describe why leaving home would require a considerable and taxing effort: Requires frequent rest periods and Safety Concerns: describe (gait instability w/ increased risk for falls) Encounter Date and Reason: I certify that a FTF encounter for this patient was performed on October 06, 2022 and that such encounter was related to the primary reason the patient requires home health services. The encounter was conducted in the following manner: By me as the certifying physician, NURSING SECRETARY, PA or By an inpatient physician, NURSING SECRETARY or PA during an inpatient stay who communicated findings to me, Certification And Authentication I certify that I composed the above information based on my clinical judgment relating to this patient's medical condition and, if applicable, clinical findings communicated to me by the NPP or inpatient physician who performed the FTF encounter. Name of Provider that will be monitoring home health services: Moo Mora
[2022-10-06 14:50] VITALS: BP 125/7; PULSE 92; RESP 24; TEMP 36.5; O2SAT 94
[2022-10-06] MEDS: Heparin 500 UNITS/5 ML SYRINGE IV (15:10)
--- NOTE | 2022-10-06 15:13 | PDOC.CMDIS ---
- If Service Date Differs Date of service: 10/06/22 Time of Service: 15:13 LACE Index Scoring Tool - Questions: Length of Stay (in days): 1 Acuity (Admit via E.D.?): Yes Comorbidities: Any Tumor E.D. Visits: 1 - Answers: Total Score: 7 Risk of Readmission: Low Risk Care Management Discharge Reason for Hospitalization: Dehydration, hypokalemia, hypomagnesemia, elevated troponin Discharge Plan: Antwan will return home today with new orders for HH PT. He was driven home via private vehicle by his brother. He will follow up with his PCP and discharge plan of care. Patient/Family Education Needs: Review discharge instructions and limitations, discussion of self care needs including ask me three. Services Needed at Discharge: Home Health Care Services (HH PT)
[2022-10-06 19:53] LABS: Anaplasma phagocytophilum Negative (Negative); B. miyamotoi PCR Negative (Negative); Babesia divergens/MO-1 Negative (Negative); Babesia duncani Negative (Negative); Babesia microti Negative (Negative); Ehrlichia chaffeensis Negative (Negative); Ehrlichia ewingii/canis Negative (Negative); Ehrlichia muris eauclairensis Negative (Negative)
--- NOTE | 2022-10-07 09:05 | INDS_ITS ---
Date of service: 10/06/22 PT Notes Visit Reasons: Dehydration,Hypokalemia,Hypomagnesemia, Physical Therapy Inpatient Discharge Summary Date: 10/06/2022 Dates of Service: 10/04/2022 through 10/06/2022 This is a clinical summary of care provided for the duration of dates listed above. No charge was made in the completion of this documentation. Referring Doctor:? July Parker MD PT Orders: PT CONSULT: Fall Safety assessment.? Safety consult for D/C Precautions: Fall. Standard. Activity as tolerated. Patient Profile/Admitting Diagnosis:? Antwan is an 82-year-old male with Hodgkin's lymphoma and is currently on chemotherapy who presented to the ED on 10/03/2022 due to worsening weakness.? Patient is admitted for management of dehydration, hypomagnesemia, hypokalemia, atrial fibrillation, CAD, and essential hypertension.? Recently completed third chemotherapy session the first week of September 2022. PMHX: All Active Problems?(Updated 10/03/22 @ 19:33 by Peyman Godfrey MD) Atrial fibrillation (Chronic) DVT prophylaxis (Acute) Leukocytosis, unspecified (Acute) Port-A-Cath in place (Acute) BPH (benign prostatic hyperplasia) (Chronic) Essential hypertension (Acute) Hypokalemia (Acute) Hypomagnesemia (Acute) Dehydration (Acute) Hodgkins lymphoma (Chronic) Medical History?(Updated 10/03/22 @ 19:33 by Peyman Godfrey MD) Coronary atherosclerosis Surgical History?(Updated 10/03/22 @ 19:21 by Peyman Godfrey MD) History of tonsillectomy Pacemaker Status post coronary artery bypass graft (~1995) Social History/Home Situation: Lives alone in a private home with 3 steps to enter with rails on both sides.? Independent with all mobility ADLs without assistive device prior to admission.? Equipment Owned/DME: None Subjective: NT. See most recent CAREER GUIDANCE TECHNICIAN notes. Objective: General Observation: NT. See most recent CAREER GUIDANCE TECHNICIAN notes. Mental Status: NT. See most recent CAREER GUIDANCE TECHNICIAN notes. Pain: NT. See most recent CAREER GUIDANCE TECHNICIAN notes. Vital Signs: NT. See most recent CAREER GUIDANCE TECHNICIAN notes. ROM: Right Upper Extremity: ? Shoulder Flexion WFL. Shoulder abduction WFL. Elbow flexion WFL. Wrist flexion WFL. Functional opening and closing of hand WFL. Left Upper Extremity:? Shoulder Flexion WFL. Shoulder abduction WFL. Elbow flexion WFL. Wrist flexion WFL. Functional opening and closing of hand WFL. Right Lower Extremity: Hip flexion WFL. Hip abduction WFL. Knee flexion WFL. Ankle dorsiflexion WFL. Ankle plantarflexion WFL. Left Lower Extremity: Hip flexion WFL. Hip abduction WFL. Knee flexion WFL. Ankle dorsiflexion WFL. Ankle plantarflexion WFL. Strength: Right Upper Extremity: Shoulder flexors 4-/5. Shoulder abductors 4-/5. Elbow flexors 4/5. Elbow extensors 4/5. Web Site Designer strong. Left Upper Extremity: Shoulder flexors 4-/5. Shoulder abductors 4-/5. Elbow flexors 4/5. Elbow extensors 4/5. Web Site Designer strong. Right Lower Extremity: Hip flexors 4-/5. Hip abductors 4-/5. Knee flexors 4-/5. Knee extensors 4-/5. Ankle dorsiflexors 4-/5. Ankle plantarflexors 4-/5. Left Lower Extremity: Hip flexors 4-/5. Hip abductors 4-/5. Knee flexors 4-/5. Knee extensors 4-/5. Ankle dorsiflexors 4-/5. Ankle plantarflexors 4-/5. BED MOBILITY/TRANSFERS? Rolling L/R: standby assist Supine-sit: standby assist? Sit-supine: standby assist? Sit-stand: standby assist? Stand-sit: standby assist ? Bed-Chair: standby assist ? Chair-bed: standby assist ? GAIT? Assistive Device: Rollator? Weight bearing: Full Assist: CGA ? Distance:? 150 ? Deviation: Minimal cues given for more erect posture using 4WW.? Has good handle of the 4WW,? knows when to use breaks and to safely park walker prior to sitting down.? Minimal shortness of breath with oxygen saturation range of 90% to 95% on RA.? STAIRS: Ascends and descends 10 stairs with bilateral railings, CGA. Becomes noteably short of breath with O2 SAT 89-91, recovers in under 2 minutes to 94.? Balance: Static Sitting: Normal Dynamic Sitting: Normal Static Standing: Fair Dynamic Standing: Fair Special Tests: Mobility Limitations Standardized Measure [facility]-PAC 6 clicks Basic Mobility Inpatient Short Form: Raw Score: 23? CMS Score: 11% deficit? ? ? Assessment: Patient presents with clinical signs and symptoms consistent with current/admitting diagnoses that have resulted to mobility limitations, gait instability, generalized weakness, and overall ADL decline as demonstrated by the following impairment level findings: 1.? Decreased strength to B UE/LE major muscle groups 2.? Impaired sitting/standing balance 3.? Impaired activity tolerance 4.? Shortness of breath Impairments are contributing to the following functional limitations: 1.? Difficulty with ambulation without assistive device and physical assistance 2.? Increased completion time for mobility ADL performance 3.? Increased risk for falls 4.? Difficulty with managing steps alone safely Goals: Goals X1 week 1. Supine-Sit independent NOT MET, CONTINUE WITH HH PT 2. Sit-Supine independent NOT MET, CONTINUE WITH HH PT 3. Sit-Stand independent NOT MET, CONTINUE WITH HH PT 4. Stand-Sit independent with 4WW NOT MET, CONTINUE WITH HH PT 5. Bed-Chair independent with 4WW NOT MET, CONTINUE WITH HH PT 6. Chair-Bed independent with 4WW NOT MET, CONTINUE WITH HH PT 7. Independent gait on level surface with use of 4WW for at least 300 feet without report of pain nor dyspnea NOT MET, CONTINUE WITH HH PT 8. Independent stair negotiation while holding onto B rails for at least 5 steps without report of pain nor dyspnea NOT MET, CONTINUE WITH HH PT 9. Independent with home exercise program NOT MET, CONTINUE WITH HH PT 10. Good static and dynamic standing balance/tolerance NOT MET, CONTINUE WITH HH PT DISCHARGE RECOMMENDATIONS: [] ? Home with no services [] [X] ? Home with services.? Patient will benefit from home health PT services in order to progress mobility level using least restrictive assistive ambulatory device, assess home safety, identify additional equipment needs, and establish a functional maintenance program that will increase ability of patient to remain at home. [] ? Home with outpatient PT [] [] ? SNF for continued rehabilitation [] [] ? Care Home Care [] [] ? SNF versus LTC based on ability to participate and progress [] TREATMENT CODE/TIME: NC Thank you for the opportunity to participate in the care of this patient. Rachel Broderick PT, DPT, CLT [facility] [place], [place]
== END 2022-10-06 15:25 | disposition home health service (06) | DRG 641 ==
LOC: ER 17:47 → MS 18:16
PROVIDERS: Physician Assistant; Admitting Provider Internal Medicine; Emergency Provider Physician Assistant; PCP Family Medicine; Visit Provider Internal Medicine
DX: E86.0 Dehydration (principal); N17.9 Acute kidney failure, unspecified; C81.90 Hodgkin lymphoma, unspecified, unspecified site; J90 Pleural effusion, not elsewhere classified; D69.59 Other secondary thrombocytopenia; E83.42 Hypomagnesemia; E87.6 Hypokalemia; I48.91 Unspecified atrial fibrillation; I25.10 Atherosclerotic heart disease of native coronary artery without angina pectoris; D72.829 Elevated white blood cell count, unspecified; I10 Essential (primary) hypertension; D64.9 Anemia, unspecified; Z95.1 Presence of aortocoronary bypass graft; T45.1X5A Adverse effect of antineoplastic and immunosuppressive drugs, initial encounter; R53.1 Weakness; Z95.828 Presence of other vascular implants and grafts; N40.0 Benign prostatic hyperplasia without lower urinary tract symptoms; F17.210 Nicotine dependence, cigarettes, uncomplicated; R19.7 Diarrhea, unspecified
CPT/HCPCS: 36410; 36415; 71275; 80048; 80053; 84145; 86850; 86900; 86901; 86920; 87040; 87635; 87798; 93005; 96360; 96361; 97110; 97116; 97162; 97530; 99285; 71046; 81003; 81015; 82270; 82728; 83540; 83550; 83605; 83735; 84443; 84484; 85014; 85018; 85025; 85379; 85610; 85730; 86618; 93010; 93306; 99223; 99232; 99238; G0378; J1650; J3475; J3480; J3490; P9016

== ENCOUNTER 2022-10-13 11:00 | Outpatient (RCR) | payer MEDICARE, OTHER, SELFPAY ==
[2022-09-22] MEDS: Normal Saline Flush 10 ML SYR IVP (08:37)
[2022-09-22 08:40] LABS: Abs Immature Grans 0.31 10^3/uL (0.0-0.06); Absolute Basophil Count 0.03 10^3/uL (0.0-0.2); Absolute Eosinophil Count 0.01 10^3/uL (0.0-0.7); Absolute Lymphocyte Count 0.43 10^3/uL (1.2-3.4); Absolute Monocyte Count 2.15 10^3/uL (0.1-0.8); Absolute Neutrophil Count 7.25 10^3/uL (1.2-6.7); Basophils % 0.3; Eosinophils % 0.1; HCT 30.3 % (40.0-50.0); HGB 10.3 g/dL (13.5-17.5); Lymphocytes % 4.2; MCH 31.2 pg (27.0-33.0); MCV 92 fL (80-95); MPV 10.7 fL (8.0-11.0); Monocytes % 21.1; Neutrophils % 71.3; Platelet Count 141 10^3/uL (130-400); RDW 12.9 % (11.8-14.1); RDW-SD 42.9 fL; WBC 10.18 10^3/uL (4.4-10.8)
[2022-09-22 08:44] LABS: ESR 45 mm/hr (0-20)
[2022-09-22 08:59] LABS: ALT 15 U/L (16-63); AST 24 U/L (15-37); Albumin 3.2 g/dL (3.4-5.0); Alkaline Phosphatase 88 U/L (46-116); Anion Gap 9.7 mmol/L (3-11); BUN 13 mg/dL (7-18); Bilirubin, Total 0.5 mg/dL (0.2-1.0); CO2 29.3 mmol/L (21.0-32.0); CREATININE 1.4 mg/dL (0.70-1.30); Calcium 8.6 mg/dL (8.5-10.1); Chloride 106 mmol/L (98-107); Estimated GFR 50.49 (mL/min/1.73m2); Glucose 132 mg/dL (74-106); Potassium 3.5 mmol/L (3.5-5.1); Sodium 145 mmol/L (136-145); Total Protein 7.5 g/dL (6.4-8.2)
[2022-09-22 09:00] LABS: Diff Comment Agrees w/ Instrument; RBC Morphology Normal
[2022-10-13] MEDS: Normal Saline Flush 10 ML SYR IVP (09:21)
[2022-10-13 09:36] LABS: Abs Immature Grans 0.16 10^3/uL (0.0-0.06); Absolute Basophil Count 0.01 10^3/uL (0.0-0.2); Absolute Eosinophil Count 0.01 10^3/uL (0.0-0.7); Absolute Monocyte Count 1.85 10^3/uL (0.1-0.8); Absolute Neutrophil Count 5.71 10^3/uL (1.2-6.7); Basophils % 0.1; Eosinophils % 0.1; HGB 8.3 g/dL (13.5-17.5); Lymphocytes % 2.5; MCH 32.5 pg (27.0-33.0); MCHC 34.6 % (32.0-36.0); MCV 94 fL (80-95); MPV 11.5 fL (8.0-11.0); Monocytes % 23.3; Platelet Count 49 10^3/uL (130-400); RBC 2.55 10^6/uL (4.36-5.78); RDW 18.6 % (11.8-14.1); RDW-SD 55.2 fL; WBC 7.94 10^3/uL (4.4-10.8)
[2022-10-13 09:38] LABS: ESR 20 mm/hr (0-20)
[2022-10-13 09:49] LABS: ALT 15 U/L (16-63); AST 32 U/L (15-37); Albumin 3.3 g/dL (3.4-5.0); Alkaline Phosphatase 93 U/L (46-116); Anion Gap 7.4 mmol/L (3-11); BUN 23 mg/dL (7-18); Bilirubin, Total 0.7 mg/dL (0.2-1.0); CO2 26.6 mmol/L (21.0-32.0); CREATININE 1.8 mg/dL (0.70-1.30); Calcium 8.9 mg/dL (8.5-10.1); Chloride 100 mmol/L (98-107); Estimated GFR 37.35 (mL/min/1.73m2); Glucose 120 mg/dL (74-106); Sodium 134 mmol/L (136-145); Total Protein 7.2 g/dL (6.4-8.2)
[2022-10-13 09:59] LABS: Anisocytosis 3+; Polychromasia Present
[2022-10-13 10:00] LABS: Diff Comment Diff Reviewed
[2022-10-13 10:03] LABS: Macrocytosis 1+; Microcytosis 2+
[2022-10-13 12:02] VITALS: BP 114/72; PULSE 77; RESP 17; TEMP 37.1; O2SAT 98
[2022-10-13 12:17] VITALS: BP 111/68; PULSE 64; RESP 17; TEMP 37.4; O2SAT 95
[2022-10-13 12:30] VITALS: BP 114/70; PULSE 67; RESP 16; TEMP 38; O2SAT 94
[2022-10-13 13:00] VITALS: BP 96/47; PULSE 66; RESP 17; TEMP 37.5; O2SAT 96
[2022-10-13 13:50] VITALS: BP 117/66; PULSE 66; RESP 17; TEMP 37.6; O2SAT 94
== END 2022-10-16 23:59 | disposition home or self-care (01) ==
LOC: INF 11:00
PROVIDERS: PCP Family Medicine; Visit Provider Internal Medicine Hematology & Oncology
DX: C81.12 Nodular sclerosis Hodgkin lymphoma, intrathoracic lymph nodes (principal); Z45.2 Encounter for adjustment and management of vascular access device
CPT/HCPCS: 36430; 36591; 80053; 85652; 86850; 86900; 86901; 86920; 85025; P9016

== ENCOUNTER 2022-10-27 07:31 | Outpatient (RCR) | payer MEDICARE, OTHER, SELFPAY ==
[2022-10-17 00:05] VITALS: BP 117/66; PULSE 66; RESP 17; TEMP 37.6
[2022-10-27] VITALS (8 sets, daily range): BP systolic 99–125; BP diastolic 62–73; PULSE 60–66; RESP 18–19; TEMP 36.9–37.3; O2SAT 97–100
[2022-10-27] MEDS: Normal Saline Flush 10 ML SYR IVP ×2 (07:37→09:56)
[2022-10-27 07:59] LABS: HCT 23.7 % (40.0-50.0); HGB 7.6 g/dL (13.5-17.5); MCH 31.7 pg (27.0-33.0); MCHC 32.1 % (32.0-36.0); MCV 99 fL (80-95); MPV 10.7 fL (8.0-11.0); RDW 20.8 % (11.8-14.1); RDW-SD 73.2 fL
[2022-10-27 08:05] LABS: ESR 22 mm/hr (0-20)
[2022-10-27 08:16] LABS: Absolute Lymphocyte Count 0.06 10^3/uL (1.2-3.4); Absolute Monocyte Count 0.28 10^3/uL (0.1-0.8); Absolute Neutrophil Count 1.54 10^3/uL (1.2-6.7); Bands % 3; Diff Comment Manual Differential; Platelet Count 92 10^3/uL (130-400)
[2022-10-27 08:17] LABS: Anisocytosis 2+; Poikilocytes 1+; Polychromasia Present
[2022-10-27 08:18] LABS: ALT 19 U/L (16-63); AST 32 U/L (15-37); Albumin 2.9 g/dL (3.4-5.0); Alkaline Phosphatase 68 U/L (46-116); Anion Gap 8.5 mmol/L (3-11); BUN 27 mg/dL (7-18); Bilirubin, Total 0.4 mg/dL (0.2-1.0); CO2 26.5 mmol/L (21.0-32.0); CREATININE 1.6 mg/dL (0.70-1.30); Calcium 8.7 mg/dL (8.5-10.1); Chloride 103 mmol/L (98-107); Estimated GFR 43.02 (mL/min/1.73m2); Glucose 105 mg/dL (74-106); Potassium 4.5 mmol/L (3.5-5.1); Sodium 138 mmol/L (136-145); Total Protein 6.7 g/dL (6.4-8.2)
[2022-10-27 08:21] LABS: WBC 1.97 10^3/uL (4.4-10.8)
[2022-10-27] MEDS: Heparin 500 UNITS/5 ML SYRINGE IVP (09:57)
[2022-10-27 10:25] LABS: Folate 11.8 ng/mL (8.6-20.0); Vitamin B12 1854 pg/mL (193-986)
== END 2022-11-16 23:59 | disposition home or self-care (01) ==
LOC: INF 07:31
PROVIDERS: PCP Family Medicine; Visit Provider Internal Medicine Hematology & Oncology
DX: C81.12 Nodular sclerosis Hodgkin lymphoma, intrathoracic lymph nodes (principal); Z45.2 Encounter for adjustment and management of vascular access device
CPT/HCPCS: 36430; 36591; 80053; 85652; 86850; 86900; 86901; 86920; 82607; 82746; 85025; P9016

== ENCOUNTER 2022-12-19 03:24 | Emergency (ER) | payer MEDICARE, OTHER, SELFPAY ==
--- NOTE | 2022-12-19 03:15 | DI.RAD_ITS ---
Exam(s) XR KNEE RT 3V AP,LAT,WILBERTO EXAM: XR KNEE RT 3V AP,LAT,WILBERTO CLINICAL HISTORY: knee gave out, fall. TECHNIQUE: 2D digital imaging was performed. Three views. COMPARISON: No exams were available for comparison FINDINGS: BONES: No acute fracture is present. No bony destructive lesion is seen. JOINTS: Narrowing of the medial femoral tibial joint space. Mild periarticular spurring. A small kimo int effusion is seen. SOFT TISSUE: Surgical clips medial soft tissues. Vascular calcifications. IMPRESSION: Small joint effusion. No evidence of fracture DATA REPOSITORY: RADIATION DOSE DELIVERED:
[2022-12-19 03:30] VITALS: BP 128/63; PULSE 92; RESP 24; TEMP 37.2; O2SAT 97
--- NOTE | 2022-12-19 03:30 | ED.GENADUL_ITS ---
Discharge Plan Disposition Patient Disposition: Home Discharge Details Chief Complaint: Fall/Non TraumaCriteria Clinical Impression: Fall, Knee pain Primary Care Provider: Moo Mora ED Provider: Mike Moise Home Meds and New Rx's Prescriptions: No Action prochlorperazine maleate 10 mg tablet 10 mg PO Q6H PRN Patient Comments: TAKE ONE TABLET BY MOUTH EVERY 6 HOURS NEEDED FOR NAUSEA aspirin 81 mg Tablet,Delayed Release (Dr/Ec) 81 mg PO DAILY acetaminophen 500 mg Tablet 1,000 mg PO Q6H PRN niacinamide 500 mg tablet 500 mg PO BID multivitamin Capsule 1 cap PO DAILY rosuvastatin 40 mg tablet 40 mg PO DAILY metoprolol tartrate 25 mg tablet 12.5 mg PO BID gabapentin 100 mg Tablet 100 mg PO DAILY loratadine 10 mg tablet 10 mg PO QDAY Patient Comments: TAKE ONE TABLET BY MOUTH EVERY DAY FOR A FEW DAYS AFTER CHEMO TO BLOCK BONE PAIN FROM WBC GROWTH FACTOR magnesium oxide 500 mg tablet 500 mg PO DAILY Qty: 30 0RF potassium chloride 10 mEq capsule, extended release 10 meq PO DAILY Qty: 30 0RF Discharge Instructions Instructions: Knee Pain (ED) Medical Decision Making 82-year-old male presents after mechanical fall after knee giving out while ambulating with his walker this evening. Fell directly onto his right knee and then hit his left elbow. No head injury no thoracoabdominal injury. Superficial abrasion and skin tear noted. Neurovascular exam of limb intact. Patient is neurologically intact. Likely simple contusion low suspicion for fracture or dislocation. Trial of ambulation after rest and analgesia. Screening x-ray. Likely home with close followup 5: 20 no evidence of fracture or dislocation. Will place PT OT referral HPI General Date/Time Provider Initiated Documentation: 12/19/22 03:29 . HPI Narrative: 82-year-old male presents after mechanical fall, felt his knee giving out from underneath him as he was ambulating with his walker this evening. Landed on his right knee. Pain to the knee. No other injuries endorsed Related Data Home Medications Medication Instructions Recorded Confirmed acetaminophen 500 mg tablet 1,000 mg PO Q6H PRN 10/03/22 12/19/22 aspirin 81 mg tablet,delayed 81 mg PO DAILY 10/03/22 12/19/22 release gabapentin 100 mg tablet 100 mg PO DAILY 10/03/22 12/19/22 loratadine 10 mg tablet 10 mg PO QDAY 10/03/22 12/19/22 metoprolol tartrate 25 mg tablet 12.5 mg PO BID 10/03/22 12/19/22 multivitamin 1 cap PO DAILY 10/03/22 12/19/22 niacinamide 500 mg tablet 500 mg PO BID 10/03/22 12/19/22 prochlorperazine maleate 10 mg 10 mg PO Q6H PRN 10/03/22 12/19/22 tablet rosuvastatin 40 mg tablet 40 mg PO DAILY 10/03/22 12/19/22 magnesium oxide 500 mg tablet 500 mg PO DAILY #30 tabs 10/06/22 12/19/22 potassium chloride 10 mEq 10 meq PO DAILY #30 caps 10/06/22 12/19/22 capsule,extended release Previous Rx's Medication Instructions Recorded magnesium oxide 500 mg tablet 500 mg PO DAILY #30 tabs 10/06/22 potassium chloride 10 mEq 10 meq PO DAILY #30 caps 10/06/22 capsule,extended release Allergies Allergy/AdvReac Type Severity Reaction Status Date / Time allopurinol AdvReac Intermediate Skin Rash Unverified 12/19/22 03:40 cephalexin [From Keflex] AdvReac Intermediate Skin Rash Unverified 12/19/22 03:40 General CHAD: 3 Review of Systems Narrative: Review of Systems Constitutional: negative Eyes: negative ENT: negative Cardiovascular: negative Respiratory: negative Gastrointestinal: negative : negative Musculoskeletal: Knee pain Skin: negative Neurologic: negative Psych: negative PFSH All Active Problems (Updated 12/19/22 @ 05:23 by Mike Moise MD) Fall (Acute) Knee pain (Acute) Severe anemia (Acute) Advanced care planning/counseling discussion (Acute) Atrial fibrillation (Chronic) Port-A-Cath in place (Acute) BPH (benign prostatic hyperplasia) (Chronic) Essential hypertension (Acute) Hypokalemia (Acute) Hypomagnesemia (Acute) Hodgkins lymphoma (Chronic) Medical History (Updated 12/19/22 @ 05:23 by Mike Moise MD) Coronary atherosclerosis Palliative care encounter Surgical History History of tonsillectomy Pacemaker Status post coronary artery bypass graft (~1995) Family History Father , age 54 from CAD Heart disease Paternal Grandfather , in his 50's from CAD Heart disease Social History Smoking/Tobacco Use Status: Current-Occasional Tobacco Type: cigarettes Years smoked: 64 Smoking risk assessment performed?: Yes Alcohol Intake: never Drug use: Never Substance use type: does not use Do you feel safe at home: Yes Do you feel safe in your relationship?: Yes Exam Narrative Exam Narrative: Physical Examination General: alert, awake, cooperative, resting comfortably, no acute distress HEENT: normocephalic, atraumatic; PERRL, EOM intact, conjunctiva normal; no nasal discharge; moist mucous membranes, oral and pharyngeal mucosa normal, tolerating secretions Neck: supple, trachea midline; full ROM Chest: normal to inspection Respiratory: normal respiratory effort, speaking in full sentences Skin: Superficial abrasion to right knee, superficial skin tear to left elbow Neuro: AAOx3, normal speech, moving all extremities; cranial nerves intact 5 and 5 strength upper and lower extremities Extremities: Flexion extension of right knee intact, no effusion appreciated no joint laxity appreciated, superficial abrasion to prepatellar soft tissue hemostatic. Superficial skin tear to left elbow full flexion extension intact Psych: Appropriate mood and affect
[2022-12-19] MEDS: Acetaminophen 325 MG TAB 650 MG PO (03:33)
--- NOTE | 2022-12-19 05:00 | DI.VRAD_ITS ---
PROCEDURE INFORMATION: Exam: XR Right Knee Exam date and time: 12/19/2022 4:44 AM Age: 82 years old Clinical indication: Injury or trauma; Blunt trauma; Right; Injury date: ; Injury details: Knee gave out, fall TECHNIQUE: Imaging protocol: Radiologic exam of the right knee. Views: 3 views. COMPARISON: No relevant prior studies available. FINDINGS: Bones/joints: Three views of the right knee reveal no acute fracture or dislocation. There is a small knee effusion. There is partial loss of the medial patellofemoral joint space in the medial patellofemoral compartment. There are surgical clips scattered along the medial aspect of the distal thigh and proximal foreleg. Prior vascular surgery is suspected. Correlation with surgical history is recommended. There is prominent atherosclerotic calcification through the visualized distal superficial femoral artery and popliteal artery. Soft tissues: No gross focal soft tissue abnormality is demonstrated. IMPRESSION: No acute fracture or dislocation. Small knee effusion. Dictated and Authenticated by: Austin Steiner MD. Ordering:REBECCA Mckeon MD
--- NOTE | 2022-12-19 05:29 | NUR.NOTE ---
Referral to Care Management for a PT/OT referral [facility] for right knee pain.Nursing Note:
[2022-12-19 05:37] VITALS: BP 125/58; PULSE 78; RESP 20; TEMP 36.7; O2SAT 96
== END 2022-12-19 05:33 | disposition home or self-care (01) ==
PROVIDERS: Emergency Provider Emergency Medicine; PCP Family Medicine
DX: M25.561 Pain in right knee (principal); W19.XXXA Unspecified fall, initial encounter
CPT/HCPCS: 73562; 99283

== ENCOUNTER 2022-12-23 15:08 | Inpatient (IN) | payer OTHER, SELFPAY ==
[2022-12-23] VITALS (53 sets, daily range): BP systolic 56–152; BP diastolic 41–74; PULSE 59–108; RESP 13–39; TEMP 36.6–36.8; O2SAT 85–99
--- NOTE | 2022-12-23 15:15 | DI.RAD_ITS ---
Exam(s) XR PELVIS AP EXAM: XR PELVIS AP CLINICAL HISTORY: recurrent falls. TECHNIQUE: 2D digital imaging was performed. COMPARISON: No exams were available for comparison FINDINGS: BONES: No acute fracture is present. No bony destructive lesion is seen. Degenerative changes in th e lower lumbar spine. JOINTS: No dislocation present. Mild bilateral joint space narrowing is present. Acetabular spurrin g. SOFT TISSUE: Normal bowel gas pattern. Vascular calcifications. IMPRESSION: No acute abnormality. DATA REPOSITORY: RADIATION DOSE DELIVERED:
--- NOTE | 2022-12-23 15:15 | DI.CT_ITS ---
Exam(s) CT HEAD WO EXAM: CT HEAD WO CLINICAL HISTORY: recurrent falls. TECHNIQUE: Imaging Protocol: Axial computed tomography images with coronal and sagittal reformatted images were created and reviewed COMPARISON: CT CT CHEST PE CTA from 10/03/2022 FINDINGS: Ventricles and Extra axial spaces: Normal in size for degree of atrophy. Hemorrhage: None. Cerebral parenchyma: Area of low-attenuation in the superior left frontal lobe with mild mass effect on the lateral ventricle. The edema appears to be vasogenic pattern, with sparing of the urban matter . Findings are suspicious for metastatic disease. A subacute infarct could also be considered. Are a of decreased attenuation in the medial right frontal lobe with associated atrophy could represent t he old infarct. There is underlying atrophy and white matter changes of small vessel disease. Midline shift: None. Brainstem/Cerebellum: Normal. Calvarium: Normal. No lytic or blastic lesions. Visualized Paranasal sinuses/Mastoids: Small amount of mucous retention in the right maxillary sinus. Soft Tissues: Unremarkable. IMPRESSION: Finding suspicious for a mass, presumed metastatic lesion in the left frontal lobe. Hemorrhage. Results called to Dr. Moise of the emergency department. RADIATION DOSE DELIVERED: 761.43mGy.cm Total DLP DATA REPOSITORY: All CT scans at this facility are submitted to the National Radiology Data Registry (NRDR) Dose Index Registry (DIR) with the [employer] ([employer]). RADIATION OPTIMIZATION: All CT scans at this facility use at least one of these dose optimization te chniques: automated exposure control; mA and/or kV adjustment per patient size (includes targeted exa ms where dose is matched to clinical indication); or iterative reconstruction.
--- NOTE | 2022-12-23 15:15 | DI.RAD_ITS ---
Exam(s) XR CHEST 2V PA LATERAL EXAM: XR CHEST 2V PA LATERAL CLINICAL HISTORY: weakness, falls TECHNIQUE: 2D digital imaging was performed. COMPARISON: CT CT CHEST PE CTA from 10/03/2022 CR XR CHEST 2V PA LATERAL from 10/03/2022 FINDINGS: HEART: Status post CABG. Pacemaker. Aorta: Mildly ectatic. PULMONARY VASCULATURE: Normal. LUNGS: Increased right upper lobe opacity compared to prior. Increased right upper lobe atelectasis. Left lung clear. PLEURAL SPACE: Small right pleural effusion, improved from prior. No pneumothorax. BONE:Sternal wires. Developmental fusion of vertebral bodies in the midthoracic region again noted. Port over right chest with tip in right atrium. IMPRESSION: Decreased size of right pleural effusion. Increased size of right upper lobe mass versus increasing right upper lobe atelectasis. DATA REPOSITORY: RADIATION DOSE DELIVERED:
--- NOTE | 2022-12-23 15:15 | RT.EKG_ITS ---
APPROVED REPORT Exam: Resting ECG Reason for Exam: weakness Patient Location: E HR:63 bpm ECG Measurements Heart Rate 63 AXIS FL 196 P 0 QRSd 141 QRS -74 QT 449 T 136 QTc 460 Conclusion Ventricular-paced rhythm v paced rhythm
--- NOTE | 2022-12-23 15:15 | DI.RAD_ITS ---
Exam(s) XR KNEE RT 3V AP,LAT,WILBERTO EXAM: XR KNEE RT 3V AP,LAT,WILBERTO CLINICAL HISTORY: recurrent falls. TECHNIQUE: 2D digital imaging was performed. Three views. COMPARISON: CR,XR XR KNEE RT 3V AP,LAT,WILBERTO from 12/19/2022 FINDINGS: BONES: No acute fracture is present. No bony destructive lesion is seen. JOINTS: Advanced degenerative changes of the medial femoral tibial joint space. A small joint effusi on is seen. SOFT TISSUE: Vascular calcifications. Surgical clips in medial soft tissues. IMPRESSION: No acute abnormality. DATA REPOSITORY: RADIATION DOSE DELIVERED:
--- NOTE | 2022-12-23 15:26 | W.ED.GENAD ---
Discharge Plan Disposition Patient Disposition: Admit to [facility] Condition: Stable Discharge Details Chief Complaint: Fall/Non TraumaCriteria Clinical Impression: Metastasis to brain, Falls, Debility, Dehydration Primary Care Provider: Moo Mora ED Provider: Mike Moise Home Meds and New Rx's Prescriptions: No Action morphine concentrate 100 mg/5 mL (20 mg/mL) solution See Rx Instructions PO Q1H PRN MDD 120 mg Qty: 30 0RF Rx Instructions: 0.25-1.0 ml orally every 1 hour, as needed; HOSPICE lorazepam 1 mg tablet 1 mg PO .q4 hr PRN (Reason: anxiety, agitation, nausea, or breathlessness) Qty: 10 5RF Rx Instructions: hospice prochlorperazine maleate 10 mg tablet 10 mg PO Q6H PRN Patient Comments: TAKE ONE TABLET BY MOUTH EVERY 6 HOURS NEEDED FOR NAUSEA aspirin 81 mg Tablet,Delayed Release (Dr/Ec) 81 mg PO DAILY acetaminophen 500 mg Tablet 1,000 mg PO Q6H PRN niacinamide 500 mg tablet 500 mg PO BID multivitamin Capsule 1 cap PO DAILY rosuvastatin 40 mg tablet 40 mg PO DAILY metoprolol tartrate 25 mg tablet 12.5 mg PO BID gabapentin 100 mg Tablet 100 mg PO DAILY loratadine 10 mg tablet 10 mg PO QDAY Patient Comments: TAKE ONE TABLET BY MOUTH EVERY DAY FOR A FEW DAYS AFTER CHEMO TO BLOCK BONE PAIN FROM WBC GROWTH FACTOR magnesium oxide 500 mg tablet 500 mg PO DAILY Qty: 30 0RF potassium chloride 10 mEq capsule, extended release 10 meq PO DAILY Qty: 30 0RF Medical Decision Making 82-year-old male history of A-fib hypertension Hodgkin's lymphoma, progressive weakness and multiple falls over the past several weeks to months, was visited by home hospice for evaluation however was deemed inappropriate for home care given level of needs and was referred in for placement at long-term care facility/rehabilitation facility. Patient is alert oriented moving all extremities, no external signs of acute trauma however evidence of subacute injuries with multiple abrasions and ecchymosis on limbs. Does have dry oromucosa dry skin and poor skin turgor consistent with dehydration. Will evaluate for intracranial injury, limb injury pelvic injury electrolyte abnormality dehydration infectious etiology, less likely ischemic injury such as ACS lower suspicion for PE or aortic pathology unlikely CVA. Light fluids close reassessment disposition pending reassessment and results 17: [address] and chest concerning for metastatic disease likely related to patient's underlying Hodgkin's lymphoma. Discussed findings at length with patient he knew about potential lung mets and has been in discussion with his primary team after counseling and liberation on the outpatient basis him and his oncologic service are not pursuing aggressive measures such as chemotherapy radiation or surgery. Given findings, worsening debility and self-care, patient will benefit from placement. We will continue with hydration, pain control, will add dexamethasone for anti-inflammatory purposes given likely component of vasogenic edema we will load with Keppra. HPI General Date/Time Provider Initiated Documentation: 12/23/22 15:23. HPI Narrative: 82-year-old male history of hypertension A-fib Hodgkin's of a progressive weakness over the past several weeks multiple falls, visit by home hospice deemed by hospice team to not be appropriate for care at home will need 09/01 assisted living/rehabilitation Related Data Home Medications Medication Instructions Recorded Confirmed acetaminophen 500 mg tablet 1,000 mg PO Q6H PRN 10/03/22 12/23/22 aspirin 81 mg tablet,delayed 81 mg PO DAILY 10/03/22 12/23/22 release gabapentin 100 mg tablet 100 mg PO DAILY 10/03/22 12/23/22 loratadine 10 mg tablet 10 mg PO QDAY 10/03/22 12/23/22 metoprolol tartrate 25 mg tablet 12.5 mg PO BID 10/03/22 12/23/22 multivitamin 1 cap PO DAILY 10/03/22 12/23/22 niacinamide 500 mg tablet 500 mg PO BID 10/03/22 12/19/22 prochlorperazine maleate 10 mg 10 mg PO Q6H PRN 10/03/22 12/23/22 tablet rosuvastatin 40 mg tablet 40 mg PO DAILY 10/03/22 12/19/22 magnesium oxide 500 mg tablet 500 mg PO DAILY #30 tabs 10/06/22 12/23/22 potassium chloride 10 mEq 10 meq PO DAILY #30 caps 10/06/22 12/23/22 capsule,extended release lorazepam 1 mg tablet 1 mg PO .q4 hr PRN anxiety, 12/22/22 12/23/22 agitation, nausea, or breathlessness #10 tabs morphine concentrate 100 mg/5 mL See Rx Instructions PO Q1H PRN 12/22/22 12/23/22 (20 mg/mL) oral solution pain or dyspnea #30 mL Previous Rx's Medication Instructions Recorded magnesium oxide 500 mg tablet 500 mg PO DAILY #30 tabs 10/06/22 potassium chloride 10 mEq 10 meq PO DAILY #30 caps 10/06/22 capsule,extended release lorazepam 1 mg tablet 1 mg PO .q4 hr PRN anxiety, 12/22/22 agitation, nausea, or breathlessness #10 tabs morphine concentrate 100 mg/5 mL See Rx Instructions PO Q1H PRN 12/22/22 (20 mg/mL) oral solution pain or dyspnea #30 mL Allergies Allergy/AdvReac Type Severity Reaction Status Date / Time allopurinol AdvReac Intermediate Skin Rash Unverified 12/23/22 16:34 cephalexin [From Keflex] AdvReac Intermediate Skin Rash Unverified 12/23/22 16:34 General Stated Complaint: Fall/Non TraumaCriteria CHAD: 4 Review of Systems Narrative: Review of Systems Constitutional: Fatigue, falls Eyes: negative ENT: negative Cardiovascular: negative Respiratory: negative Gastrointestinal: negative : negative Musculoskeletal: negative Skin: negative Neurologic: negative Psych: negative PFSH All Active Problems (Updated 12/23/22 @ 18:44 by Mike Moise MD) Fall (Acute) Knee pain (Acute) Metastasis to brain (Acute) Falls (Acute) Debility (Acute) Dehydration (Acute) Severe anemia (Acute) Advanced care planning/counseling discussion (Acute) Atrial fibrillation (Chronic) Port-A-Cath in place (Acute) BPH (benign prostatic hyperplasia) (Chronic) Essential hypertension (Acute) Hypokalemia (Acute) Hypomagnesemia (Acute) Hodgkins lymphoma (Chronic) Medical History (Updated 12/23/22 @ 18:44 by Mike Moise MD) Coronary atherosclerosis Palliative care encounter Surgical History History of tonsillectomy Pacemaker Status post coronary artery bypass graft (~1995) Family History Father , age 54 from CAD Heart disease Paternal Grandfather , in his 50's from CAD Heart disease Social History Smoking/Tobacco Use Status: Current-Occasional Tobacco Type: cigarettes Years smoked: 64 Smoking risk assessment performed?: Yes Alcohol Intake: never Drug use: Never Substance use type: does not use Do you feel safe at home: Yes Do you feel safe in your relationship?: Yes Exam Narrative Exam Narrative: Physical Examination General: alert, awake, cooperative, resting comfortably, no acute distress HEENT: normocephalic, atraumatic; PERRL, EOM intact, conjunctiva normal; no nasal discharge; dry oral mucosa Neck: supple, trachea midline; full ROM Chest: normal to inspection Respiratory: normal respiratory effort, speaking in full sentences, clear to auscultation, no wheezing, rales or rhonchi Cardiac: regular rate, regular rhythm, S1S2 intact, no murmurs rubs or gallops GI: abdomen soft, non-tender, non-distended; no palpable mass or hepatosplenomegaly Skin: Multiple areas of subacute and chronic appearing ecchymosis, superficial abrasions to limbs, dry skin Neuro: AAOx3, normal speech, moving all extremities Extremities: No deformity Psych: Appropriate mood and affect Course Vital Signs Vital signs: Vital Signs Temperature 36.8 C 12/23/22 15:11 Pulse 65 12/23/22 15:11 Blood Pressure 111/71 12/23/22 15:11 Pulse Oximetry 97 12/23/22 15:11 Temperature 36.8 C 12/23/22 15:11 Temperature Source Tympanic 12/23/22 15:11 Pulse 65 12/23/22 15:11 Blood Pressure 111/71 12/23/22 15:11 Blood Pressure Position Sitting 12/23/22 15:11 Pulse Oximetry 97 12/23/22 15:11 Oxygen Delivery Method Room Air 12/23/22 15:11 Oxygen Flow Rate 0 12/23/22 15:11 Pain Level 2 12/23/22 15:11
[2022-12-23] MEDS: Normal Saline 500 ML 1000 ML IV (15:35)
[2022-12-23 16:21] LABS: Abs Immature Grans 0.07 10^3/uL (0.0-0.06); Absolute Basophil Count 0.02 10^3/uL (0.0-0.2); Absolute Eosinophil Count 0.09 10^3/uL (0.0-0.7); Absolute Lymphocyte Count 0.28 10^3/uL (1.2-3.4); Absolute Monocyte Count 0.85 10^3/uL (0.1-0.8); Absolute Neutrophil Count 3.66 10^3/uL (1.2-6.7); Basophils % 0.4; Eosinophils % 1.8; HCT 29.3 % (40.0-50.0); HGB 9.5 g/dL (13.5-17.5); Immature Grans % 1.4; Lymphocytes % 5.6; MCH 30.8 pg (27.0-33.0); MCHC 32.4 % (32.0-36.0); MCV 95 fL (80-95); MPV 9.7 fL (8.0-11.0); Monocytes % 17.1; Neutrophils % 73.7; Platelet Count 125 10^3/uL (130-400); RBC 3.08 10^6/uL (4.36-5.78); RDW 14.5 % (11.8-14.1); WBC 4.97 10^3/uL (4.4-10.8)
[2022-12-23 16:37] LABS: ALT 11 U/L (16-63); AST 27 U/L (15-37); Alkaline Phosphatase 96 U/L (46-116); Anion Gap 10.1 mmol/L (3-11); BUN 23 mg/dL (7-18); Bilirubin, Total 0.4 mg/dL (0.2-1.0); CO2 25.9 mmol/L (21.0-32.0); CREATININE 1.4 mg/dL (0.70-1.30); Calcium 9.1 mg/dL (8.5-10.1); Chloride 105 mmol/L (98-107); Creatine Kinase 78 U/L (39-308); Estimated GFR 50.49 (mL/min/1.73m2); Glucose 128 mg/dL (74-106); Sodium 141 mmol/L (136-145); Total Protein 7.3 g/dL (6.4-8.2); Troponin I < 50 ng/L (<or=60)
[2022-12-23 16:42] LABS: NT-proBNP 3926 pg/mL (<300); TSH (W/Ref FT4) 1.88 uIU/mL (0.36-3.74)
[2022-12-23] MEDS: Ondansetron 4 MG/2 ML VIAL IVP (17:36)
[2022-12-23 17:37] LABS: Bilirubin Negative (Negative); Blood Negative (Negative); Clarity Clear (Clear); Glucose Negative (Negative); Ketones Negative (Negative); Leukocyte Esterase Negative (Negative); Nitrite Negative (Negative); Urobilinogen 0.2 mg/dL (Up to 0.2); pH 5.5 (5-8)
[2022-12-23] MEDS: levETIRAcetam 1,000 MG in Normal Saline 100 ML 400 MG IVPB (17:37)
[2022-12-23] MEDS: Dexamethasone 10 MG/ML VIAL IVP (17:41)
[2022-12-23] MEDS: MORPHine 4 MG/ML SYR 2 MG IVP (17:42)
[2022-12-23 17:49] LABS: Bacteria Negative HPF (Negative); C & S Indicated? No; Casts Negative LPF (Negative); Crystals Negative HPF (Negative); Epithelial Cells Rare HPF (Negative); Mucus Negative (Negative); RBC 0-2 HPF (0-2); WBC 0-2 HPF (0-5)
[2022-12-23 18:44] LABS: Troponin I < 50 ng/L (<or=60)
--- NOTE | 2022-12-23 22:50 | W.PM.HP.N ---
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 He is not safe living alone in his current sitation. PT consulted to assess safety, will likely need placement where there is 24 hour assistance. (2) Metastasis to brain: Status: Acute Assessment and plan: As above. Dexamethasone started in ED for vasogenic edema, will continue and assess for sympomatic response. I don't see a clear indication to continue keppra as he has not had seizures or a recent brain procedure. (3) Severe anemia: Status: Acute Assessment and plan: This has actually improved since stopping chemotherapy. (4) Atrial fibrillation: Status: Chronic Assessment and plan: Paced rhythm today. not anticoagulated due to falls. Continue metoprolol low dose. (5) Coronary atherosclerosis: Assessment and plan: Will continue ASA and statin, though these may be stopped with hospice. (6) CKD (chronic kidney disease) stage 3, GFR 30-59 ml/min: Status: Acute Assessment and plan: STable, at recent baseline Cr. (7) DVT prophylaxis: Status: Acute Assessment and plan: High risk for DVT but also for falls, brain bleeding. Will use mechanical prophylaxis (8) Advanced care planning/counseling discussion: Status: Acute Assessment and plan: I confirmed Mr. Simmons is DNR/DNI. He is planning hospice care when appropriate help or facility can be found. I will consult palliative care for input while he is here. History of Present Illness History of Present Illness Chief Complaint: falls Narrative: 82 yo M smoker with a history of CAD s/p CABG and Hodgkins Lymphoma for which he recently decided to forgo further treatment presented to the emergency room with multiple falls in his home. He states he does not have chest pain or dizziness associated with falls. He feels like his right legs gets weak and gives out. He did not hit his head. He denies pain right now other than some chronic back pain, for which he usually takes APAP 1000mg. He was visited by the hospice intake nurse today but they were not able to admit him because he did not have a buckle attacher and they felt he should be placed in a halfway care facility for hospice care. Of note he was seen in the ED for a fall 12/19 and was send home after a benign evaluation but did not have chest or head imaging. He was also admitted 10/03- with dehydration and diarrhea related to his chemotherapy with brentuximab and Bendamustine, low K/Mg. He had a mild troponin elevation during that admission. As above he has since stopped chemotherapy after a discussion with his oncologist. Review of Systems Constitutional Constitutional: Denies anorexia, Denies chills, Denies fever(s) and Reports lethargy Eyes Eyes: Denies change in vision and Denies irritation ENT Ears, Nose, Mouth, and Throat: Denies change in voice, Denies dysphagia, Denies vertigo, Denies dizziness, Denies nasal congestion, Denies nasal discharge and Denies sore throat Cardiovascular Cardiovascular: Denies chest pain, Denies syncope, Denies pedal edema, Denies palpitations and Denies dyspnea Respiratory Respiratory: Reports cough (intermittent cough), Denies hemoptysis, Denies excessive phlegm production, Denies dyspnea and Denies wheezing Gastrointestinal Gastrointestinal: Denies abdominal pain, Denies constipation, Denies dysphagia, Denies heartburn, Denies diarrhea and Denies vomiting Genitourinary Genitourinary: Denies hematuria, Denies difficulty urinating and Denies dysuria Musculoskeletal Musculoskeletal: Reports back pain and Denies joint swelling Integumentary/Breasts Skin/Breast: Denies rash and Reports skin ulcer (excoriations on left arm, right knee) Neurologic Neurologic: Denies confusion, Denies vertigo, Denies dizziness, Denies syncope, Reports localized weakness (right leg feels weak), Denies convulsions, Denies sensory deficit, Reports tremor(s) (left arm was shaking earlier today, not constant) and Reports other (more word finding difficulty) Psychiatric Psychiatric: Denies confusion, Denies mood swings and Denies panic attacks Endocrine Endocrine: Denies palpitations Hematologic/Lymphatic Hematologic/Lymphatic: Denies easy bleeding Allergic/Immunologic Allergic/Immunologic: Denies wheezing PFSH All Active Problems (Updated 12/23/22 @ 23:25 by Jose Richardson) CKD (chronic kidney disease) stage 3, GFR 30-59 ml/min (Acute) DVT prophylaxis (Acute) Fall (Acute) Knee pain (Acute) Metastasis to brain (Acute) Falls (Acute) Debility (Acute) Dehydration (Acute) Severe anemia (Acute) Advanced care planning/counseling discussion (Acute) Atrial fibrillation (Chronic) Port-A-Cath in place (Acute) BPH (benign prostatic hyperplasia) (Chronic) Essential hypertension (Acute) Hypokalemia (Acute) Hypomagnesemia (Acute) Hodgkins lymphoma (Chronic) Medical History (Updated 12/23/22 @ 23:25 by Jose Richardson) Coronary atherosclerosis Palliative care encounter Surgical History History of tonsillectomy Pacemaker Status post coronary artery bypass graft (~1995) Family History Father , age 54 from CAD Heart disease Paternal Grandfather , in his 50's from CAD Heart disease Social History (Updated 12/23/22 @ 23:05 by oJse Richardson) Smoking/Tobacco Use Status: Current-Occasional Tobacco Type: cigarettes Years smoked: 64 Smoking risk assessment performed?: Yes Reason tobacco screening was not done: limited life expectancy Alcohol Intake: never Drug use: Never Substance use type: does not use Do you feel safe at home: Yes Do you feel safe in your relationship?: Yes Additional Social history: Lives alone in [place] in 2nd floor apartment. [employer] x 22 years. Brother in [facility] Allergies and Home Medications Allergies Allergy/AdvReac Type Severity Reaction Status Date / Time allopurinol AdvReac Intermediate Skin Rash Unverified 12/23/22 16:34 cephalexin [From Keflex] AdvReac Intermediate Skin Rash Unverified 12/23/22 16:34 Home Medications Medication Instructions Recorded Confirmed Type acetaminophen 500 mg tablet 1,000 mg PO Q6H PRN 10/03/22 12/23/22 History aspirin 81 mg tablet,delayed 81 mg PO DAILY 10/03/22 12/23/22 History release gabapentin 100 mg tablet 100 mg PO DAILY 10/03/22 12/23/22 History loratadine 10 mg tablet 10 mg PO QDAY 10/03/22 12/23/22 History metoprolol tartrate 25 mg tablet 12.5 mg PO BID 10/03/22 12/23/22 History multivitamin 1 cap PO DAILY 10/03/22 12/23/22 History niacinamide 500 mg tablet 500 mg PO BID 10/03/22 12/19/22 History prochlorperazine maleate 10 mg 10 mg PO Q6H PRN 10/03/22 12/23/22 History tablet rosuvastatin 40 mg tablet 40 mg PO DAILY 10/03/22 12/19/22 History magnesium oxide 500 mg tablet 500 mg PO DAILY #30 tabs 10/06/22 12/23/22 Rx potassium chloride 10 mEq 10 meq PO DAILY #30 caps 10/06/22 12/23/22 Rx capsule,extended release lorazepam 1 mg tablet 1 mg PO .q4 hr PRN anxiety, 12/22/22 12/23/22 Rx agitation, nausea, or breathlessness #10 tabs morphine concentrate 100 mg/5 mL See Rx Instructions PO Q1H PRN 12/22/22 12/23/22 Rx (20 mg/mL) oral solution pain or dyspnea #30 mL Exam Narrative Exam Narrative: GEN: Alert and oriented, pleasant and cooperative, gives linear history but speech a bit stilted. No acute distress at rest. HEENT: Head atraumatic (dark spot, defect in scalp from old biopsy per patient). Conjunctiva clear, no icterus. PEERL, EOMI. no rhinorrhea. MMM, OP benign. Neck is supple with no masses or lymphadenopathy, trachea midline LUNGS: CTAB with normal effort CV: RRR with 1/6 systolic murmur at RUSB, gallops, or rubs. ABD: +BS, soft, NT/ND EXT: no cyanosis, clubbing, or edema MSK: No joint redness or swelling NEURO: CN 2-12 grossly intact. moves 4 extremities but 4/5 on right arm and leg vs left on my exam. sensation intact to light touch. no tremor or abnormal movemtns. +clonus in ankles. Normal coordination SKIN: No rashes. Abrasion/ulcerations left arm, right knee. Arms with bruises PSYCH: normal mood and affect, gets frustrated with lack of fluency in speech. Results Imaging Chest x-ray: report reviewed (Decreased size of right pleural effusion. Increased size of right upper lobe mass versus increasing right upper lobe atelectasis.) and image reviewed Additional studies: knee, pelvis XR negative EKG: report reviewed (ventricular paced, regular) Imaging Studies: CT head: Hemorrhage: None. Cerebral parenchyma: Area of low-attenuation in the superior left frontal lobe with mild mass effect on the lateral ventricle.? The edema appears to be vasogenic pattern, with sparing of the urban matter.? Findings are suspicious for metastatic disease.? A subacute infarct could also be considered.? Area of decreased attenuation in the medial right frontal lobe with associated atrophy could represent the old infarct.? There is underlying atrophy and white matter changes of small vessel disease.? Midline shift: None Labs 12/23/22 16:08 12/23/22 16:08 Labs: Laboratory Results - last 24 hr 12/23/22 12/23/22 12/23/22 16:08 16:08 16:08 WBC 4.97 RBC 3.08 L Hgb 9.5 L Hct 29.3 L MCV 95 MCH 30.8 MCHC 32.4 RDW 14.5 H Plt Count 125 L MPV 9.7 Immature Gran % 1.4 Neutrophils % 73.7 Lymphocytes % 5.6 Monocytes % 17.1 Eosinophils % 1.8 Basophils % 0.4 Nucleated RBC % 0.0 Absolute Neutrophils 3.66 Absolute Lymphocytes 0.28 L Absolute Monocytes 0.85 H Absolute Eosinophils 0.09 Absolute Basophils 0.02 Sodium 141 Potassium 4.0 Chloride 105 Carbon Dioxide 25.9 Anion Gap 10.1 BUN 23 H Creatinine 1.4 H Est GFR (CKD-EPI 2020) 50.49 Glucose 128 H Calcium 9.1 Magnesium 2.0 Total Bilirubin 0.4 AST 27 ALT 11 L Alkaline Phosphatase 96 Creatine Kinase 78 Troponin I < 50 NT-Pro-B Natriuret Pep 3926 H Total Protein 7.3 Albumin 3.0 L TSH 1.88 Urine Color Urine Clarity Urine pH Ur Specific [place] Urine Protein Urine Ketones Urine Blood Urine Nitrite Urine Bilirubin Urine Urobilinogen Ur Leukocyte Esterase Urine RBC Urine WBC Ur Epithelial Cells Urine Crystals Urine Bacteria Urine Casts Urine Mucus Ur Culture Indicated? Urine Glucose 12/23/22 12/23/22 17:22 18:22 WBC RBC Hgb Hct MCV MCH MCHC RDW Plt Count MPV Immature Gran % Neutrophils % Lymphocytes % Monocytes % Eosinophils % Basophils % Nucleated RBC % Absolute Neutrophils Absolute Lymphocytes Absolute Monocytes Absolute Eosinophils Absolute Basophils Sodium Potassium Chloride Carbon Dioxide Anion Gap BUN Creatinine Est GFR (CKD-EPI 2020) Glucose Calcium Magnesium Total Bilirubin AST ALT Alkaline Phosphatase Creatine Kinase Troponin I < 50 NT-Pro-B Natriuret Pep Total Protein Albumin TSH Urine Color Yellow Urine Clarity Clear Urine pH 5.5 Ur Specific [place] 1.010 Urine Protein 30 H Urine Ketones Negative Urine Blood Negative Urine Nitrite Negative Urine Bilirubin Negative Urine Urobilinogen 0.2 Ur Leukocyte Esterase Negative Urine RBC 0-2 Urine WBC 0-2 Ur Epithelial Cells Rare Urine Crystals Negative Urine Bacteria Negative Urine Casts Negative Urine Mucus Negative Ur Culture Indicated? No Urine Glucose Negative Last Vital Signs Temp 36.6 C 12/23/22 21:40 Pulse 78 12/23/22 21:40 Resp 18 12/23/22 21:40 BP 124/72 12/23/22 21:40 Pulse Ox 96 12/23/22 21:40 Time Spent Time spent with Patient: 55-74 minutes Time was spent: preparing to see the patient(eg.review tests), obtaining and/or reviewing separately otained hiistory, ordering medications,tests, procedures, referring, communicating with other health child day care teacher, indepentently interpreting results and counseling the patient
[2022-12-24] MEDS: Acetaminophen 500 MG TAB 1000 MG PO ×2 (02:06→13:22)
[2022-12-24] MEDS: LORazepam 1 MG TAB PO ×3 (02:07→20:42)
[2022-12-24 02:18] VITALS: BP 121/65; PULSE 62; RESP 18; TEMP 36.6; O2SAT 98
[2022-12-24 09:25] VITALS: BP 129/71; PULSE 63; RESP 15; TEMP 36; O2SAT 97
[2022-12-24] MEDS: Metoprolol 12.5 MG TAB PO ×2 (09:26→20:43)
[2022-12-24] MEDS: Magnesium Oxide 400 MG TAB PO (09:26)
[2022-12-24] MEDS: Aspirin E.C. 81 MG TABEC PO (09:26)
[2022-12-24] MEDS: Dexamethasone 4 MG TAB 8 MG PO (09:26)
[2022-12-24] MEDS: Multivitamin TAB 1 TAB PO (09:26)
[2022-12-24] MEDS: Potassium Chloride 10 MEQ CAPCR PO (09:26)
[2022-12-24] MEDS: Gabapentin 100 MG CAP PO (09:27)
[2022-12-24] MEDS: Normal Saline Flush 10 ML SYR IVP ×3 (09:27→15:20)
--- NOTE | 2022-12-24 11:17 | PGE_ITS ---
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 He is not safe living alone in his current sitation. PT consulted to assess safety, needs placement where there is 24 hour assistance. Care mgrs working on referrals; patient states he would like to go home, discussed safety, although not in total agreement, he said he will think about it. No visitors today (2) Metastasis to brain: Status: Acute Assessment and plan: As above. Continue Dexamethasone started in ED for vasogenic edema (3) Severe anemia: Status: Acute Assessment and plan: Improved H&H 9.5/29.3 (4) Atrial fibrillation: Status: Chronic Assessment and plan: Paced rhythm today. not anticoagulated due to falls. Continue metoprolol low dose. (5) Coronary atherosclerosis: Assessment and plan: Will continue ASA and statin, though these may be stopped with hospice. (6) CKD (chronic kidney disease) stage 3, GFR 30-59 ml/min: Status: Acute Assessment and plan: stable, at recent baseline Cr. 1.4 (7) DVT prophylaxis: Status: Acute Assessment and plan: High risk for DVT but also for falls, brain bleeding. Continue mechanical prophylaxis (8) Advanced care planning/counseling discussion: Status: Acute Assessment and plan: DNR/DNI. He is planning hospice care when appropriate help or facility can be found. Palliative care consulted Subjective Subjective Patient reports: no new complaints, tolerating liquids well, tolerating a regular diet, voiding w/o difficulty, bowel movement and afebrile; denies diarrhea, nausea or vomiting Exam Narrative Exam Narrative: GEN: Alert and oriented, pleasant and cooperative, No acute distress at rest. HEENT: Head atraumatic (dark spot, defect in scalp from old biopsy per patient). Conjunctiva clear, no icterus. PEERL, EOMI. no rhinorrhea. MMM, OP benign. Neck is supple with no masses or lymphadenopathy, trachea midline LUNGS: CTAB with normal effort CV: RRR with 1/6 systolic murmur at RUSB, gallops, or rubs. ABD: +BS, soft, NT/ND EXT: no cyanosis, clubbing, or edema MSK: No joint redness or swelling NEURO: CN 2-12 grossly intact. moves 4 extremities sensation intact to light touch. no tremor or abnormal movements. Normal coordination SKIN: No rashes. Abrasion/ulcerations left arm, right knee. Arms with bruises PSYCH: normal mood and affect. Objective Last Vital Signs Temp 36 C L 12/24/22 09:25 Pulse 63 12/24/22 09:25 Resp 15 12/24/22 09:25 BP 129/71 12/24/22 09:25 Pulse Ox 97 12/24/22 09:25 Laboratory Results - last 24 hr 12/23/22 12/23/22 12/23/22 16:08 16:08 16:08 WBC 4.97 RBC 3.08 L Hgb 9.5 L Hct 29.3 L MCV 95 MCH 30.8 MCHC 32.4 RDW 14.5 H Plt Count 125 L MPV 9.7 Immature Gran % 1.4 Neutrophils % 73.7 Lymphocytes % 5.6 Monocytes % 17.1 Eosinophils % 1.8 Basophils % 0.4 Nucleated RBC % 0.0 Absolute Neutrophils 3.66 Absolute Lymphocytes 0.28 L Absolute Monocytes 0.85 H Absolute Eosinophils 0.09 Absolute Basophils 0.02 Sodium 141 Potassium 4.0 Chloride 105 Carbon Dioxide 25.9 Anion Gap 10.1 BUN 23 H Creatinine 1.4 H Est GFR (CKD-EPI 2020) 50.49 Glucose 128 H Calcium 9.1 Magnesium 2.0 Total Bilirubin 0.4 AST 27 ALT 11 L Alkaline Phosphatase 96 Creatine Kinase 78 Troponin I < 50 NT-Pro-B Natriuret Pep 3926 H Total Protein 7.3 Albumin 3.0 L TSH 1.88 Urine Color Urine Clarity Urine pH Ur Specific [place] Urine Protein Urine Ketones Urine Blood Urine Nitrite Urine Bilirubin Urine Urobilinogen Ur Leukocyte Esterase Urine RBC Urine WBC Ur Epithelial Cells Urine Crystals Urine Bacteria Urine Casts Urine Mucus Ur Culture Indicated? Urine Glucose 12/23/22 12/23/22 17:22 18:22 WBC RBC Hgb Hct MCV MCH MCHC RDW Plt Count MPV Immature Gran % Neutrophils % Lymphocytes % Monocytes % Eosinophils % Basophils % Nucleated RBC % Absolute Neutrophils Absolute Lymphocytes Absolute Monocytes Absolute Eosinophils Absolute Basophils Sodium Potassium Chloride Carbon Dioxide Anion Gap BUN Creatinine Est GFR (CKD-EPI 2020) Glucose Calcium Magnesium Total Bilirubin AST ALT Alkaline Phosphatase Creatine Kinase Troponin I < 50 NT-Pro-B Natriuret Pep Total Protein Albumin TSH Urine Color Yellow Urine Clarity Clear Urine pH 5.5 Ur Specific [place] 1.010 Urine Protein 30 H Urine Ketones Negative Urine Blood Negative Urine Nitrite Negative Urine Bilirubin Negative Urine Urobilinogen 0.2 Ur Leukocyte Esterase Negative Urine RBC 0-2 Urine WBC 0-2 Ur Epithelial Cells Rare Urine Crystals Negative Urine Bacteria Negative Urine Casts Negative Urine Mucus Negative Ur Culture Indicated? No Urine Glucose Negative Time Spent with Patient Time Spent with Patient: 35-49 minutes Time was spent: preparing to see the patient(eg.review tests), ordering medications,tests, procedures, referring, communicating with other health care p jensenfessionals, indepentently interpreting results, counseling the patient and care coordination
--- NOTE | 2022-12-24 11:34 | PT.INIE ---
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 He is not felt to be safe living alone in his current situation, per hospice evaluation.? PT consulted to assess safety. PMHX: All Active Problems?(Updated 12/23/22 @ 23:25 by Jose Richardson) CKD (chronic kidney disease) stage 3, GFR 30-59 ml/min (Acute) DVT prophylaxis (Acute) Fall (Acute) Knee pain (Acute) Metastasis to brain (Acute) Falls (Acute) Debility (Acute) Dehydration (Acute) Severe anemia (Acute) Advanced care planning/counseling discussion (Acute) Atrial fibrillation (Chronic) Port-A-Cath in place (Acute) BPH (benign prostatic hyperplasia) (Chronic) Essential hypertension (Acute) Hypokalemia (Acute) Hypomagnesemia (Acute) Hodgkins lymphoma (Chronic) Medical History?(Updated 12/23/22 @ 23:25 by Jose Richardson) Coronary atherosclerosis Palliative care encounter Surgical History? History of tonsillectomy Pacemaker Status post coronary artery bypass graft (~1995) Social History/Home Situation: Lives in [place], alone. Second floor apartment with electrical chair lift to enter. He has a brother and friend that check in on him daily. Current Functional Limitations: Utilizes RW for functional mobility, struggling to get in and out of bed, and out of chairs at home. Falling daily. Equipment Owned/DME: RW, electric chair lift Subjective: Falling daily. Sometimes he is not even able to get OOB or off the floor, and has called the fire dept multiple times to help him get up. He continues to appreciate progressive weakness. He does not feel safe to be alone - he is accepting his failing condition from Cancer. Objective: General Observation: Lying on right side in hospital bed, talking with family (cousins) who have been visiting for the day. Humorous, pleasant, cognitively witty. Fresh red laceration anterior R knee, and medial L knee post fall Mental Status: A & O x 3 Pain: 0/10 Vital Signs: BP 116/70, HR 63 ROM: Right Upper Extremity: Marisol flex and abd 145-150, otherwise WNL Left Upper Extremity: WNL Right Lower Extremity: WNL Left Lower Extremity: WNL Strength: Right Upper Extremity: Grossly 4-/5 throughout Left Upper Extremity: Grossly 4-/5 throughout Right Lower Extremity: Grossly 4/5 throughout Left Lower Extremity: Grossly 4/5 throughout Sensation: intact Bed Mobility/Transfers: Supine to EOB Min A x 1 Sit to stand at RW CG x 1 Stand to sit supervision from RW EOB to supine min A x 1 Bed mobility independent Gait: 50 ft RW CG x 1 Balance: Static Sitting: Fair Dynamic Sitting: Poor Static Standing: Fair at RW Dynamic Standing: Fair at RW Stage 4 Balance Test Time (seconds) Feet together 10 with CG Partial tandem 10 with CG Tandem Unable One foot Unable Standing EC CG x 1, sway Standing trunk rotation unstable, dependent on RW Change of direction with RW unstable CG x 1 Special Tests: Mobility Limitations Standardized Measure 57% disability Informed Consent/Education: Patient instructed in purpose of PT consult and plan of care. Assessment: Patient is a 82 year old male referred to physical therapy services with the diagnosis of falls due to progressive weakness in setting of metastasized hodgkins lymphoma. Patient presents with poor balance and global weakness, allowing for inability to get in and out of bed without assist, instability with dynamic movement with CG A to limit falls at any moment, now making patient unable to care for himself. He is high risk for falls, and not appropriate to be living alone based on todays presentation, and history of frequent falls and fire dept assists. Given his medical diagnosis, and progressive weakness and high fall frequency return home is not safe. Short term hospital stay not expected to rehabilitate current conditions to return home, and his medical condition likely will not allow for positive functional mobility changes. Patient is assessed as a Moderate [id number] complexity based on the above history, examination, evolving presentation, with easy decision making. Goals: Goals X1 week 1. Supine-Sit CG 2. Sit-Supine CG 3. Sit-Stand CG with RW 4. Stand-Sit CG with RW 5. Bed-Chair CG with RW 6. Chair-Bed CG with RW 7. Gait 100 ft with CG 8. Appropriate retirement placement to insure safe living situation. Plan of Care/Treatment Plan: 1-2x/day, 7 days/week x 1 week. Plan of care has been reviewed with the GENERAL UTILITY MACHINE OPERATOR providing the service under Physical Therapy direction. Initiate Physical Therapy intervention for strengthening, bed mobility, transfers, gait, stairs, balance training, use of assistive device. DISCHARGE RECOMMENDATIONS: [] Carton Filling Machine Operator Care [] TREATMENT CODE/TIME: 10:10-10:40 [id number]
--- NOTE | 2022-12-24 13:17 | INITIAL_ITS ---
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 His brother Kai lives nearby in [place]. 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 Antwan reports that he is independent with his ADL's at baseline. CURRENT FUNCTIONAL STATUS:: Antwan was sitting up in bed when CM met with him. He stated that he was having some anxiety and his RN was going to get him some medication. He stated that he was more comfortable now and was agreeable to having a conversation. Antwan stated that he does not feel that he will be safe to return home, and he is agreeable to going to a SNF, but he does not want to go to any [facility] facilities. CM stated that referrals can be sent to any facilities he is interested in. He reported that he would particularly prefer to go to a [place] run home/facility. CM will send referrals, and will contact [place] [facility] to ask for support in his placement. CM spoke to Hospice today, who stated that he was going to be admitted to Hospice, but was not due to their concerns about him not having a caregiver, and falling multiple times at home. CM will continue to follow. ADVANCE DIRECTIVES:: On file, Kai (brother) listed as [facility]CA Has patient been provided with info about the portal/API?: Yes Did the patient sign up for the portal?: No CODE STATUS:: DNR/DNI INSURANCE COVERAGE / FINANCIAL ISSUES:: [facility]/ [facility]/ [place] CURRENT HOME/COMMUNITY SERVICES/EQUIPMENT:: services; Antwan was planning to admit to Hospice, but does not have a caregiver at home, and his needs are too great to be alone at this time, per Hospice team. PRIMARY CARE PHYSICIAN:: LOLY Graham POTENTIAL DISCHARGE NEEDS:: Possible SNF placement vs arrangements to live with family; evaluations for further needs, follow up appointments. PATIENT/FAMILY EDUCATION NEEDS:: Review discharge instructions and limitations, discussion of self care needs including ask me three. ANTICIPATED BARRIERS TO DISCHARGE:: None. TRANSPORTATION:: Dependent on disposition. PLAN:: Antwan may require additional support which may mean that he may have to live with family vs placement. His disposition is yet to be determined, as well as his transportation. He is followed by Palliative care and hospice. He will follow up with his PCP and discharge plan of care. CM will continue to follow. PFSH All Active Problems (Updated 12/23/22 @ 23:25 by Jose Richardson) CKD (chronic kidney disease) stage 3, GFR 30-59 ml/min (Acute) DVT prophylaxis (Acute) Fall (Acute) Knee pain (Acute) Metastasis to brain (Acute) Falls (Acute) Debility (Acute) Dehydration (Acute) Severe anemia (Acute) Advanced care planning/counseling discussion (Acute) Atrial fibrillation (Chronic) Port-A-Cath in place (Acute) BPH (benign prostatic hyperplasia) (Chronic) Essential hypertension (Acute) Hypokalemia (Acute) Hypomagnesemia (Acute) Hodgkins lymphoma (Chronic) Medical History (Updated 12/23/22 @ 23:25 by Jose Richardson) Coronary atherosclerosis Palliative care encounter Surgical History History of tonsillectomy Pacemaker Status post coronary artery bypass graft (~1995) Family History Father , age 54 from CAD Heart disease Paternal Grandfather , in his 50's from CAD Heart disease Social History (Updated 12/23/22 @ 23:05 by Jose Richardson) Smoking/Tobacco Use Status: Current every day Tobacco Type: cigarettes Years smoked: 64 Tobacco: How many years used: 64 Smoking risk assessment performed?: Yes Reason tobacco screening was not done: limited life expectancy Alcohol Intake: never Drug use: Never Substance use type: does not use Housing: apartment Do you feel safe at home: Yes Do you feel safe in your relationship?: Yes Additional Social history: Lives alone in [place] in 2nd floor apartment. 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 Brother in [facility]
[2022-12-24 14:17] VITALS: BP 113/72; PULSE 69; TEMP 36.5; O2SAT 98
[2022-12-24] MEDS: MORPHine 2 MG/ML SYR IVP (15:15)
--- NOTE | 2022-12-24 15:47 | RESPIRATORY ---
RT Assessment Start: 12/24/22 14:19 Freq: .q shift and prn Status: Active Protocol: Document 12/24/22 15:34 (Rec: 12/24/22 15:41 [id number]) RT Assessment Pulmonary History Pulmonary History Other Smoking History Smoking/Tobacco Use Status Current every day Tobacco: How many years used 64 Tobacco Type cigarettes OXYGEN HISTORY: Current Respiratory Symptoms Current Respiratory Symptoms Cough,Sputum production Respiratory Breath Sounds Breath Sounds Any abnormal sounds, decreased breath sounds Pulse Rate <100 Respiratory Rate <18 Shortness of Breath On exertion Respiratory Therapy Score Total 2 Assessment and Plan RT Treatment Protocol No RT treatment protocols required at this time, re- consult if change
[2022-12-24] MEDS: Rosuvastatin 20 MG TAB 40 MG PO (20:42)
[2022-12-24 22:33] VITALS: BP 146/87; RESP 20
[2022-12-25] MEDS: MORPHine 2 MG/ML SYR IVP ×3 (01:00→15:18)
[2022-12-25] MEDS: LORazepam 1 MG TAB PO ×3 (04:06→19:47)
[2022-12-25 07:07] LABS: Absolute Eosinophil Count 0.01 10^3/uL (0.0-0.7); Absolute Lymphocyte Count 0.17 10^3/uL (1.2-3.4); Absolute Monocyte Count 0.49 10^3/uL (0.1-0.8); Absolute Neutrophil Count 4.05 10^3/uL (1.2-6.7); Eosinophils % 0.2; HCT 29.4 % (40.0-50.0); HGB 9.4 g/dL (13.5-17.5); Immature Grans % 2.1; Lymphocytes % 3.5; MCH 30.8 pg (27.0-33.0); MCV 96 fL (80-95); MPV 10.5 fL (8.0-11.0); Monocytes % 10.2; Platelet Count 125 10^3/uL (130-400); RBC 3.05 10^6/uL (4.36-5.78); RDW 13.9 % (11.8-14.1); WBC 4.82 10^3/uL (4.4-10.8)
[2022-12-25 07:10] VITALS: BP 145/83; PULSE 87; TEMP 35.8; O2SAT 97
[2022-12-25 07:17] LABS: Anion Gap 8.2 mmol/L (3-11); BUN 25 mg/dL (7-18); CO2 27.8 mmol/L (21.0-32.0); CREATININE 1.4 mg/dL (0.70-1.30); Calcium 10.1 mg/dL (8.5-10.1); Chloride 103 mmol/L (98-107); Estimated GFR 50.49 (mL/min/1.73m2); Glucose 127 mg/dL (74-106); Magnesium 1.8 mg/dL (1.8-2.4); Potassium 4.8 mmol/L (3.5-5.1); Sodium 139 mmol/L (136-145)
[2022-12-25] MEDS: Dexamethasone 4 MG TAB 8 MG PO (08:34)
[2022-12-25] MEDS: Metoprolol 12.5 MG TAB PO ×2 (08:34→19:47)
[2022-12-25] MEDS: Magnesium Oxide 400 MG TAB PO (08:34)
[2022-12-25] MEDS: Gabapentin 100 MG CAP PO (08:34)
[2022-12-25] MEDS: Potassium Chloride 10 MEQ CAPCR PO (08:34)
[2022-12-25] MEDS: Multivitamin TAB 1 TAB PO (08:34)
[2022-12-25] MEDS: Aspirin E.C. 81 MG TABEC PO (08:34)
--- NOTE | 2022-12-25 10:56 | PT.INNT ---
PT Notes Visit Reasons: Metastatic CA to Brain and Lung Pt refused PTx2 due to not feeling well today and having complaints of his entire body hurting.
[2022-12-25] MEDS: Acetaminophen 500 MG TAB 1000 MG PO (11:39)
[2022-12-25 15:07] VITALS: BP 137/81; PULSE 61; TEMP 36.3; O2SAT 97
[2022-12-25] MEDS: Normal Saline Flush 10 ML SYR IVP (15:18)
--- NOTE | 2022-12-25 16:15 | W.PM.PROGNOT ---
Date of Service Date of service: 12/25/22 Time of Service: 16:15 Assessment and Plan Assessment and plan (1) Falls: Status: Acute Assessment and plan: Secondary to weakness related to new brain metastasis from Hodgkins Lymphoma. He is not safe living alone in his current sitation. PT consulted to assess safety, will likely need placement where there is 24 hour assistance. Care mgrs working on referrals; patient states he wants to go home, but is willing to stay here until he can. (2) Metastasis to brain: Status: Acute Assessment and plan: As above. Dexamethasone started in ED for vasogenic edema, will continue and assess for symptomatic response.. (3) Severe anemia: Status: Acute Assessment and plan: Improved H&H 9.4/29.4 - stable (4) Atrial fibrillation: Status: Chronic Assessment and plan: Paced rhythm today. not anticoagulated due to falls. Continue metoprolol low dose. (5) Coronary atherosclerosis: Assessment and plan: Will continue ASA and statin, though these may be stopped with hospice. (6) CKD (chronic kidney disease) stage 3, GFR 30-59 ml/min: Status: Acute Assessment and plan: stable, at recent baseline Cr. 1.4 (7) DVT prophylaxis: Status: Acute Assessment and plan: High risk for DVT but also for falls, brain bleeding. Continue mechanical prophylaxis (8) Advanced care planning/counseling discussion: Status: Acute Assessment and plan: DNR/DNI. He is planning hospice care when appropriate help or facility can be found. Palliatve consult pending Discussed with Dr Burciaga Subjective Subjective Patient reports: no new complaints, tolerating liquids well, tolerating a regular diet, bowel movement and afebrile; denies diarrhea, nausea, vomiting or shortness of breath Interval history since last seen: Resting comfortably, would like to go home. Family is unable to care for him, he lives alone - see care mgrs note Exam Narrative Exam Narrative: GEN: Alert and oriented, pleasant and cooperative, gives linear history but speech a bit stilted. No acute distress at rest. HEENT: Head atraumatic (dark spot, defect in scalp from old biopsy per patient). Conjunctiva clear, no icterus. PEERL, EOMI. no rhinorrhea. MMM, OP benign. Neck is supple with no masses or lymphadenopathy, trachea midline LUNGS: CTAB with normal effort CV: RRR with 1/6 systolic murmur at RUSB, gallops, or rubs. ABD: +BS, soft, NT/ND EXT: no cyanosis, clubbing, or edema MSK: No joint redness or swelling NEURO: CN 2-12 grossly intact. moves 4 extremities but 4/5 on right arm and leg vs left on my exam. sensation intact to light touch. no tremor or abnormal movemtns. +clonus in ankles. Normal coordination SKIN: No rashes. Abrasion/ulcerations left arm, right knee. Arms with bruises PSYCH: normal mood and affect, gets frustrated with lack of fluency in speech. Objective Last Vital Signs Temp 36.3 C L 12/25/22 15:07 Pulse 61 12/25/22 15:07 Resp 20 12/24/22 22:33 BP 137/81 12/25/22 15:07 Pulse Ox 97 12/25/22 15:07 Laboratory Results - last 24 hr 12/25/22 12/25/22 06:30 06:30 WBC 4.82 RBC 3.05 L Hgb 9.4 L Hct 29.4 L MCV 96 H MCH 30.8 MCHC 32.0 RDW 13.9 Plt Count 125 L MPV 10.5 Immature Gran % 2.1 Neutrophils % 84.0 Lymphocytes % 3.5 Monocytes % 10.2 Eosinophils % 0.2 Basophils % 0.0 Nucleated RBC % 0.0 Absolute Neutrophils 4.05 Absolute Lymphocytes 0.17 L Absolute Monocytes 0.49 Absolute Eosinophils 0.01 Absolute Basophils 0.00 Sodium 139 Potassium 4.8 Chloride 103 Carbon Dioxide 27.8 Anion Gap 8.2 BUN 25 H Creatinine 1.4 H Est GFR (CKD-EPI 2020) 50.49 Glucose 127 H Calcium 10.1 Magnesium 1.8 Time Spent with Patient Time Spent with Patient: 25-34 minutes Time was spent: preparing to see the patient(eg.review tests), obtaining and/or reviewing separately otained hiistory, ordering medications,tests, procedures, referring, communicating with other health day care home provider, indepentently interpreting results, counseling the patient and care coordination
[2022-12-25] MEDS: Rosuvastatin 20 MG TAB 40 MG PO (19:47)
[2022-12-25] MEDS: Nicotine 21 MG/24 HR PATCH TD (20:58)
[2022-12-25 23:14] VITALS: BP 168/76; PULSE 73; RESP 18; TEMP 36.2; O2SAT 100
[2022-12-26] MEDS: LORazepam 1 MG TAB PO ×3 (02:10→11:40)
[2022-12-26] MEDS: QUEtiapine 25 MG TAB 12.5 MG PO (02:46)
[2022-12-26] MEDS: MORPHine 2 MG/ML SYR IVP ×3 (04:37→09:54)
--- NOTE | 2022-12-26 05:21 | NUR.NOTE ---
Nursing Note: pt agitated and restless throughout night. tried ativan with little effect. Reached out to doctor and they prescribed seroquel. after about 30 minutes patient is not essentially a 1:1, constantly trying to crawl out of bed to the floor, throwing off all clothing and blankets. trying to pull out port access. morphine given aswell becauase patient stated pain. this had little effect. Patient completely disorented and not redirectable. extremely angry and agitated. all needs assessed and met. pt stated he just wants to go home or to the store. and that he needs to be to the hospital in the morning. vitals stable and patient safe at this time with oil burner servicer and installer sitting 1:1, wctm.
[2022-12-26 07:27] VITALS: BP 145/72; PULSE 86; RESP 20; TEMP 36.5; O2SAT 92
[2022-12-26] MEDS: Normal Saline Flush 10 ML SYR IVP ×2 (07:49→10:01)
[2022-12-26] MEDS: Multivitamin TAB 1 TAB PO (07:54)
[2022-12-26] MEDS: Metoprolol 12.5 MG TAB PO ×2 (07:54→20:06)
[2022-12-26] MEDS: Magnesium Oxide 400 MG TAB PO (07:54)
[2022-12-26] MEDS: Gabapentin 100 MG CAP PO (07:54)
[2022-12-26] MEDS: Potassium Chloride 10 MEQ CAPCR PO (07:55)
[2022-12-26] MEDS: Dexamethasone 4 MG TAB 8 MG PO (07:55)
[2022-12-26] MEDS: Nicotine 21 MG/24 HR PATCH TD (07:55)
[2022-12-26] MEDS: Aspirin E.C. 81 MG TABEC PO (07:55)
--- NOTE | 2022-12-26 08:34 | NUR.NOTE ---
Nursing Note: This ad writer noted pt's right chest port painful with flush (as preparation for PRN morphine). Attempted to draw w/ no blood return. Pt's primary nurse notified. IV established in left AC and morphine administered. Pt reports relief from back pain.
[2022-12-26] MEDS: diazePAM 10 MG/2 ML SYR 5 MG IVP (11:47)
--- NOTE | 2022-12-26 12:04 | PDOC.CMPRO ---
Date of service: 12/26/22 Time of Service: 12:04 Care Management Progress Note Progress Note Text Progress Note Text: S/O: Antwan was sleeping when CM attempted to meet with him. His RN was present in the room, and stated that he had a difficult time falling asleep, therefore CM did not wake him. CM faxed referrals to several facilities for consideration, with the exception of [facility] facilities, at his request. CM called the [facility], who reported that Antwan is 30% service connected, which does not cover long term care social worker care. CM inquired about the VA paying for his room and board at a facility, if he was to transition to hospice while at a SNF, awaiting a call back. CM will continue to follow. A: Antwan is an 82 year old male admitted to [facility] on 12/23/22 with metastatic cancer to brain and lung. P: Antwan will likely transition to SNF for short term rehab vs long term care social worker care. Referrals are pending at several facilities in [place] and [place]. His transportation will depend on his disposition. He will follow up with his PCP, Palliative care/hospice, and his discharge plan of care. CM will continue to follow.
[2022-12-26 12:28] LABS: Abs Immature Grans 0.34 10^3/uL (0.0-0.06); Absolute Eosinophil Count 0.13 10^3/uL (0.0-0.7); Absolute Lymphocyte Count 0.24 10^3/uL (1.2-3.4); Absolute Monocyte Count 0.71 10^3/uL (0.1-0.8); Basophils % 0.2; HCT 33.9 % (40.0-50.0); HGB 11.3 g/dL (13.5-17.5); Immature Grans % 2.7; Lymphocytes % 1.9; MCH 31.4 pg (27.0-33.0); MCHC 33.3 % (32.0-36.0); MCV 94 fL (80-95); MPV 10.2 fL (8.0-11.0); Monocytes % 5.6; Neutrophils % 88.6; Platelet Count 175 10^3/uL (130-400); RDW-SD 47.9 fL; WBC 12.72 10^3/uL (4.4-10.8)
[2022-12-26 12:29] LABS: Absolute Basophil Count 0.03 10^3/uL (0.0-0.2); Absolute Neutrophil Count 11.27 10^3/uL (1.2-6.7)
[2022-12-26 12:35] LABS: Anion Gap 9.7 mmol/L (3-11); BUN 28 mg/dL (7-18); CO2 28.3 mmol/L (21.0-32.0); CREATININE 1.5 mg/dL (0.70-1.30); Calcium 10.6 mg/dL (8.5-10.1); Chloride 100 mmol/L (98-107); Estimated GFR 46.48 (mL/min/1.73m2); Glucose 143 mg/dL (74-106); Magnesium 1.8 mg/dL (1.8-2.4); Potassium 4.8 mmol/L (3.5-5.1); Sodium 138 mmol/L (136-145)
[2022-12-26] MEDS: HYDROmorphone 2 MG/ML SYR 1 MG IVP ×2 (13:12→19:51)
--- NOTE | 2022-12-26 15:38 | PT.INNT ---
Date of service: 12/26/22 Time of Service: 11:40 PT Notes Visit Reasons: Metastatic CA to Brain and Lung Patient received dilauded per RN Diego, is not alert enough for therapy. This therapist checked back at 1256, 1322, and 1517, and patient was not alert enough for therapy at any of these times. Will try again tomorrow.
--- NOTE | 2022-12-26 17:43 | W.PM.PROGNOT ---
Date of Service Date of service: 12/26/22 Time of Service: 17:43 Assessment and Plan Assessment and plan (1) Falls: Status: Acute Assessment and plan: Secondary to weakness related to new brain metastasis from Hodgkins Lymphoma. He is not safe living alone in his current sitation. PT consulted to assess safety, needs placement where there is 24 hour assistance. Care mgrs working on referrals; patient states he wants to go home, but is willing to stay here until he can, although at times very confused and not oriented. (2) Metastasis to brain: Status: Acute Assessment and plan: As above. Dexamethasone started in ED for vasogenic edema, will continue and assess for symptomatic response.. Dexamethasone decreased to 4 mg, it was just started in ED and he is very confused (3) Severe anemia: Status: Acute Assessment and plan: Improved H&H 9.4/29.4 - stable (4) Atrial fibrillation: Status: Chronic Assessment and plan: Paced rhythm today. not anticoagulated due to falls. Continue metoprolol low dose. (5) Coronary atherosclerosis: Assessment and plan: Will continue ASA and statin, though these may be stopped with hospice. (6) CKD (chronic kidney disease) stage 3, GFR 30-59 ml/min: Status: Acute Assessment and plan: stable, at recent baseline Cr. 1.4 (7) DVT prophylaxis: Status: Acute Assessment and plan: High risk for DVT but also for falls, brain bleeding. Continue mechanical prophylaxis (8) Advanced care planning/counseling discussion: Status: Acute Assessment and plan: DNR/DNI. He is planning hospice care when appropriate help or facility can be found. Palliatve consult pending Discussed with Dr Burciaga Subjective Subjective Patient reports: no new complaints Interval history since last seen: Very anxious, pulling at tubes and IV lines, not oriented at all, I spoke with his brother and he states this has been progressing and no one is available to take care of him. Exam Narrative Exam Narrative: GEN: Alert and disoriented, although, no acute distress at rest. HEENT: Head atraumatic (dark spot, defect in scalp from old biopsy per patient). Conjunctiva clear, no icterus. PEERL, EOMI. no rhinorrhea. MMM, OP benign. Neck is supple with no masses or lymphadenopathy, trachea midline LUNGS: CTAB with normal effort CV: RRR with 1/6 systolic murmur at RUSB, gallops, or rubs. ABD: +BS, soft, NT/ND EXT: no cyanosis, clubbing, or edema MSK: No joint redness or swelling NEURO: CN 2-12 grossly intact. moves 4 extremities but 4/5 on right arm and leg vs left on my exam. sensation intact to light touch. no tremor or abnormal movemtns. +clonus in ankles. Normal coordination SKIN: No rashes. Abrasion/ulcerations left arm, right knee. Arms with bruises PSYCH: normal mood and affect, gets frustrated with lack of fluency in speech. Objective Last Vital Signs Temp 36.5 C 12/26/22 07:27 Pulse 86 12/26/22 07:27 Resp 20 12/26/22 07:27 BP 145/72 H 12/26/22 07:27 Pulse Ox 92 12/26/22 07:27 Laboratory Results - last 24 hr 12/26/22 12/26/22 12:20 12:20 WBC 12.72 H RBC 3.60 L Hgb 11.3 L Hct 33.9 L MCV 94 MCH 31.4 MCHC 33.3 RDW 14.0 Plt Count 175 MPV 10.2 Immature Gran % 2.7 Neutrophils % 88.6 Lymphocytes % 1.9 Monocytes % 5.6 Eosinophils % 1.0 Basophils % 0.2 Nucleated RBC % 0.0 Absolute Neutrophils 11.27 H Absolute Lymphocytes 0.24 L Absolute Monocytes 0.71 Absolute Eosinophils 0.13 Absolute Basophils 0.03 Sodium 138 Potassium 4.8 Chloride 100 Carbon Dioxide 28.3 Anion Gap 9.7 BUN 28 H Creatinine 1.5 H Est GFR (CKD-EPI 2020) 46.48 Glucose 143 H Calcium 10.6 H Magnesium 1.8 Time Spent with Patient Time Spent with Patient: 25-34 minutes Time was spent: preparing to see the patient(eg.review tests), ordering medications,tests, procedures, referring, communicating with other health inspector health care facilities, indepentently interpreting results, counseling the patient and care coordination
[2022-12-26] MEDS: OLANZapine 10 MG VIAL 5 MG IM (18:32)
[2022-12-26] MEDS: Water,Injection,Sterile 10 ML VIAL IM (18:33)
[2022-12-26] MEDS: Prochlorperazine 10 MG TAB PO (20:05)
[2022-12-26] MEDS: QUEtiapine 25 MG TAB PO (20:06)
[2022-12-26] MEDS: Rosuvastatin 20 MG TAB 40 MG PO (20:06)
[2022-12-26 22:55] LABS: Bilirubin Negative (Negative); Blood Trace-intact (Negative); Clarity Clear (Clear); Glucose Negative (Negative); Ketones Negative (Negative); Leukocyte Esterase Negative (Negative); Nitrite Negative (Negative); Urobilinogen 0.2 mg/dL (Up to 0.2)
[2022-12-26 23:19] LABS: Bacteria Rare HPF (Negative); C & S Indicated? No; Crystals Negative HPF (Negative); Epithelial Cells Negative HPF (Negative); Mucus Negative (Negative); RBC 0-2 HPF (0-2); WBC 0-2 HPF (0-5)
[2022-12-27] VITALS (14 sets, daily range): BP systolic 100–177; BP diastolic 61–84; PULSE 61–89; RESP 16–20; TEMP 36.2–36.8; O2SAT 93–97
[2022-12-27] MEDS: OLANZapine 10 MG VIAL 5 MG IM (05:05)
[2022-12-27] MEDS: Aspirin E.C. 81 MG TABEC PO (08:16)
[2022-12-27] MEDS: Dexamethasone 4 MG TAB PO (08:16)
[2022-12-27] MEDS: Multivitamin TAB 1 TAB PO (08:17)
[2022-12-27] MEDS: Gabapentin 100 MG CAP PO (08:17)
[2022-12-27] MEDS: Magnesium Oxide 400 MG TAB PO (08:17)
[2022-12-27] MEDS: QUEtiapine 25 MG TAB PO ×2 (08:17→19:41)
[2022-12-27] MEDS: Nicotine 21 MG/24 HR PATCH TD (08:17)
[2022-12-27] MEDS: Metoprolol 12.5 MG TAB PO ×2 (08:17→19:42)
[2022-12-27] MEDS: Potassium Chloride 10 MEQ CAPCR PO (08:17)
[2022-12-27] MEDS: HYDROmorphone 2 MG/ML SYR 1 MG IVP ×3 (08:17→22:45)
[2022-12-27] MEDS: diphenhydrAMINE 50 MG/ML VIAL 25 MG IVP (10:06)
[2022-12-27] MEDS: Haloperidol 5 MG/ML VIAL 2 MG IM/IV (10:06)
--- NOTE | 2022-12-27 10:47 | PT.INNT ---
Date of service: 12/27/22 Time of Service: 09:42 PT Notes Visit Reasons: Metastatic CA to Brain and Lung Hold per CLAY TRANSPORTER, as patient has been up / agitated all morning and just within the last 10 minutes or so finally relaxed and fell asleep. Sleeping at 13:35 and 16:21 also.
--- NOTE | 2022-12-27 14:29 | CHAPLAIN ---
Antwan was sleeping when I visited. I met two friends of his in the lobby. They has been in to visit him, but did not want to wake him up, so didn't visit. They asked me to visit him. I've tried a couple of times today, but he continues to sleep. His friends picked out a red, white and blue prayer shawl for him (as he's a ) that a dropped off. Antwan has a brother who will likely visit later today, his friends said. Antwan was restless some of yesterday and last night, but is primarily sleeping today.
--- NOTE | 2022-12-27 14:56 | PDOC.CMPRO ---
Date of service: 12/27/22 Time of Service: 14:56 Care Management Progress Note Progress Note Text Progress Note Text: S/O: Antwan remains inpatient. Per RNCC and provider he required increased support last evening and this morning, RN and PT advised he was just now resting; CM permitted him to continue. [facility] called to clinically accept Antwan, they requested Hospice statement-anticipated life limiting condition documentation and retirement care . CM will continue to follow. A: Antwan is an 82 year old male admitted to [facility] on 12/23/22 with metastatic cancer to brain and lung. P: Antwan will likely transition to SNF for short term rehab vs retirement care. Referrals are pending at several facilities in [place] and [place]. His transportation will depend on his disposition. He will follow up with his PCP, Palliative care/hospice, and his discharge plan of care. CM will continue to follow.
[2022-12-27] MEDS: LORazepam 2 MG/ML VIAL 1 MG IVP ×2 (15:07→22:45)
[2022-12-27] MEDS: Rosuvastatin 20 MG TAB 40 MG PO (19:42)
--- NOTE | 2022-12-27 22:56 | PGE_ITS ---
Date of Service Date of service: 12/27/22 Time of Service: 13:00 Assessment and Plan Assessment and plan (1) Falls: Status: Acute Assessment and plan: Secondary to weakness related to new brain metastasis from Hodgkins Lymphoma. He is not safe living alone in his current sitation. PT consulted to assess safety, needs placement where there is 24 hour assistance. Care mgrs working on referrals; patient states he wants to go home, but is willing to stay here until he can, although at times very confused and not oriented. (2) Metastasis to brain: Status: Acute Assessment and plan: As above. Dexamethasone started in ED for vasogenic edema, will continue and assess for symptomatic response.. Continue Dexamethasone 4 mg (3) Severe anemia: Status: Acute Assessment and plan: Improved H&H - stable (4) Atrial fibrillation: Status: Chronic Assessment and plan: Paced rhythm today. not anticoagulated due to falls. Continue metoprolol low dose. (5) Coronary atherosclerosis: Assessment and plan: Will continue ASA and statin, though these may be stopped with hospice. (6) CKD (chronic kidney disease) stage 3, GFR 30-59 ml/min: Status: Acute Assessment and plan: stable, at recent baseline Cr. 1.4 (7) DVT prophylaxis: Status: Acute Assessment and plan: High risk for DVT but also for falls, brain bleeding. Continue mechanical prophylaxis (8) Advanced care planning/counseling discussion: Status: Acute Assessment and plan: DNR/DNI. He is planning hospice care when appropriate help or facility can be found. Palliatve consult pending Discussed with Dr Burciaga Subjective Subjective Patient reports: no new complaints, tolerating liquids well, tolerating a regular diet, voiding w/o difficulty (indwelling urinary catheter in place, draining clear yellow urine. ) and afebrile; denies bowel movement, diarrhea or nausea Interval history since last seen: Sleeping three separate visits. Appears comfortable, sitter at bedside s/t his confusion and pulling at tubes. Exam Narrative Exam Narrative: GEN: Alert and disoriented, although, no acute distress at rest. HEENT: Head atraumatic (dark spot, defect in scalp from old biopsy per patient). Conjunctiva clear, no icterus. PEERL, EOMI. no rhinorrhea. MMM, OP benign. Neck is supple with no masses or lymphadenopathy, trachea midline LUNGS: CTAB with normal effort CV: RRR with 1/6 systolic murmur at RUSB, gallops, or rubs. ABD: +BS, soft, NT/ND EXT: no cyanosis, clubbing, or edema MSK: No joint redness or swelling NEURO: CN 2-12 grossly intact. moves 4 extremities but 4/5 on right arm and leg vs left on my exam. sensation intact to light touch. no tremor or abnormal movemtns. +clonus in ankles. Normal coordination SKIN: No rashes. Abrasion/ulcerations left arm, right knee. Arms with bruises PSYCH: normal mood and affect, gets frustrated with lack of fluency in speech. Objective Last Vital Signs Temp 36.7 C 12/27/22 22:39 Pulse 71 12/27/22 22:39 Resp 16 12/27/22 22:39 BP 126/75 12/27/22 22:39 Pulse Ox 97 12/27/22 22:39 Laboratory Results - last 24 hr 12/26/22 20:06 Urine Color Yellow Urine Clarity Clear Urine pH 6.0 Ur Specific [place] 1.010 Urine Protein 30 H Urine Ketones Negative Urine Blood Trace-intact H Urine Nitrite Negative Urine Bilirubin Negative Urine Urobilinogen 0.2 Ur Leukocyte Esterase Negative Urine RBC 0-2 Urine WBC 0-2 Ur Epithelial Cells Negative Urine Crystals Negative Urine Bacteria Rare Urine Mucus Negative Ur Culture Indicated? No Urine Glucose Negative Time Spent with Patient Time Spent with Patient: 25-34 minutes Time was spent: preparing to see the patient(eg.review tests), ordering medications,tests, procedures, referring, communicating with other health progressive care nurse, indepentently interpreting results, counseling the patient and care coordination
[2022-12-28 01:30] VITALS: BP 102/65; PULSE 60; RESP 16; TEMP 36.7
[2022-12-28 03:30] VITALS: BP 100/63; PULSE 60; RESP 16; TEMP 36.7
[2022-12-28] MEDS: LORazepam 2 MG/ML VIAL 1 MG IVP ×3 (04:00→20:45)
[2022-12-28] MEDS: HYDROmorphone 2 MG/ML SYR 1 MG IVP ×4 (05:01→20:25)
[2022-12-28 05:30] VITALS: BP 100/63; PULSE 60; RESP 16; TEMP 36.7
[2022-12-28 07:28] LABS: Abs Immature Grans 0.18 10^3/uL (0.0-0.06); Absolute Basophil Count 0.01 10^3/uL (0.0-0.2); Absolute Eosinophil Count 0.05 10^3/uL (0.0-0.7); Absolute Monocyte Count 1.83 10^3/uL (0.1-0.8); Basophils % 0.1; Eosinophils % 0.4; HCT 39.4 % (40.0-50.0); Immature Grans % 1.6; Lymphocytes % 3.8; MCH 31.3 pg (27.0-33.0); MCV 95 fL (80-95); MPV 10.9 fL (8.0-11.0); Neutrophils % 78.1; RBC 4.16 10^6/uL (4.36-5.78); RDW 14.1 % (11.8-14.1); RDW-SD 48.4 fL; WBC 11.46 10^3/uL (4.4-10.8)
[2022-12-28 07:32] LABS: Absolute Lymphocyte Count 0.44 10^3/uL (1.2-3.4); Absolute Neutrophil Count 8.95 10^3/uL (1.2-6.7)
[2022-12-28] MEDS: Normal Saline Flush 10 ML SYR IVP ×3 (07:33→18:42)
[2022-12-28] MEDS: Aspirin E.C. 81 MG TABEC PO (07:34)
[2022-12-28] MEDS: Dexamethasone 4 MG TAB PO (07:34)
[2022-12-28] MEDS: Potassium Chloride 10 MEQ CAPCR PO (07:34)
[2022-12-28] MEDS: Metoprolol 12.5 MG TAB PO ×2 (07:34→20:55)
[2022-12-28] MEDS: Magnesium Oxide 400 MG TAB PO (07:34)
[2022-12-28] MEDS: Multivitamin TAB 1 TAB PO (07:34)
[2022-12-28] MEDS: Gabapentin 100 MG CAP PO (07:34)
[2022-12-28] MEDS: QUEtiapine 25 MG TAB PO ×2 (07:35→20:55)
[2022-12-28] MEDS: Nicotine 21 MG/24 HR PATCH TD (07:35)
[2022-12-28 07:36] VITALS: BP 117/77; PULSE 79; RESP 16; TEMP 36.5; O2SAT 96
[2022-12-28 07:45] LABS: Anion Gap 8.4 mmol/L (3-11); BUN 35 mg/dL (7-18); CO2 30.6 mmol/L (21.0-32.0); CREATININE 1.7 mg/dL (0.70-1.30); Calcium 10.6 mg/dL (8.5-10.1); Chloride 100 mmol/L (98-107); Glucose 98 mg/dL (74-106); Magnesium 2.1 mg/dL (1.8-2.4); Potassium 4.2 mmol/L (3.5-5.1); Sodium 139 mmol/L (136-145)
[2022-12-28 08:52] LABS: Diff Comment Agrees w/ Instrument; RBC Morphology Normal
[2022-12-28 08:53] LABS: Platelet Count 162 10^3/uL (130-400)
--- NOTE | 2022-12-28 11:25 | CMPROGNOTE_ITS ---
Date of service: 12/28/22 Time of Service: 11:25 Care Management Progress Note Progress Note Text Progress Note Text: S/O: Antwan was lying in bed when CM met with him. His brother, Kai was in the room. Kai assisted with filling out an admission application for [facility], where Antwan has been clinically accepted. Antwan stated that he was feeling uncomfortable, and appeared restless in bed, which CM relayed to his RN, who promptly assessed him. CM spoke to Claudette, Screw Machine Tender at the [facility], who stated that the [place] will pay for the room and board at any [place] contracted facility. CM faxed the requested documentation to [facility], and will follow up tomorrow regarding his potential admission. CM will continue to follow. A: Antwan is an 82 year old male admitted to [facility] on 12/23/22 with metastatic cancer to brain and lung. P: Antwan will likely transition to SNF for short term rehab vs jail care. Referrals are pending at several facilities in [place] and [place]. His transportation will depend on his disposition. He will follow up with his PCP, Palliative care/hospice, and his discharge plan of care. CM will continue to follow.
--- NOTE | 2022-12-28 11:25 | PDOC.CMPRO ---
Date of service: 12/28/22 Time of Service: 11:25 Care Management Progress Note Progress Note Text Progress Note Text: S/O: Antwan was lying in bed when CM met with him. His brother, Kai was in the room. Kai assisted with filling out an admission application for [facility], where Antwan has been clinically accepted. Antwan stated that he was feeling uncomfortable, and appeared restless in bed, which CM relayed to his RN, who promptly assessed him. CM spoke to Claudette, Deputy Sheriff Building Guard at the [facility], who stated that the [place] will pay for the room and board at any [place] contracted facility. CM faxed the requested documentation to [facility], and will follow up tomorrow regarding his potential admission. CM will continue to follow. A: Antwan is an 82 year old male admitted to [facility] on 12/23/22 with metastatic cancer to brain and lung. P: Antwan will likely transition to SNF for short term rehab vs group home care. Referrals are pending at several facilities in [place] and [place]. His transportation will depend on his disposition. He will follow up with his PCP, Palliative care/hospice, and his discharge plan of care. CM will continue to follow.
[2022-12-28 15:01] VITALS: BP 104/68; PULSE 68; RESP 18; TEMP 36; O2SAT 93
--- NOTE | 2022-12-28 15:33 | PT.INTREAT ---
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 Therapeutic procedures 84995 15mins: max verbal and tactile cue for guidance with trapeze pull ups, bed mobility going side to side max A verbally/tactile, pt not able to follow instructions but did not complain with BLE PROM in SLR, Straight leg adb/add, knee to chest, clamshells, heel slides, heel cord stretch [id number] each. pt bed alarm setup post session for pt safety. Assessment: pt pleasantly confused, not able to follow commands, did not stimulate too much to prevent pt from getting agitated. Plan: will continue with Physical Therapy intervention for strengthening, bed mobility, transfers, gait, stairs, balance training, use of assistive device as per pt cognition allows Treatment time; 3:15-3:30pm 35721 therapeutic procedures.
--- NOTE | 2022-12-28 16:06 | W.PM.PROGNOT ---
Date of Service Date of service: 12/28/22 Time of Service: 16:06 Assessment and Plan Assessment and plan (1) Metastasis to brain: Status: Acute Assessment and plan: Dexamethasone with taper for vasogenic edema, will continue and assess for symptomatic response.. 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 He is not safe living alone in his current sitation. PT consulted to assess safety, needs placement where there is 24 hour assistance. Care mgrs working on referrals; patient states he wants to go home, but is willing to stay here until he can, although at times very confused and not oriented. (3) Severe anemia: Status: Acute Assessment and plan: stable (4) Atrial fibrillation: Status: Chronic Assessment and plan: Paced rhythm today. not anticoagulated due to falls. Continue metoprolol low dose. (5) Coronary atherosclerosis: Assessment and plan: Will continue ASA and statin, though these may be stopped with hospice. (6) CKD (chronic kidney disease) stage 3, GFR 30-59 ml/min: Status: Acute Assessment and plan: stable, at recent baseline Cr. 1.4 (7) DVT prophylaxis: Status: Acute Assessment and plan: High risk for DVT but also for falls, brain bleeding. Continue mechanical prophylaxis (8) Advanced care planning/counseling discussion: Status: Acute Assessment and plan: DNR/DNI. He is planning hospice care when appropriate help or facility can be found. Palliatve consult pending Discussed with Dr Burciaga Subjective Subjective Patient reports: no new complaints and afebrile; denies shortness of breath Interval history since last seen: confusion in the evenings/night Exam Const General: cooperative, comfortable, no acute distress and ill appearing chronically (appears fatigued) [facility] Head: normal to inspection Ears: hearing grossly normal bilaterally Mouth: mucous membranes dry (appears dry) Chest Chest: normal inspection of the chest Resp Effort & Inspection: normal respiratory effort and no respiratory distress Auscultation: no wheezes Cardio Rate: regular rate Heart Sounds: murmur systolic at the right sternal border GI Inspection: normal to inspection and non-distended Palpation: soft, no guarding and nontender Skin General skin exam: no rashes or lesions noted Neuro General: patient alert and patient awake Motor: muscle tone normal throughout Extrem General: normal to inspection, capillary refill normal, no pedal edema and no calf tenderness Psych Appearance: grossly normal Objective Last Vital Signs Temp 36.0 C L 12/28/22 15:01 Pulse 68 12/28/22 15:01 Resp 18 12/28/22 15:01 BP 104/68 12/28/22 15:01 Pulse Ox 93 12/28/22 15:01 Laboratory Results - last 24 hr 12/28/22 12/28/22 06:05 06:05 WBC 11.46 H RBC 4.16 L Hgb 13.0 L Hct 39.4 L MCV 95 MCH 31.3 MCHC 33.0 RDW 14.1 Plt Count 162 MPV 10.9 Immature Gran % 1.6 Neutrophils % 78.1 Lymphocytes % 3.8 Monocytes % 16.0 Eosinophils % 0.4 Basophils % 0.1 Nucleated RBC % 0.0 Absolute Neutrophils 8.95 H Absolute Lymphocytes 0.44 L Absolute Monocytes 1.83 H Absolute Eosinophils 0.05 Absolute Basophils 0.01 RBC Morphology Normal Sodium 139 Potassium 4.2 Chloride 100 Carbon Dioxide 30.6 Anion Gap 8.4 BUN 35 H Creatinine 1.7 H Est GFR (CKD-EPI 2020) 40.00 Glucose 98 Calcium 10.6 H Magnesium 2.1 Time Spent with Patient Time Spent with Patient: 25-34 minutes Time was spent: preparing to see the patient(eg.review tests) and care coordination
[2022-12-28] MEDS: Acetaminophen 500 MG TAB 1000 MG PO (18:51)
[2022-12-28] MEDS: Rosuvastatin 20 MG TAB 40 MG PO (20:55)
[2022-12-28 22:27] VITALS: BP 124/83; PULSE 75; RESP 18; TEMP 36.3; O2SAT 96
[2022-12-29] MEDS: HYDROmorphone 2 MG/ML SYR 1 MG IVP ×4 (04:30→19:43)
[2022-12-29] MEDS: LORazepam 2 MG/ML VIAL 1 MG IVP ×5 (06:00→22:24)
[2022-12-29] MEDS: Normal Saline Flush 10 ML SYR IVP ×4 (07:50→14:51)
[2022-12-29] MEDS: Gabapentin 100 MG CAP PO (07:53)
[2022-12-29] MEDS: Aspirin E.C. 81 MG TABEC PO (07:53)
[2022-12-29] MEDS: QUEtiapine 25 MG TAB PO ×2 (07:54→19:44)
[2022-12-29] MEDS: Multivitamin TAB 1 TAB PO (07:54)
[2022-12-29] MEDS: Metoprolol 12.5 MG TAB PO (07:54)
[2022-12-29] MEDS: Potassium Chloride 10 MEQ CAPCR PO (07:54)
[2022-12-29] MEDS: Magnesium Oxide 400 MG TAB PO (07:54)
[2022-12-29] MEDS: Nicotine 21 MG/24 HR PATCH TD (07:55)
[2022-12-29] MEDS: Dexamethasone 4 MG TAB PO (07:55)
[2022-12-29 08:26] VITALS: BP 136/80; PULSE 72; TEMP 36.2; O2SAT 95
--- NOTE | 2022-12-29 11:41 | PCNE_ITS ---
Date of service: 12/29/22 Time of Service: 11:41 History of Present Illness Narrative: Mr. Savage is an 82-year-old gentleman from [place], [place] with history of Hodgkin's lymphoma, chronic atrial fibrillation, ASCVD. Previously treated for the lymphoma at [facility]. Palliative care team has previously met with him during admission for dehydration from chemotherapy (September 2022) to discuss Goals of care. As per admission note, subsequent to my last meeting with him, he decided to forego further chemotherapy. Over the last few weeks has had increasing falls. Had met with hospice requesting admission to hospice. However it was declined because to hospice. However hospice declined to admit him because they felt he had inadequate support at home and needed to be cared for in facility. Subsequent to that had several falls and on December 23 presented to the ED after another fall. Head imaging revealed newly recognized left frontal lobe lesion with surrounding edema, probably metastasis. Admitted to [facility]. Started on dexamethasone. Initial physical exam on December 23 noted right upper and lower extremity weakness 4/5 compared to the left side. See previous note for more in-depth history. Palliative care team has been asked to consult regarding goals of care, specifically whether patient and family are ready to transition to comfort measures only given clinical change in last few days and recommendations whether to keep patient here for WHEEL BRAIDER, if prognosis only a few days, or if he should be transferred to SNF, if prognosis more than a few days. Patient unable to provide any history. Initially no family available in person or by phone. Notes described that initially he was awake and alert but intermittently confused. Over the last 24 to 36 hours becoming more sedated, less talkative and intermittently agitated. Several notes describe that he appears restless and uncomfortable. However he is denied any pain or is unable to identify cause of his restlessness when asked. Hospitalist team questions whether he is entering active dying stage and has dis continued several of his oral medications. Over the last 24 hours he has received IV hydromorphone (4 mg total) and IV lorazepam (5 mg total). Due to increased confusion, there was concern over ster oid psychosis and dexamethasone was decreased from 8 to 4 mg daily. Care Team: Primary Care physician: Olegario Harkins MD ([facility]) Oncology: Dr. 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 Worked until Cancer dx. 4 times and 3 times, (2011 ). Estranged from 4 biological children (Absolutely no contact, [facility] confirms that he does not want them to be contacted). No hobbies.? States that since he was diagnosed with lymphoma 2 years ago I am just working on survive.? Lives alone in apartment (15 stairs to apartment), dog 10 months ago. Brother Kai lives in same town.? Nieces and nephews live in [place] nearby and he does have relationship with them. Likes to walk Resources: Impression of currents health status: What bothers you the most: What worries you the most: What's important: What would you do if you can no longer live at home? [facility] in [place].? This is an acceptable option to him. Current information preferences: Function: Ambulation: No aids ADLs: Independent iADLs:Independent, including financial. Hearing: Pretty good Vision:Good Palliative Performance Scale % Ambulation Activity and Evidence of Disease Self Care Intake Level of Consciousness 100 Full Normal activity, no evidence of disease Full Normal Full 90 Full Normal activity, some evidence of disease Full Normal Full 80 Full Normal activity with effort, some evidence of disease Full Normal or reduced Full 70 Reduced Unable to do normal work, some evidence of disease Full Normal or reduced Full 60 Reduced Unable to do hobby or some housework, significant disease Occasional assist necessary Normal or reduced Full or confusion 50 Mainly sit/lie Unable to do any work, extensive disease Considerable assistance required Normal or reduced Full or confusion 40 Mainly in bed Unable to do any work, extensive disease Mainly assistance Normal or reduced Full, drowsy, or confusion 30 Totally bed bound Unable to do any work, extensive disease Total care Reduced Full, drowsy, or confusion 20 Totally bed bound Unable to do any work, extensive disease Total care Minimal sips Full, drowsy, or confusion 10 Totally bed bound Unable to do any work, extensive disease Total care Mouth care only Drowsy or coma 0 - - - - Patient Score: Spiritual history:Believes in god, not churchgoer. Prayer helps. Prays nightly.? Palliative review of systems: (Pt sedated, answers simple questions below, limited) Pain: Denies Thirsty, cold Udoes not answer following. Dyspnea: GI symptoms: Appetite: Depression: Anxiety: None Emotional Distress: Spiritual/Existential Distress: Labs: ALbumin 3.0 Cr 1.7 (within recent usual range 1.4-1.8) LFTS: NL ANemia resolved (off chemo?) Head CT within last week:IMPRESSION: Finding suspicious for a mass, presumed metastatic lesion in the left frontal lobe.? Hemorrhage. Advanced Care Planning: Advanced Directive: Pt previously reported that he had a AD in [place] that says that if there is no hope, pull the plug; We requested and [facility] could not find document Health Care Agent:Kai Savage (older brother) Jonas.Tita and Miles Ritchie are alternates ([place]) COLST: None.?Requested DNR/DNI at the beginning of this hopsital admission Limitations: If I am a vegetable I want them to pull the plug Assessment and Plan Assessment and plan (1) Advanced care planning/counseling discussion: Status: Acute Assessment and plan: 82-year-old gentleman with intracerebral mass most likely metastatic lesion from known Hodgkin's lymphoma now with worsening mental status with sleepiness, confusion, and showing signs of progressive right hemiparesis despite being started on dexamethasone. Progression of his symptoms in light of receiving steroids may indicate some bleeding around the brain lesion. His prognosis is quite poor. He is unable to participate in decision-making at this time. Patient ready agreed to switch to DNR/DNI from full code about a week ago. Preliminary at 13:00: Discussed with hospitalist Nicol, case management. Attempted to contact healthcare agent/brother Antony x2 with no response yet. My recommendation to the family would be that patient be transitioned to comfort measures only. Difficult to predict prognosis, but best guess would be a few days to 1 to 2 weeks. Options are for him to remain at [facility] on comfort measures only versus being transferred to SNF and admitted to hospice as well. 15:00 : PC with brother antony: -He wants us to offer comfort measures only. He reiterates patients wishes. He understands that it is his end of life. -He does not want to visit today or see his brother again. Feels uncomfortable with seeing my brother like that. Part of counseling and listening. Offered phone call from chaplain Morrow, he declined. -He prefers that brother be kept at [facility] for end of life if possible. [facility] is closer than the SNF in [place]. (Although he is not planning to come and visit his brother again). _I asked again about patient's children. Brother reminds me of AD/HCA form. INdeed clearly states that four children are not to be informed. COLST completed reflecting DNR, with consent obtained from Antony Savage. I will ask Joselin Reynoso of case management to reach out to him to offer additional support and help with grieving process. Recommend following: -Transition to hospice medications. -If unable to take p.o. and no IV access, suggest getting medications via subcutaneous delivery. - Total of 46 minutes or more spent today on Advance Care Planning. Patient and family participated voluntarily. Advance care planning may include (not limited to) explanation and discussion of advance directives, choosing and appointing healthcare agents, alternatives to various ACP tools, discussion of (and if indicated, completion of) COLST form, discussion of patient's values and overall goals for treatment, palliative and disease directive care options, ways to avoid hospital readmission including hospice discussions, care preferences should the patient's several other adverse health events. See today's palliative care note for additional information. (2) Hodgkins lymphoma: Status: Chronic (3) Metastasis to brain: Status: Acute (4) Falls: Status: Acute PFSH All Active Problems (Updated 12/23/22 @ 23:25 by Jose Richardson) CKD (chronic kidney disease) stage 3, GFR 30-59 ml/min (Acute) DVT prophylaxis (Acute) Fall (Acute) Knee pain (Acute) Metastasis to brain (Acute) Falls (Acute) Debility (Acute) Dehydration (Acute) Severe anemia (Acute) Advanced care planning/counseling discussion (Acute) Atrial fibrillation (Chronic) Port-A-Cath in place (Acute) BPH (benign prostatic hyperplasia) (Chronic) Essential hypertension (Acute) Hypokalemia (Acute) Hypomagnesemia (Acute) Hodgkins lymphoma (Chronic) Medical History (Updated 12/23/22 @ 23:25 by Jose Richardson) Coronary atherosclerosis Palliative care encounter Surgical History History of tonsillectomy Pacemaker Status post coronary artery bypass graft (~1995) Family History Father , age 54 from CAD Heart disease Paternal Grandfather , in his 50's from CAD Heart disease Social History (Updated 12/23/22 @ 23:05 by Jose Richardson) Smoking/Tobacco Use Status: Current every day Tobacco Type: cigarettes Years smoked: 64 Tobacco: How many years used: 64 Smoking risk assessment performed?: Yes Reason tobacco screening was not done: limited life expectancy Alcohol Intake: never Drug use: Never Substance use type: does not use Housing: apartment Do you feel safe at home: Yes Do you feel safe in your relationship?: Yes Additional Social history: Lives alone in [place] in 2nd floor apartment. Army x 22 years. Brother in [facility] Exam Narrative Exam Narrative: Initially sleeping. Did open eyes slowly to sound and gentle touch. Answers yes and no to a few questions, does not respond to others. Does lift arms when asked to. Quickly goes back to sleep when left alone. Breathing comfortably. Mucous membranes are still moist. Can lift his left arm up to 120 degrees off the bed actively. Has some slight movement of his right fingers but cannot lift the right arm off the bed. When the arm is lifted for him, he cannot hold it up. We can grasp on the right compared to strong on the left. Unable to test lower extremities. Toes, bilaterally with Babinski testing. Results Last Vital Signs Temp 36.2 C L 12/29/22 08:26 Pulse 72 12/29/22 08:26 Resp 18 12/28/22 22:27 BP 136/80 12/29/22 08:26 Pulse Ox 95 12/29/22 08:26 Labs 12/28/22 06:05 12/28/22 06:05
[2022-12-29] MEDS: Acetaminophen 500 MG TAB 1000 MG PO (11:51)
--- NOTE | 2022-12-29 12:00 | CMPROGNOTE_ITS ---
Date of service: 12/29/22 Time of Service: 12:00 Care Management Progress Note Progress Note Text Progress Note Text: S/O: Antwan was lying in bed when CM attempted to meet with him. He was naked, covered by a blanket that he has been pulling at/off. His RN was in the room and stated that he has been very restless and uncomfortable. He appeared comfortable at the time of this visit. Antwan met with palliative care today, who also spoke to his brother, who feels that it is appropriate for Antwan to be on comfort measures. CM faxed documentation to [facility] which was requested in order to confirm that he is accepted at their facility. CM will follow up with [facility] and [facility] to determine if he will be able to transition to [facility] for Hospice, although he may remain at [facility] for end of life care, if the provider feels that he is imminent. Kai has expressed that he does not feel that he can visit and see his brother in this condition. CM will continue to follow. A: Antwan is an 82 year old male admitted to [facility] on 12/23/22 with metastatic cancer to brain and lung. P: Antwan will likely transition to SNF for short term rehab vs termite treater care. Referrals are pending at several facilities in [place] and [place]. His transportation will depend on his disposition. He will follow up with his PCP, Palliative care/hospice, and his discharge plan of care. CM will continue to follow.
[2022-12-29] MEDS: Lidocaine 2% Jelly 6 ML SYR TP (14:44)
--- NOTE | 2022-12-29 17:25 | PGE_ITS ---
Date of Service Date of service: 12/29/22 Time of Service: 17:25 Assessment and Plan Assessment and plan (1) Comfort measures only status: Status: Acute Assessment and plan: seen by palliative today, please see note. in brief, using shared decision making with his brother and palliative transitioned to comfort care per patient previous wishes. case management will be following for discharge planning for end of life care. referrals placed and awaiting response from [facility]. discussed with Dr Godfrey Subjective Subjective Patient reports: denies tolerating liquids well or tolerating a regular diet Interval history since last seen: patient remains confused Exam Const General: no acute distress and ill appearing chronically (appears fatigued) Orientation: confused HENHI Head: normal to inspection Mouth: mucous membranes dry (appears dry) Chest Chest: normal inspection of the chest Resp Effort & Inspection: normal respiratory effort and no respiratory distress Auscultation: no wheezes Cardio Rate: regular rate Heart Sounds: murmur systolic at the right sternal border GI Inspection: normal to inspection and non-distended Palpation: soft and nontender Skin General skin exam: no rashes or lesions noted Neuro Motor: muscle tone normal throughout Extrem General: normal to inspection, capillary refill normal, no pedal edema and no calf tenderness Objective Last Vital Signs Temp 36.2 C L 12/29/22 08:26 Pulse 72 12/29/22 08:26 Resp 18 12/28/22 22:27 BP 136/80 12/29/22 08:26 Pulse Ox 95 12/29/22 08:26 Time Spent with Patient Time Spent with Patient: 25-34 minutes Time was spent: preparing to see the patient(eg.review tests), ordering medic ations,tests, procedures, referring, communicating with other health care coordination manager and care coordination
[2022-12-30] MEDS: HYDROmorphone 2 MG/ML SYR 1 MG IVP ×2 (02:05→12:22)
[2022-12-30] MEDS: LORazepam 2 MG/ML VIAL 1 MG IVP ×3 (02:05→12:24)
[2022-12-30] MEDS: Nicotine 21 MG/24 HR PATCH TD (08:22)
[2022-12-30] MEDS: QUEtiapine 25 MG TAB PO ×2 (08:23→19:50)
--- NOTE | 2022-12-30 09:07 | PDOC.CMPRO ---
Date of service: 12/30/22 Time of Service: 09:07 Care Management Progress Note Progress Note Text Progress Note Text: S/O: Antwan was sitting up in bed when CM met with him. He had just finished eating lunch, which his VENEER GLUE SPREADER was assisting with. Antwan stated that he is more comfortable today. CM discussed his plan to transition to [facility] in [place], [place]. Per Jasmine at [facility], [facility] requested additional [facility] today, which was faxed to Jasmine. Jasmine later stated that it has been submitted to the [facility] for financial approval, awaiting determination. Jasmine stated that she will reach out on Monday with an update. JERI will continue to follow. A: Antwan is an 82 year old male admitted to [facility] on 12/23/22 with metastatic cancer to brain and lung. P: [facility] will likely transition to SNF vs remain at [facility] for end of life care. Clinically accepted at [facility]; working with the [facility] to provide financial approval. His transportation will depend on his disposition. He will follow up with his PCP, Palliative care/hospice, and his discharge plan of care. CM will continue to follow.
[2022-12-30] MEDS: Acetaminophen 500 MG TAB 1000 MG PO (15:11)
--- NOTE | 2022-12-30 15:15 | W.PM.PROGNOT ---
Date of Service Date of service: 12/30/22 Time of Service: 15:15 Assessment and Plan Assessment and plan (1) Comfort measures only status: Status: Acute Assessment and plan: followed by palliative, will continue comfort care per brothers, care team, and patient previous wishes. case management will be following for discharge planning for end of life care. referrals placed and awaiting response from [facility]. scopolamine patch initiated, bolus pain medication increased for better symptom management discussed with Dr Godfrey Subjective Subjective Patient reports: no new complaints Interval history since last seen: still taking some PO, Exam Const General: no acute distress and ill appearing chronically (appears fatigued) Orientation: confused [facility] Head: normal to inspection Mouth: mucous membranes dry (appears dry) Chest Chest: normal inspection of the chest Resp Effort & Inspection: normal respiratory effort and no respiratory distress Auscultation: no wheezes Cardio Rate: regular rate Heart Sounds: murmur systolic at the right sternal border GI Inspection: normal to inspection and non-distended Palpation: soft and nontender Skin General skin exam: no rashes or lesions noted Neuro Motor: muscle tone normal throughout Extrem General: normal to inspection, capillary refill normal, no pedal edema and no calf tenderness Objective Last Vital Signs Temp 36.2 C L 12/29/22 08:26 Pulse 72 12/29/22 08:26 Resp 18 12/28/22 22:27 BP 136/80 12/29/22 08:26 Pulse Ox 95 12/29/22 08:26 Time Spent with Patient Time Spent with Patient: <25 minutes Time was spent: preparing to see the patient(eg.review tests), ordering medications,tests, procedures and referring, communicating with other health critical care physician assistant
[2022-12-30] MEDS: Scopolamine 1 MG/3 DAYS PATCH TD (15:40)
[2022-12-30] MEDS: HYDROmorphone 2 MG/ML SYR IVP ×2 (17:36→19:50)
[2022-12-31] MEDS: HYDROmorphone 2 MG/ML SYR IVP ×4 (02:03→19:23)
[2022-12-31] MEDS: QUEtiapine 25 MG TAB PO ×2 (08:52→19:23)
[2022-12-31] MEDS: Nicotine 21 MG/24 HR PATCH TD (08:52)
--- NOTE | 2022-12-31 12:04 | PGE_ITS ---
Date of Service Date of service: 12/31/22 Time of Service: 12:04 Assessment and Plan Assessment and plan (1) Comfort measures only status: Status: Acute Assessment and plan: followed by palliative, will continue comfort care per brothers, care team, and patient previous wishes. case management will be following for discharge planning for end of life care. referrals placed and awaiting response from [facility]. scopolamine patch initiated, pain managed with better control of symptoms, adjust as needed. discussed with Dr Godfrey Subjective Subjective Patient reports: no new complaints, feels better, pain is less, tolerating liquids well, tolerating a regular diet and afebrile; denies shortness of breath Interval history since last seen: responding well today, no pain noted. Exam Const General: no acute distress Orientation: confused HENMT Head: normal to inspection Mouth: mucous membranes dry (appears dry) Chest Chest: normal inspection of the chest Resp Effort & Inspection: normal respiratory effort and no respiratory distress Auscultation: no wheezes Cardio Rate: regular rate (radial) GI Inspection: normal to inspection and non-distended Palpation: soft and nontender Skin General skin exam: no rashes or lesions noted Neuro Motor: muscle tone normal throughout Extrem General: normal to inspection, capillary refill normal, no pedal edema and no calf tenderness Objective Last Vital Signs Temp 36.2 C L 12/29/22 08:26 Pulse 72 12/29/22 08:26 Resp 18 12/28/22 22:27 BP 136/80 12/29/22 08:26 Pulse Ox 95 12/29/22 08:26 Time Spent with Patient Time Spent with Patient: <25 minutes Time was spent: preparing to see the patient(eg.review tests) and care coordination
[2022-12-31] MEDS: LORazepam 2 MG/ML VIAL 1 MG IVP ×2 (12:16→14:48)
[2023-01-01] MEDS: LORazepam 2 MG/ML VIAL 1 MG IVP ×5 (03:24→20:17)
[2023-01-01] MEDS: HYDROmorphone 2 MG/ML SYR IVP ×5 (03:24→20:17)
--- NOTE | 2023-01-01 03:55 | NUR.NOTE ---
Nursing Note: pt seen sitting crosslegged on bed, with head on feet sleeping. pt woken up and assessed, unable to have conversation, stable. wctm.
[2023-01-01] MEDS: Nicotine 21 MG/24 HR PATCH TD (08:07)
[2023-01-01] MEDS: QUEtiapine 25 MG TAB PO (08:08)
--- NOTE | 2023-01-01 16:44 | W.PM.PROGNOT ---
Date of Service Date of service: 01/01/23 Time of Service: 16:45 Assessment and Plan Assessment and plan (1) Comfort measures only status: Status: Acute Assessment and plan: followed by palliative, will continue comfort care per brothers, care team, and patient previous wishes. case management will be following for discharge planning for end of life care. referrals placed and awaiting response from [facility], [place]. scopolamine patch initiated, pain managed with better control of symptoms, adjust as needed. discussed with Dr Godfrey Subjective Subjective Patient reports: no new complaints Exam Const General: no acute distress Orientation: confused HENMT Head: normal to inspection Mouth: mucous membranes dry (appears dry) Chest Chest: normal inspection of the chest Resp Effort & Inspection: normal respiratory effort and no respiratory distress Cardio Rate: regular rate (radial) GI Inspection: normal to inspection Palpation: soft and nontender Skin General skin exam: no rashes or lesions noted Neuro Motor: muscle tone normal throughout Extrem General: normal to inspection, capillary refill normal, no pedal edema and no calf tenderness Objective Last Vital Signs Temp 36.2 C L 12/29/22 08:26 Pulse 72 12/29/22 08:26 Resp 18 12/28/22 22:27 BP 136/80 12/29/22 08:26 Pulse Ox 95 12/29/22 08:26 Time Spent with Patient Time Spent with Patient: <25 minutes Time was spent: preparing to see the patient(eg.review tests) and referring, communicating with other health family day care provider
[2023-01-02] MEDS: LORazepam 2 MG/ML VIAL 1 MG IVP ×5 (03:08→13:56)
[2023-01-02] MEDS: HYDROmorphone 2 MG/ML SYR IVP ×5 (03:08→13:56)
--- NOTE | 2023-01-02 04:47 | NUR.NOTE ---
Nursing Note: Upon beginning of shift, pt sounded wet, informed CC of this change and Dr. Macias ordered Atropine drops to dry secretions, place pt in semi stokes's position. Medication effective. Later attempted giving patient water drops via straw, however, pt immediately sounded wet. Pt given another dose of atropine at this time. Giving water via sponge swab seems to give the most control for both the nurse and pt to prevent aspiration.
[2023-01-02] MEDS: Glycopyrrolate 0.2 MG/1 ML VIAL IVP ×2 (09:36→12:52)
--- NOTE | 2023-01-02 15:27 | W.PM.DDS ---
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 He states he does not have chest pain or dizziness associated with falls.? He feels like his right legs gets weak and gives out.? He did not hit his head.? He denies pain right now other than some chronic back pain, for which he usually takes APAP 1000mg.? He was visited by the hospice intake nurse today but they were not able to admit him because he did not have a small animal caretaker and they felt he should be placed in a rn long term care care facility for hospice care.? He remained here for end-of-life care. Medications adjusted as needed for his symptoms. He here as planned, body released per family arrangements. discussed with DR Godfrey Discharge Data Discharge Date/Time-TO BE ENTERED AT DEPARTURE: 01/02/23 17:57 Discharge Sum: Prov Provider Consults: 12/23/22 22:12 Palliative Care Consult [CONS] Routine Consultation Status:: Follow-up needed Clarification:: Manage/follow per spec. Reason for consult:: 82 yo M with Hodgkins Lymphoma, new brain mets with falls, has decided to forgo further disease-directed therapy 12/24/22 14:19 Respiratory Therapy Consult [CONS] Routine Consultation Status:: Contact made by Clarification:: Manage/follow per spec. Reason for consult:: Lung Cancer, increased SOB Discharge Sum: Diag Contributing Factors (1) Comfort measures only status:
--- NOTE | 2023-01-02 15:38 | NUR.NOTE ---
Patients respirations became irregular & long periods of apnea. @ 1455 patient had taken his last breath & upon auscultation & palpation there were no signs of life. bar useful or busser Kim was informed & confirmed patient had . Post mortem care was performed as per policy. Patients family was called & informed of loss. Nursing Note:
--- NOTE | 2023-01-02 16:24 | PDOC.CMPRO ---
Date of service: 01/02/23 Time of Service: 16:24 Care Management Progress Note Progress Note Text Progress Note Text: JERI visited Antwan today, he was unresponsive and appeared comfortable. Antwan this afternoon; per staff he was comfortable. His brother, Kai, who is coordinating final arrangements, was contacted by staff.
== END 2023-01-02 17:57 | disposition expired | DRG 54 ==
LOC: ER 18:44 → MS 21:25
PROVIDERS: Nurse Practitioner Family; Admitting Provider Family Medicine; Emergency Provider Emergency Medicine; PCP Family Medicine; Visit Provider Family Medicine
DX: C79.31 Secondary malignant neoplasm of brain (principal); G93.6 Cerebral edema; C81.90 Hodgkin lymphoma, unspecified, unspecified site; I48.20 Chronic atrial fibrillation, unspecified; G81.91 Hemiplegia, unspecified affecting right dominant side; Z51.5 Encounter for palliative care; D64.9 Anemia, unspecified; I25.10 Atherosclerotic heart disease of native coronary artery without angina pectoris; N18.30 Chronic kidney disease, stage 3 unspecified; Z95.1 Presence of aortocoronary bypass graft; W19.XXXA Unspecified fall, initial encounter; E86.0 Dehydration; N40.0 Benign prostatic hyperplasia without lower urinary tract symptoms; E87.6 Hypokalemia; E83.42 Hypomagnesemia; Z95.828 Presence of other vascular implants and grafts; Z95.0 Presence of cardiac pacemaker; R53.1 Weakness; I12.9 Hypertensive chronic kidney disease with stage 1 through stage 4 chronic kidney disease, or unspecified chronic kidney disease; Z66 Do not resuscitate; R29.6 Repeated falls; Z91.81 History of falling; R41.0 Disorientation, unspecified
CPT/HCPCS: 36415; 73562; 80048; 80053; 82550; 93005; 96361; 96365; 96375; 97110; 97162; 99285; 70450; 71046; 72170; 81003; 81015; 83735; 83880; 84443; 84484; 85025; 93010; 99232; 99233; 99238; J1100; J1170; J1200; J1630; J1953; J2060; J2270; J2405; J3360; J3490; J8540